=== PATIENT | male | born 1930 | race Caucasian/White ===

== ENCOUNTER 2018-12-19 09:52 | Inpatient (IN) | payer OTHER ==
[~2018-12-19] VITALS: Ht 172.7 cm; Wt 73.0 kg
[~2018-12-19 09:52] MED LIST: AMBEREN; ANUCORT-HC25 MG RECTAL; ASPIRIN EC81 M1 PO; ATENOLOL; ATENOLOL 50MG T50 M1 PO; AUGMENTIN 875875 MG PO; HUMALIN; HUMULINR100 SUBQ; LANTUS; LISINOPRIL; NEURONTIN 300300 M1 PO; NORCO 5-325 TA1 EACH PO; SIMVASTATIN40 MG PO; ZESTRIL20 MG PO
[2018-12-19 10:00] VITALS: BP 144/82
[2018-12-19 10:31] LABS: BASOPHILS 0.5 % (0.0-2.0); EOSINOPHILS 0.3 % (0.0-3.0); HEMATOCRIT 47.1 % (42.0-52.0); HEMOGLOBIN 15.9 gm/dL (14.0-18.0); LYMPHOCYTES 14.1 % (24.0-44.0); MCH 29.2 pg (26.0-34.0); MCHC 33.8 g/dL (28.0-37.0); MCV 86.2 fL (80.0-100.0); MONOCYTES 6.4 % (1.0-8.0); PLATELET COUNT 237 thou/uL (150-400); POLYS 78.7 % (36.0-66.0); RBC 5.46 mil/uL (4.50-6.00); RDW 13.8 % (10.5-14.5); WBC 7.6 thou/uL (4.0-11.0)
[2018-12-19 10:40] LABS: ANION GAP 9 mmol/L (7-16); BUN 18 mg/dL (7-18); CHLORIDE 98 mmol/L (98-107); CO2 30 mmol/L (21-32); CREATININE 1.3 mg/dL (0.7-1.3); GLUCOSE 263 mg/dL (74-106); POTASSIUM 3.8 mmol/L (3.5-5.1); SODIUM 137 mmol/L (136-145)
[2018-12-19 10:50] LABS: ALBUMIN 3.6 g/dL (3.4-5.0); SGOT 17 U/L (15-37); SGPT 17 U/L (30-65); TOTAL BILIRUBIN 0.6 mg/dL (<0.1-1.0); TOTAL PROTEIN 7.2 g/dL (6.4-8.2); TROPONIN-I <0.06 ng/mL (<0.06)
[2018-12-19 12:02] LABS: URINE BILIRUBIN NEGATIVE (Negative); URINE BLOOD 1+ (Negative); URINE CLARITY CLEAR; URINE COLOR YELLOW; URINE GLUCOSE-RANDOM* NEGATIVE (Negative); URINE KETONES 1+ (Negative); URINE PROTEIN (DIPSTICK) 2+ (Negative); URINE SPECIFIC GRAVITY 1.025 (1.005-1.035); URINE UROBILINOGEN 0.2 E.U./dl (0.2-1.0)
[2018-12-19 12:03] LABS: URINE LEUKOCYTES-REFLEX 2+ (Negative); URINE NITRITE-REFLEX POSITIVE (Negative)
[2018-12-19 12:06] LABS: AMP/METHAMP Negative (Negative); BARBITURATES Negative (Negative); BENZODIAZEPINES Negative (Negative); COCAINE Negative (Negative); METHADONE Negative (Negative); OPIATES Negative (Negative); PCP Negative (Negative)
[2018-12-19 12:11] LABS: BACTERIA-REFLEX >30 Many /HPF (None Seen); CASTS None Seen /LPF (None Seen); CRYSTALS None Seen /LPF (None Seen); SQUAMOUS None Seen /LPF (0-3); URINE RBC 0-2 Rare /HPF (0-2)
[2018-12-19 12:53] VITALS: BP 130/82
[2018-12-19 15:20] VITALS: BP 153/87
[2018-12-19] MEDS ORDERED: HUMULIN R100 UNIT/M SUBQ (15:20)
--- NOTE | 2018-12-19 16:26 | EKG ---
[place] [address] [facility] [place] [address] ELECTROCARDIOGRAM REPORT Name: VICENTAGERMAIN LAIRD Room #: 523B-B ADM IN M.R.#: [id number] ������������������ Admission: 12/19/18 ������������������ Attend Phys: Nino Murphy DO Discharge: ������������������ Date of : 32 Report #: [id number] ����������������������������������������������������������������� [id number] THIS REPORT FOR: //name// [facility] ED Test Date: 2018-12-19 Test Time: 10:22:25 Pat Name: GERMAIN YADAV Department: Room: [facility] Gender: M Cutter Operator: CLIFFORD : 1930 Requested By: Rachel Wong Order Number: [id number] MD: Aldo Suarez Measurements Intervals [place] Rate: 86 P: 80 MS: 154 QRS: -63 QRSD: 89 T: 78 QT: 383 QTc: 458 Interpretive Statements Sinus rhythm Multiform ventricular premature complexes Probable left atrial enlargement RSR' in V1 or V2, right VCD or RVH Inferior infarct, old Consider anterior infarct Electronically Signed On 12-19-2018 16:25:53 CDT by Aldo Suarez [email or web address] ��������������������������������������������� <ELECTRONICALLY SIGNED> ���������������������������������������� By: Aldo Suarez MD ��������������������������������������������� 12/19/18 1625 1022 1022 Aldo Suarez MD /EPI
--- NOTE | 2018-12-19 19:08 | NUR ---
PATIENT ARRIVED TO THE SENIOR BEHAVIORAL UNIT FROM ER AT 1336HOURS. ADMITTED TO ROOM 523-B. PATIENT IS ALERT, RESPONDS APPROPRIATELY TO ASSESSMENT QUESTIONS. PATIENT HAS PERIODS OF FORGETFULNESS, CONFUSION AND DISORGANIZED THOUGHTS. ACCORDING TO REPORT, PATIENT HAS DIAGNOSIS OF DEMENTIA. PATIENT IS ADMITTED BECAUSE HE WAS HAVING HALLUCINATION THAT HIS WAS IN DANGER, CALLED 911 MULTIPLE TIMES. HAS BEEN IN A FACILITY FOR SOME TIME PER REPORT. REPORT ALSO STATES THAT PATIENT VERBALLY THREATENED FAMILY MEMBERS. PATIENT HAS UROSTOMY BAG. REPORT STATES PATIENT RECEIVED A DOSE OF CEFTRIAXONE IN THE ER FOR POTENTIAL URINARY TRACT INFECTION. PATIENT IS VOLUNTARY AT THIS TIME. PATIENT DENIES SUCIDAL AND HOMOCIDAL IDEATION. HE DENIES DEPRESSION AND ANXIETY. LCTA, BS+X4, ABD SOFT NON-TENDER TO TOUCH. PATIENT DID EAT SUPPER. THIS NURSE CALLED DR. DIAZ' OFFICE TO SPEAK WITH A NURSE FOR MEDICATION LIST PER DR. AYALA DIRECTION, SPOKE WITH DR. DIAZ WHO STATES HE WILL PERSONALLY PUT IN HIS OWN ORDERS. BLOOD SUGAR BEFORE SUPPER WITH RESULT OF 202, HAS ORDERS FOR INSULIN TO START TOMORROW. PATIENT HAD A SHOWER AFTER SUPPER, DENIES HAVING PHYSICAL PAIN. PATIENT CURRENTLY IN BED RESTING, WILL MONITOR FOR SAFETY.
[2018-12-19 20:34] VITALS: BP 163/83
--- NOTE | 2018-12-19 23:52 | NUR ---
ASSUMED CARE OF THE PT AT 191 PM. ALERT ET CONFUSED AT TIMES, THOUGHT ONE OF THE OTHER PTS WAS HIS . WALKS WITH A STEADY GAIT. THE PT HAS A UROSTOMY BAG IN PLACE WITH URINE DRAINING IN IT WITHOUT ANY DIFFICULTY. DENIES ANXIETY AND DEPRESSION. DENIES SI/HI/A/V HALLUNICATIONS. REMAINS ON 12 MINUTE CHECKS FOR HIS SAFETY.
--- NOTE | 2018-12-20 05:45 | NUR ---
THE PT SLEPT MOST OF THE NIGHT. THIS MAGNETIC OBSERVER EMPTIED HIS UROLOGY BAG, IT HAD 250 CC OF CLEAR RACHAEL URINE. DEMI ET ROXI THIS AM.
[2018-12-20 06:10] LABS: CHOLESTEROL 182 mg/dL (<200); HDL CHOLESTEROL 62 mg/dL (>40); LDL CHOLESTEROL 107 mg/dL (<100); TC:HDL 2.9 Ratio (Not establshd); TRIGLYCERIDE 66 mg/dL (<150); VLDL 13 mg/dL (<40)
[2018-12-20 06:20] LABS: SERUM ASSESSMENT Clear
--- NOTE | 2018-12-20 06:38 | NUR ---
HTE PT SLEPT 6.8 HOURS LAST NIGHT.
[2018-12-20 07:44] VITALS: BP 145/74
[2018-12-20 12:18] VITALS: BP 1599/76
--- NOTE | 2018-12-20 18:57 | NUR ---
ASSUMED CARE AT 0715 TODAY. HE STATES HE IS ONLY WAS HERE BECAUSE HE WENT TO SEE HIS AT THE AL AT 0300. HE SPOKE WITH THE DR. WAS ON THE UNIT FOR MEALS AND ATTENDED GROUPS. HAS NO INSITE INTO WHAT BROUGHT HIM HERE. DENIES SI/HI, AVH. TOOK MEDICATIONS WITHOUT PROBLEMS.
[2018-12-20 19:23] VITALS: BP 136/70
--- NOTE | 2018-12-20 20:06 | NUR ---
ASSUMED CARE @ 19:15. IN ROOM IN BED. A&OX3. UNSURE OF THE DATE, AND HE REPORTS THAT IS HERE BECAUSE HE GOT ARRESTED FOR CALLING THE POLICE DUE TO HIS NOT BEING IN BED WHEN HE WOKE UP. HRRR LUNGS CTA, COLOSTOMY BAG INTACT. PT EMPTIED IT BY HIMSELF. CONVERSATIONAL AND ARTICULATE, HOWEVER HAS POOR INSIGHT INTO REASON FOR INPATIENT IN HOSPITAL. WILL CONTINUE TO MONITOR.
[2018-12-20 21:28] VITALS: BP 136/70
--- NOTE | 2018-12-20 21:42 | H ---
[facility] [place] [address] HISTORY AND PHYSICAL Name: GERMAIN MACK Room #: 523B-B ADM IN M.R.#: [id number] Admission: 12/19/18 ������������������ Attend Phys: Nino Murphy DO Discharge: ������������������ Date of : 32 Report #: [id number] THIS REPORT FOR: //name// CC: Nino Murphy FAM unknown DATE OF SERVICE: 12/19/2018 ADMIT CONSULT NOTE CHIEF COMPLAINT: Altered mental status. HISTORY OF PRESENT ILLNESS: The patient is an 88-year-old male, who is currently living alone. Up until recently, approximately the last 2 or 3 weeks ago, he was living in his home with his of over 60 years, Jazmine Mack. Mrs. Mack was hospitalized at [facility] with problems related to urinary tract infection and showed signs of neglect as evidenced by bed sores in multiple areas. At that time, I had lengthy visits with the patient and I suggested that it was time his move to a senior care and if he wanted he could choose to move in with her so that he could stay with her and that would be fine, but I did not think it was a good idea for her to stay at home anymore and I did not feel that he was capable of managing her care further. Since that time, I have received multiple phone calls from the patient's daughter, Cheyenne and her , Nguyen Dobbins and also phone calls at the office from them and from the patient's grandson, also named Germain or Fadi. They have been concerned at the elder the patient's increasing problems with confusion and poor memory and signs of poor judgment. For example, the patient has woken up and forgot that his no longer lives in the same house that he does and gone looking for her in the middle of the night. He has believed at different times that she had wandered off and other times that she had been kidnapped and has been quite distraught sometimes wondering what happened to her. I have also been informed by family members that and this was confirmed by senior care staff where his currently resides that the patient appeared at the senior care at 02:00 a.m. in the morning to visit his one day. 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 I have spoken with the patient in the past about limiting his driving or stopping completely and he merely states that he knows that that day is coming, but does not believe that it is here yet. I did advise more than one family member that they should call the [facility] to lodge a anonymous complaint if they [facility] [address] [place] [address] HISTORY AND PHYSICAL Name: GERMAIN MACK Room #: 523B-B ADM IN M.R.#: [id number] Admission: 12/19/18 ������������������ Attend Phys: Nino Murphy DO Discharge: ������������������ Date of : 32 Report #: [id number] saw the patient engaged in any such risky behaviors. Approximately 24 hours prior to this admission, I spoke with the elder, the patient by telephone. He again had significant delusions from which he was suffering that were obvious during our conversation. Several times, he referred to the fact that his was sleeping in the bedroom at their home where he was currently speaking to me. Then, he would state that she was not in bed and he could not find her and he was prophylaxed because he had "locked all the doors and windows, so she could not get out." Sometimes, he would then recollect that she was living at the senior care. I specifically asked him about some suicidal thoughts that he had communicated out loud in the presence of family members and he denied ever having made those claims or of having any suicidal intentions. He does possess a handgun, according to his daughter, Cheyenne and her Nguyen. Reportedly, his other daughter has an electronic computer file of a voice mail message that he left in which she was floridly delusional and threatening to multiple family members. In fact, I can confirm to this from personal experience during my phone call with him prior to this hospital stay. He was very angry at family members trying to get him help and referred to both of his daughters as ____ and jeremias. PAST MEDICAL HISTORY: The patient has a history of coronary artery disease and had coronary bypass surgery approximately 25 years ago. He has a history of bladder cancer and actually had cystectomy and prostatectomy 20 years ago and has a urostomy bag. He has also had cataract surgeries and hernia and tonsil surgeries in the past. He has a history of high blood pressure, hyperlipidemia and has had type 2 diabetes mellitus for well over 20 years. He doses himself with insulin despite increasingly bad vision, see above discussion. He has peripheral neuropathy. He has hemorrhoids. ALLERGIES: He has no known drug allergies. MEDICATIONS: Simvastatin 20 mg by mouth daily, gabapentin 600 mg p.o. at bedtime, aspirin 81 mg p.o. daily, lisinopril 20 mg p.o. daily, atenolol 50 mg p.o. daily. He uses Humulin R 15 units before breakfast and 22 units before lunch and dinner. He was recently on hydrocortisone acetate suppositories for inflamed hemorrhoids. FAMILY HISTORY: Not available. 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 He also has a grandson. He quit smoking many years ago about the time of his bypass surgery. No history of alcohol or other drug abuse. [facility] [address] [place] [address] HISTORY AND PHYSICAL Name: GERMAIN MACK Room #: 523B-B ADM IN .R.#: [id number] Admission: 12/19/18 ������������������ Attend Phys: Nino Murphy DO Discharge: ������������������ Date of : 32 Report #: [id number] REVIEW OF SYSTEMS: The patient insists that he is fine. He denies any headaches or problems with sleeping. He states that his vision is stable. He has not been checking his blood sugars recently. His hemorrhoids are better. He denies any recent falls or trauma. He denies any motor vehicle collisions. He denies chest pain or shortness of breath. He denies abdominal pain. He states that his bowel habits are regular. He denies any other significant aches or pains or concerns. He denies any confusion. When I asked him how he would handle his elderly 's lack of urine and stool continence, he replied to me that he had been a tester electronic scale his whole adult life and had been up to his keister in worse situations. PHYSICAL EXAMINATION: VITAL SIGNS: From the Emergency Room today show temperature of 36.2 degrees centigrade, pulse of 86, respirations of 17, blood pressure of 144/82 with a room air pulse oximetry of 99%. His reported weight is 141 pounds. GENERAL: The patient is a very pleasant elderly white male, who is very chatty. HEENT: The extraocular muscles are intact. Gross vision is not reassessed today, but is known to be fairly poor, although he can make out shapes and images and is wearing his glasses. Oropharynx is moist and pink. NECK: Supple. There is no adenopathy or thyromegaly or mass or JVD or bruit. LUNGS: Fairly clear bilaterally. CARDIOVASCULAR: Reveals a regular rhythm. ABDOMEN: Soft. Bowel sounds are present. No visceromegaly or masses. There is an urostomy in the right lower quadrant. EXTREMITIES: Without cyanosis or clubbing or peripheral edema. NEUROLOGIC: The patient has stocking glove distribution of sensory loss bilaterally. He has no other focal deficits except decreased vision. I did not perform an ophthalmoscopic exam or an otoscopic exam today. His hearing is grossly normal though. MENTAL STATUS: The patient is alert. He is oriented to person and place, but not time. No hallucinations at the time of my visit, but he did mention that there were strangers in his house when we spoke by phone recently. No one else has seen them or could confirm any such problem. At the moment of my exam, the patient did not appear delusional and was aware that his was in a senior care and that he was in the hospital. He had a full affect. I did not aggressively test his short and long-term memory. The paranoia which was marked during our telephone conversation today prior to this admission was much less in evidence today. ASSESSMENT AND PLAN: 1. Altered mental status - Etiology is likely to be multifactorial. I do believe the patient has some underlying dementia. However, it is difficult to isolate that from the fact that he is bordering on [facility] caret at the fact that his lifelong partner is not living in the same home that he is. Considerations include depression and adjustment disorder. I am grateful that he can be hospitalized for his safety while his mental and physical status is further [facility] [address] [place] [address] HISTORY AND PHYSICAL Name: GERMAIN MAKC Room #: 523B-B ADM IN José Miguel.#: [id number] Admission: 12/19/18 ������������������ Attend Phys: Nino Murphy, Discharge: ������������������ Date of : 32 Report #: [id number] evaluated. 2. Type 2 diabetes mellitus. The patient has a fairly benign lab workup in the Emergency Room, hyperglycemia was noted. My last lab tests for him were from in 07/2017. At that time, his lipids were good with a total cholesterol of 188. He has dirty urine because of the urostomy. His blood chemistry was remarkably good with glucose of 191 and elevated, but creatinine was 1.07. Electrolytes were essentially normal. Liver functions were normal. CBC showed a white count of 7100 with hemoglobin of 15.7, hematocrit of 225 and a normal differential. His hemoglobin A1c at that time however was 10.4, with a goal of hemoglobin A1c of 7 or slightly less. Given the patient's poor eyesight and the need to treat with insulin and inability to monitor his own blood sugar adequately or accurately, he is a great danger of problems related to its management, such as hypoglycemia and hyperglycemia. It is not clear if he is able to make good dietary choices at the present time because of his limited ability to cook for himself and relying on highly processed food for his meals. 3. Hypertension - We will monitor and treat accordingly. Goal is average systolic blood pressure of less than 140. 4. History of bladder cancer as outlined above - No evidence of recurrence. 5. Hyperlipidemia. We will continue him on medication for that. 6. History of coronary artery disease without evidence of angina. I am grateful for Dr. Murphy's getting involved in this challenging case and hope that we can help the patient with the aforementioned problems and return to a safe and productive lifestyle. ��������������������������������������������� <ELECTRONICALLY SIGNED> ���������������������������������������� By: Kvng Funes MD ��������������������������������������������� 12/20/18 2142 2327 0104 Kvng Funes MD /nt
[2018-12-21 00:06] LABS: GLYCOHEMOGLOBIN (HGB A1C) 9.5 % (4.8-5.6)
--- NOTE | 2018-12-21 05:16 | NUR ---
SLEPT IN BED, FOR A TOTAL OF 8 HOURS.
[2018-12-21 08:30] VITALS: BP 144/81
--- NOTE | 2018-12-21 09:35 | H ---
[facility] [address] [address] HISTORY AND PHYSICAL Name: GERMAIN YADAV Room #: 523B-B ADM IN M.R.#: [id number] Admission: 12/19/18 ������������������ Attend Phys: Nino Murphy DO Discharge: ������������������ Date of : 32 Report #: [id number] THIS REPORT FOR: //name// CC: Nino Murphy [facility] unknown DATE OF SERVICE: 12/19/2018 ATTENDING PHYSICIAN: Nino Murphy DO X RAY CONSULTANT: Kvng Funes MD REASON FOR ADMISSION: The patient brought to the Emergency Room by [place], [place] [employer], CIT officer, Dax, for repeated calls to the police, believes his was in the residence, though she has been placed several weeks back at a long term. I also spoke with the patient's daughter, Erlinda and her . HISTORY OF PRESENT ILLNESS: This is an 88-year-old male seen in the Emergency Room and then on the [facility]. The patient is giving a history that he had seen his at home. She has not been cared for. He minimizes any degree of cognitive impairment that he may have. The patient was not fully oriented to time and place. Interestingly, his residence was not disheveled according to the CIT officer. I spoke with Dr. Funes who states that the patient is unable to manage his diabetes mellitus appropriately. There have been ongoing concerns about his ability to live independently. Dr. Funes has been contacted with reports from his children that the patient is threatening his life. He has not made any kind of suicide attempt yet. The patient's is in the Alzheimer's unit with advanced dementia. He, in addition, according to the ER, called Dr. Funes' office to report that his is missing. Dr. Funes reports his episodes are more progressive. In the ER, the patient denied SI or HI. He reports his last visit with Dr. Funes was a few weeks ago. He denies recent illness. PCP, Dr. Funes. Affidavit done by family members that the patient has been hallucinating, verbally threatening to harm family members. PAST MEDICAL HISTORY: Includes High blood pressure, hypertension, diabetes mellitus, hyperlipidemia, bladder and prostate removed in 2005, has a urostomy bag, unclear if it was for cancer or other purposes. PAST SURGICAL HISTORY: CABG x 3, herniorrhaphy, tonsillectomy. HOME MEDICATIONS: Simvastatin 40 mg p.o. at bedtime, aspirin 81 mg p.o. daily, atenolol 50 mg p.o. at bedtime, insulin regular 15 units subcutaneously for breakfast, insulin regular 22 units subQ b.i.d., lisinopril 20 mg p.o. daily, [address] [address] HISTORY AND PHYSICAL Name: GERMAIN YADAV Room #: 523B-B ADM IN M.R.#: [id number] Admission: 12/19/18 ������������������ Attend Phys: Nino Murphy DO Discharge: ������������������ Date of : 32 Report #: [id number] Neurontin 600 mg at bedtime. I do not think that is an accurate medication regimen for the patient. I put him on 5 units of regular insulin t.i.d. with meals as well as making his Neurontin 200 mg 3 times a day besides the usual PRNs. I will defer other general meds to Dr. Funes' judgment. SOCIAL HISTORY: Denies recreational alcohol use, tobacco use. ALLERGIES: No known drug intolerance. REVIEW OF SYSTEMS: Done in the Emergency Room today: CONSTITUTIONAL: Negative for fever or chills. EYES: Negative for eye pain or visual change. HEENT: Negative for rhinorrhea or sore throat. RESPIRATORY: Negative for cough or shortness of breath. CARDIOVASCULAR: Negative for chest pains or palpitations. GASTROINTESTINAL: Negative for abdominal pain. No nausea, vomiting or diarrhea. GENITOURINARY: Negative for burning and urgency, frequency or hematuria. MUSCULOSKELETAL: Negative for back pain or muscle pain. SKIN: Negative for any rash. NEUROLOGIC: Negative for numbness, tingling or weakness. Otherwise, 10-point review of systems done by the ER staff was negative. PHYSICAL EXAMINATION: VITAL SIGNS: Today, BP 144/82, O2 sats 99%, temperature 36.2, pulse 86, respirations 17, weight 63.96 kilos which is 141 pounds. NEUROLOGIC: Normal gait and station. His physical exam was positive for urostomy bag in right lower quadrant. Otherwise, grossly negative. EKG done showed sinus rhythm, PVCs occasionally rate of 86. No STEMI. No EKG for comparison. LABORATORY DATA: Sodium 137, potassium 3.8, chloride 98, bicarbonate 30, anion gap 9, BUN 18, creatinine 1.3, estimated GFR 263, glucose 263, calcium 10.0, total bilirubin 0.6, AST 17, ALT 17, alkaline phosphatase 118. Troponin less than 0.06, albumin 3.6. CBC: H and H 15.9 and 47.1, white count 7.6, platelet count 237. UDS is negative. Urinalysis showed greater than 30 bacteria, 16-25 wbc's, positive nitrites, negative bilirubin, urine protein 2+, urine ketones 1+, urine blood 1+. The patient was given 1 g of Rocephin IV piggyback in the ER. I will defer to Dr. Funes but would overall recommend him to get a second dose 1 gram of Rocephin on 12/20/2018 and 12/21/2018. CURRENT MEDICATIONS IN THE HOSPITAL: It looks like Dr. Funes has written [facility] [address] [place] [address] HISTORY AND PHYSICAL Name: GERMAIN YADAV Room #: 523B-B ADM IN M.R.#: [id number] Admission: 12/19/18 ������������������ Attend Phys: Nino Murphy, Discharge: ������������������ Date of : 32 Report #: [id number] lisinopril 20 mg p.o. daily, Atorvastatin 40 mg p.o. daily. Aspirin 81 mg p.o. daily, insulin regular 15 units a.c. subq, gabapentin 200 mg t.i.d., ondansetron 4 mg p.o. q. 6 hours p.r.n. IMAGING THIS ADMISSION: None so far. MICROBIOLOGY: Urine cultures have been received. MENTAL STATUS EXAMINATION: This is a well-developed male appearing his stated age. Attention is limited, concentration is limited. Speech, increased rate and volume. Some psychomotor agitation, no psychomotor retardation. Denied auditory, visual or tactile hallucinations. Denied suicidal intent or plan. Denied hopelessness, helplessness. Denies homicidal intent or plan. Memory not formally tested. FORMULATION: An 88-year-old male brought from his residence for dementia evaluation. PLAN: OT, PT consult. Evaluate and stabilize. Patient likely will require Guardian/Conservator for placement in a memory care facility. . MEDICATIONS: I went ahead and made his Neurontin 200 mg 3 times a day, which will act as a mood stabilizer given many medicines he is on. Otherwise, I would like to screen her on second hospital day. time spent on evaluation, reveview of records and coordination of care was greater than 90 minutes. ESTIMATED LENGTH OF STAY: 10-14 days. STRENGTHS: He is not sure. WEAKNESSES: Stuck with family. is already institutionalized. ��������������������������������������������� <ELECTRONICALLY SIGNED> ���������������������������������������� By: Nino Murphy DO ��������������������������������������������� 12/21/18 0935 1802 1939 Nino Murphy DO /nt
--- NOTE | 2018-12-21 10:36 | NUR ---
ASSUMED PATIENT CARE AT 0700. PATIENT UP IN DR AT THAT TIME. CONFUSED MOOD, HAPPY AFFECT, NO BEHAVIOERS. VSS, COMPLIANT WITH MEDICATIONS. CONTINUE TO MONITORL.
[2018-12-21 14:48] VITALS: BP 146/50
[2018-12-21 20:09] VITALS: BP 133/71
--- NOTE | 2018-12-21 20:39 | NUR ---
Pt resting in bed at beginning of shift, requesting fluids for dry mouth. Pt drank water and juice. When pt awakened he rearranged the sheets on his bed 3 times. Pt compliant with medication. Pt ambulating steady and independently. fsbs 195, previously was 78 and didn not receive dinner insulin. Pt remains alert to self and situation, not time. No statements at this time regarding hallucinations or delusions.
--- NOTE | 2018-12-21 21:40 | NUR ---
C/S results reviewed by Dr Murphy and Jona x 1 ordered.
--- NOTE | 2018-12-21 21:53 | NUR ---
Pt compliant with IM antibiotic, he verbalized understanding that he had a urinary infection upon arrival to hospital.
--- NOTE | 2018-12-22 05:52 | NUR ---
Pt had urostomy bag leak, new one provided and pt changed himself.
[2018-12-22 07:30] VITALS: BP 140/75
[2018-12-22 09:00] VITALS: BP 140/75
--- NOTE | 2018-12-22 10:28 | NUR ---
PT HAS BEEN IN HIS ROOM THIS AM. PT REFUSING MEDS AND EATING. PT STATED HE DIDN'T WANT TO IN HERE. PT STATED THAT YESTERDAY HE WAS TOLD HE HAD A LITTLE ALZHEIMERS. HE STATED HE WANTS TO GO BACK TO HIS HOME. PT STATED THAT HE WILL DRINK FLUIDS, BUT NOT EAT. PT ALMOST DIDN'T WANT BLOOD SUGAR TAKEN. THIS NURSE ENCORAGED TO EAT AND TAKE MES. PT DID TAKE PO MEDS FOR NURSE. PT TALKED ABOUT POLICE COMING TO HIS HOUSE AT 0300. HE SAID HE DIDN'T DO ANYTHING WRONG. NOW HE IS HERE.
--- NOTE | 2018-12-22 13:30 | NUR ---
PT UP WALKING IN [place] AND HE IS GOING TO GROUP NOW.
--- NOTE | 2018-12-22 17:20 | NUR ---
PT DID EAT DINNER THIS EVENING. PT ASKED ABOUT CARLO ABOUT IF HE SHOULD EAT DINNER. ENCOURAGED HIM TO EAT.
[2018-12-22 20:37] VITALS: BP 126/72
--- NOTE | 2018-12-23 02:52 | NUR ---
ASSUMED CARE @ 19:15. I ROOM, LYING IN BED. OPENED EYES TO VOICE. REPORTED THAT HE IS HERE DUE TO A MISTAKE BY THE POLICE. THEY CALLED HIM, NOT THE OTHER WAY AROUND. A&OX2. ORIENTED ONLY TO SELF AND DATE. PO MEDS PROVIDED, AND TAKEN WHOLE WITH WATER. IM ROCEPHIN PROVIDED, PT QUESTIONED WHAT IT WAS FOR AND HE VERBALIZED UNDERSTANDING THAT HE HAS A UA WHEN HE CAME INTO THE HOSPITAL. WILL CONTINUE TO MONITOR.
[2018-12-23 04:00] VITALS: BP 126/72
--- NOTE | 2018-12-23 04:25 | NUR ---
SLEEPING THROUGHOUT THE NOC. RESPIRATIONS EVEN AND UNLABORED. WILL CONTINUE TO MONITOR.
[2018-12-23 07:50] VITALS: BP 113/56
[2018-12-23 14:12] VITALS: BP 113/56
--- NOTE | 2018-12-23 14:26 | NUR ---
[facility] AT 0715 TODAY. PT. ON THE UNIT FOR MEALS AND GROUPS. SPENT MOST OF THE REST OF THE TIME IN HIS ROOM LYING ON THE BED. DID TALK TO ANOTHER PEER FOR A PERIOD OF TIME AFTER LUNCH.
[2018-12-23 22:20] VITALS: BP 138/69
--- NOTE | 2018-12-24 02:46 | NUR ---
ASSUMED CARE @ 19:00. IN ROOM LYING IN BED, AND ALSO WALKING FROM BEDROOM TO THE DAY ROOM. DENIES SI, HI, AND HALLUCINATIONS. TELLS AN EXTREMELY DISCONNECTED STORY REGARDING WHY HE IS HERE AN IN PATIENT. HE IS CONFUSED TO WHETHER THIS IS A HOSPITAL OR A MOTEL. HE SAYS THAT HE IS IN THE HOSPITAL BECAUSE HIS IN IN AN [facility]. 2100 MEDS GIVEN WHOLE WITH WATER. WILL CONTINUE TO MONITOR.
--- NOTE | 2018-12-24 02:50 | NUR ---
PATIENT OUT OF BED @ 0130. IS QUITE CONFUSED, LOOKING FOR HIS . SAYS HE THOUGHT SHE WAS IN THE SECOND BED IN HIS HOSPITAL ROOM. CONFUSED TO WHETHER HE IS IN A HOSPITAL OR IN A MOTEL. WORRIED ABOUT HIS WALLET, WORRIED ABOUT THE HOSPITAL BILL, WORRIED ABOUT HIS . ORDER OBTAINED FOR 50MG SEROQUEL @ 00:30. ALSO 50 MG SEROQUEL Q6 HOUR PRN ANXIETY AND AGITATION. WATCHED TV FOR A WHILE, AND THEN LAID DOWN. WILL CONTINUE TO MONITOR.
[2018-12-24 03:43] VITALS: BP 138/69
[2018-12-24 07:30] VITALS: BP 110/59
[2018-12-24 09:48] VITALS: BP 110/59
--- NOTE | 2018-12-24 10:02 | NUR ---
ASSUMED CARE AT 0600 THIS MORNING. PT. ROAMING THE HALLS LOOKING FOR HIS . HE TOLD STAFF HIS WAS IN THE OTHER BED IN HIS ROOM. HE WAS WANDERING IF ANYONE SAW HIS SHE IS NOT IN THE ROOM ANY LONGER. STAFF ATTEMPTED TO TELL THE PT. HIS IS NOT HERE AND HAS NOT BEEN. HE JUST SHOOK HIS HEAD AND SAID: I DON'T KNOW WHAT IS HAPPENING TO ME. HE THEN WENT TO HIS ROOM AND LAYED DOWN. HE THEN REFUSED BREAKFAST IN SPITE OF MANY FAILED ATTEMPTS BY STAFF TO GET PT. TO THE DINNING ROOM FOR BREAKFAST. HE WAS COMPLIANT WITH HIS MEDICATIONS.
[2018-12-24 20:57] VITALS: BP 128/76
--- NOTE | 2018-12-25 00:59 | EKG ---
[place] [address] [facility] [place] [employer] [place] [address] ELECTROCARDIOGRAM REPORT Name: KAROGERMAIN Albarran Room #: 523B-B ADM IN M.R.#: [id number] ������������������ Admission: 12/19/18 ������������������ Attend Phys: Nino Murphy DO Discharge: ������������������ Date of : 34 Report #: [id number] ����������������������������������������������������������������� [id number] THIS REPORT FOR: //name// [facility] Test Date: 2018-12-24 Test Time: 14:32:21 Pat Name: GERMAIN YADAV Department: Room: 523B B Gender: M Machine Cell Tuber: LENKA : 1930 Requested By: Nino Murphy Order Number: [id number] MD: Doron Duran Measurements Intervals [place] Rate: 88 P: 54 MI: 175 QRS: -65 QRSD: 91 T: 92 QT: 377 QTc: 457 Interpretive Statements Sinus rhythm Ventricular premature complex left axis deviation poor R wave progression Compared to ECG 12/19/2018 10:22:25 no significant changes Electronically Signed On 12-25-2018 0:59:28 CDT by Doron Duran [email or web address] ��������������������������������������������� <ELECTRONICALLY SIGNED> ���������������������������������������� By: Doron Duran MD ��������������������������������������������� 12/25/18 0059 [id number] Doron Duran MD /EPI
--- NOTE | 2018-12-25 03:37 | NUR ---
Resident alert and oriented x3. Resident was able to state name, location, date and time. HRR. Lungs CTA to all lobes. Abdomen soft, round and non-tender. Bowel sounds present x4. Resident states that his last BM was 12/22/18. Resident states that he feels constipated which is a chronic concern for him. Medications reviewed. Resident has PRN Milk of Magnesia ordered by MD. Medication offered to resident which he accepted. Resident denies having a bowel movement at this time. Resident has a history of bladder cancer. Resident has a urostomy to the lower abdomen. Urostomy bag is intact. Stoma draining clear, light yellow urine. Resident denies any pain or discomfort at this time. Resident blood sugar was 56 prior to this nurse assuming care of patient. Blood sugar re-checked and was 211 this evening. No s/s of hyper/hypoglycemia observed this shift. Resident has not displayed any exit seeking behaviors this shift. Skin appears warm, dry and intact. Resident does have a bruise to the top of his left forearm. Bruise is dark purple in color. Resident states that it was from having his blood drawn. Resident took medications whole with water with no concern. Resident educated on medications prescribed, usage and side effects. Resident fell asleep approximately 10pm and was up for approximately 30 minutes around 12am. Resident is resting in bed quietly at this time.
[2018-12-25 12:48] LABS: URINE BILIRUBIN NEGATIVE (Negative); URINE BLOOD TRACE (Negative); URINE CLARITY CLEAR; URINE COLOR YELLOW; URINE GLUCOSE-RANDOM* 1+ (Negative); URINE KETONES NEGATIVE (Negative); URINE NITRITE-REFLEX NEGATIVE (Negative); URINE PROTEIN (DIPSTICK) 1+ (Negative); URINE SPECIFIC GRAVITY 1.015 (1.005-1.035); URINE UROBILINOGEN 0.2 E.U./dl (0.2-1.0)
[2018-12-25 12:50] LABS: URINE LEUKOCYTES-REFLEX 2+ (Negative)
[2018-12-25 13:16] LABS: BACTERIA-REFLEX None Seen /HPF (None Seen); CASTS None Seen /LPF (None Seen); CRYSTALS None Seen /LPF (None Seen); SQUAMOUS 0-3 Few /LPF (0-3); URINE WBC-REFLEX 6-15 Few /HPF (0-5)
[2018-12-25 13:17] LABS: URINE RBC 3-10 Few /HPF (0-2)
[2018-12-25 13:33] VITALS: BP 93/47
--- NOTE | 2018-12-25 13:44 | NUR ---
ASSUMED CARE AT 0715 THIS MORNING. PT. IN BED AT THE TIME. BREAKFAST ARRIVED AT 0800. WHENT TO PT. ROOM TO GET HIM FOR BREAKFAST AND GIVE HIS MEDICATIONS. PT. LYING ACROSS THE BED, WRESTLING WITH HIS BLANKETS. WHEN THIS ACCOUNT DEVELOPMENT SPECIALIST ASKED THE PT. WHEN ASKED WHAT HE WAS DOING, HE RETORTED: I CAN'T GET UP. I CAN'T FIND THE WAY OUT OF HERE. THIS RN HELPED THE PT. UP AND WALKED HIM TO THE DINNING ROOM. PT. UP MOST OF THE DAY ON THE UNIT, ATTENDING GROUP. HE CONTINUED TO BE CONFUSED BUT LESS CONFUSED LUNCH TIME THAN HE WAS THIS MORNING. MADE MED CHANGES TO ASSIST WITH PT'S INCREASED CONFUSION. HIS INSULIN ALSO WAS CHANGED. HE DENIES SI/HI, BUT DOES TALK SOME ABOUT AVH IN THE FORM OF PEOPLE TALKING TO HIM. UA COLLECTED AND SENT TO LAB PER ORDER LAB SHOWED ABNORMAL. STARTED PT. ON ABO. PT. INFORMED OF CHANGES.
[2018-12-25 19:42] VITALS: BP 115/63
--- NOTE | 2018-12-25 23:09 | NUR ---
Patient sitting in dining room at time of this nurse assuming care. Patient denies any SI/HI/AH/VH. Patient has had flight of ideas, delusional thoughts on why or how he arrived for admission. Patient would change stories multiple times. Difficulty focusing. Patient received second dose of Amoxicillin for the diagnosis of UTI. No s/s of adverse effects observed at this time. Patient reports feeling constipated at times, then reports that he had a BM yesterday 12/24/18. Abdomen soft, round, nontender. Bowel sounds present x4. Patient became tearful when he talked about his . Reports that he is feeling guilty about having her admitted to a group home. No wandering observed. Patient took medication without difficulty. Education provided on prescribed antibiotic treatment and infectious process. Patient resting quietly in bed at this time.
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
[2018-12-26 07:35] VITALS: BP 119/57
--- NOTE | 2018-12-26 08:50 | NUR ---
0715: Report from noc shift, care assumed. Initial assessment completed, pt concerned about urostomy leaking, exam negative, reassured pt that no leak noted, pt accepted information, dressed self for a.m. meal, ambulatory to DR, feeds self, scheduled Insulin given, a.m. accu-check 184. Confusion noted with instructions, forgets easily about taking pills, attempted to pour pills in coffee, re-direction successful. No agitation noted at this time.
--- NOTE | 2018-12-26 11:27 | NUR ---
Weekly Recreational Therapy Progress Note Date of Admission: 12/19/18 Date of Activity Therapy Assessment: 12/22/18 Activity Goal: Patient will participate in 1 recreational therapy group per day until discharge. Initial Goal: 1 group per day. Weekly progress towards goal: On track Group participation level: Moderate Behaviors observed: Ocassional disorientation, tearful at times when speaking about , perseverates on situation and RFV, less isolation to room. Plan: No change towards goal
[2018-12-26 19:28] VITALS: BP 111/53
--- NOTE | 2018-12-26 20:59 | NUR ---
Pt watchiing tv in day room and had hs snack. Compliant with fsbs and medications. Caring for own urostomy bag. Two more ordered from CS. Pt smiling hugging linnette nurses upon arrival. No verbalizations regarding delusions or hallucinations.
--- NOTE | 2018-12-26 21:12 | NUR ---
Pt focusing on urostomy bag not having enough stick in the tape. He was ruminating on this fact and walking in lanza and room without a bag attached. Pt provided new bag with adherence and redirected to place on.
[2018-12-27 07:00] VITALS: BP 86/60
--- NOTE | 2018-12-27 08:53 | NUR ---
0720: Report from [facility] shift, care assumed. Awake, ambulating in halls, gait steady, speech clear/appropriate for age. Ambulatory to DR, watching TV quietly, accu-check 210, scheduled insulin to be given with a.m. meal. Denies pain or contipation, states last BM on 12/24. Continues on ABT for UTI, no adverse reactions noted. Takes a.m. meds whole w/o difficulty. 0830: Lisinopril po held for b/p of 86/60, will re-check b/p for monitoring.
[2018-12-27 20:28] VITALS: BP 143/75
--- NOTE | 2018-12-27 20:50 | NUR ---
ASSUMED CARE @ 19:15. IN ROOM, A&OX2. AMBULATING AD CARRIE.
--- NOTE | 2018-12-28 01:19 | NUR ---
TOOK 2100 MEDS WHOLE WITH WATER. IN BED AT THIS TIME, EYES CLOSED, RESPIRATIONS EVEN AND UNLABORED. WILL CONTINUE TO MONITOR.
[2018-12-28 01:22] VITALS: BP 143/75
--- NOTE | 2018-12-28 03:08 | NUR ---
CONTINUES TO BE IN BED, RESPIRATIONS EVEN AND UNLABORED. WILL CONTINUE TO MONITOR.
[2018-12-28 07:30] VITALS: BP 123/54
--- NOTE | 2018-12-28 11:55 | NUR ---
RONNIE spoke wiht Jay Avalos [phone] privacy attorney for pt's dghts. they will be seeking guardianship. This information has been supplied to and RONNIE in email. Seafood Manager has requested that a letter of incapacitation be sent to [phone] or email [email or web address]. This is expected to be filed Tuesday, Tue or .
[2018-12-28 12:22] VITALS: BP 123/54
--- NOTE | 2018-12-28 12:29 | NUR ---
ASSUMED CARE AT 0715 TODAY. WAS IN BED AT THE START OF THE SHIFT. B/P, BLOOD SUGAR TAKEN. HE GOT UP FOR BREAKFAST. AFTER BREAKFAST HE ATTENDED GROUP THEN SAT AND TALKED WITH FEMALE PEER. DENIES SI/HI OR AVH. VERBALIZED NOT UNDERSTANDING WHY HE IS STILL HERE. HE BLAMES HIS DAUGHTER FOR HIM NOT BEING ABLE TO GO HOME AT THIS TIME. HE ALSO VERBALIZES BEING WORRIED ABOUT HIS AND WANTING T0 SEE HER. PLEASANT AND COOPERATIVE WITH STAFF OR PEERS. COMPLIANT WITH TAKING HIS MEDICATIONS AND BLOOD SUGARS.
--- NOTE | 2018-12-28 14:53 | NUR ---
RONNIE spoke with Dght Cheyenne regarding placement and guardianship. Both dghts are going to be guardians over both of thier parents. She stated that they will likely be moving their mom to another half-way , maybe [facility], and will have this pt placed there too. SW reinforced that they needed to start looking into placement right away. Sw will assist as needed, and send referrals when requested. This information was relayed to Director of CM.
--- NOTE | 2018-12-28 16:33 | NUR ---
RONNIE sent a signed letter of incapacitation to Lianet Avalos. Fax completed.
[2018-12-28 20:52] VITALS: BP 124/63
--- NOTE | 2018-12-28 23:51 | NUR ---
Patient alert and oriented to person and place. Disoriented on current time and situation. Patient re-orientated with success. Patient denies any SI/HI/AH/VH at this time. Patient took medications whole without difficulty. Patient continues on abx tx for dx of UTI. No s/s of adverse effects noted at this time. Patient interacting well with staff and peers. Patient states that he is concerned about his and he is ready to go home. Patient calm and cooperative. Went to sleep with no difficulties this shift.
--- NOTE | 2018-12-29 04:53 | NUR ---
Patient has been up to the bathroom a couple times throughout the night. Patient has stayed in his room throughout the night. Appears to have slept well through the night.
--- NOTE | 2018-12-29 08:44 | NUR ---
Assess due to length of stay on senior behavioral health unit. Pt eating 100% all meals, wt hx unknown, current BMI is 22. BG showing improvement. Low nutrition risk
[2018-12-29 11:22] VITALS: BP 120/63
--- NOTE | 2018-12-29 15:11 | NUR ---
UP WITH SLOW STEADY GAIT. EATS MEALS IN DINING ROOM GOOD APPETITE. SPOKE WITH DAUGHTER ON PHONE. ATTENDS GROUP THERAPY. DENIES PAIN.
[2018-12-29 19:33] VITALS: BP 150/72
--- NOTE | 2018-12-29 22:06 | NUR ---
Pt interacting with peers in day room. Pts urostomy intact. No verbalization regarding hallucinations or delusions. Continues on amoxicillin for uti. Compliant wiht meds and fsbs. Had hs snack.
--- NOTE | 2018-12-30 01:06 | NUR ---
Pt awakened stated his urostomy leaked, he was provided new bag for changing.
[2018-12-30 07:40] VITALS: BP 135/67
[2018-12-30 08:00] VITALS: BP 135/67
--- NOTE | 2018-12-30 09:45 | NUR ---
PT EATING BREAKFAST. PT IN FAIR MOOD. PT STATED HE TALKED TO DAUGHTER YESTERDAY AND SHE SAID HIS IS DYING AND NOT OPENING HER EYES. PT STATED HE IS GETTING EVALUATED TUESDAY FOR SOME TESTING. PT COOROPERATIVE.
--- NOTE | 2018-12-30 17:37 | NUR ---
GOT TO TALK TO DAUGHTER KEISHA ON PHONE. EATING DINNER. PATIENT HAS MOSTLY STAYED IN ROOM OTHER THAN MEALS.
[2018-12-30 19:38] VITALS: BP 156/72
--- NOTE | 2018-12-30 21:54 | NUR ---
Pt interacting with peers in dining room, smiling half huggs towards staff. No discussions related to delusions or hallucinations. Pt no longer taking amoxicillin. Urostomy intact, compliant with meds, snack and fsbs. Gait steady.
--- NOTE | 2018-12-31 06:34 | NUR ---
Pt changed urostomy bag this am it leaked throughout the night, pts urostomy bag had to be changed yesterday morning as well.
[2018-12-31 07:40] VITALS: BP 122/62
[2018-12-31 09:12] VITALS: BP 122/62
--- NOTE | 2018-12-31 09:29 | NUR ---
PT. ON THE UNIT FOR BREAKFAST. HE IS ORIENTED X 2. HE IS PLEASANT AND COOPERATIVE WITH STAFF. HE TOOK HIS MEDICATIONS WITHOUT PROBLEMS NOTED. HE ATTENDED MORNING GROUP. DENIES SI/HI.
[2018-12-31 19:45] VITALS: BP 123/58
--- NOTE | 2019-01-01 03:25 | NUR ---
Patient alert and oriented x3. Patient disoriented on situation. Patient still believes that he has been hospitalized due to the police being mad at him because he called them 3 different times in one night. Patient denies any SI/HI/AH/VH. Patient worried about his because he states that she is dying and will not open her eyes. Patient ate PM snack. Took medications whole without difficulty. Urostomy bag is intact. Patient interacting well with staff and peers this shift. Patient has been sleeping and resting well most of the night.
[2019-01-01 07:35] VITALS: BP 101/58
--- NOTE | 2019-01-01 09:30 | NUR ---
PT UP IN GOOD SPIRITS THIS AM. PT STATED HE IS HAVING A DR. VISIT TODAY. PT COOROPATIVE WITH STAFF AND TAKES MEDS WITHOUT ANY ISSUES.
--- NOTE | 2019-01-01 17:09 | NUR ---
TODAY PT HAS HAD EVAL FROM DR. HERNANDEZ. PT STATED THAT IT DIDN'T EYE CARE PROFESSIONAL VERY GOOD. PT VISITNG WITH ANOTHER PT DURING DINNER. NO AGGRESSIVE BEHAVIOR SEEN. PT HAS BEEN COMPLIENT.
[2019-01-01 19:48] VITALS: BP 120/61
--- NOTE | 2019-01-01 21:45 | NUR ---
ASSUMED CARE OF THE PT AT 1914 PM. ALERT ET ORIENTED X 2. MAKES NEEDS KNOWN. THE PT WAS UP WALKING IN THE HALLWAY WHEN THIS HORSE FARM MANAGER CAME ON DUTY. DENIES ANXIETY, DEPRESSION, SI/HI/A/V HALLUNICATIONS. WALKS WITH A STEADY GAIT. REMAINS ON 12 MINUTE CHECKS FOR HIS SAFETY.
--- NOTE | 2019-01-02 02:59 | NUR ---
THE PT APPEARS TO HAVE BEEN SLEEPING PART OF THE NOC SHIFT, DOES GET UP TO GO TO THE BATHROOM AND THEN BACK TO BED. REMAINS ON 12 MINUTE CHECKS FOR HIS SAFETY.
--- NOTE | 2019-01-02 06:25 | NUR ---
THE PT SLEPT 9.8 HOURS LAST NIGHT.
[2019-01-02 07:40] VITALS: BP 128/64
[2019-01-02 11:18] VITALS: BP 126/60
--- NOTE | 2019-01-02 11:30 | NUR ---
ASSUMED CARE AT 0715 TODAY. PT. UP AND ON THE UNIT FOR MEALS AND GROUPS. PLEASANT AND COOPERATIVE WITH STAFF. VERBALIZING HE DOES NOT LIKE THAT HE WILL HAVE TO GO TO PLACEMENT AND NOT TO HIS HOME. HE IS RUMINATING ON THIS FACT. STAFF ARE UNABLE TO GET HIM TO CHANGE THE DIALOGUE. COOPERATIVE WITH TAKING MEDICATIONS. DENIES HI/SI WELL AVH AT THIS TIME.
--- NOTE | 2019-01-02 13:20 | NUR ---
Date of Admission: 12/19/18 Recreational Therapy Weekly Progress Note Date of Activity Therapy Assessment: 12/22/18 Activity Goal: 1 group per day. Initial Goal: Patient will participate in 1 recreational therapy group per day until discharge. Weekly progress towards goal: Achieving current goals Group participation level: Full Behaviors observed: Patient has shown increase in participation to date. Pt shows appropriate social skills upon interaction with milieu. Pt also shows increase in motivation to participate in afternoon groups. Plan: Increase group participation - Patient will participate in 2 recreational therapy groups per day until discharge.
[2019-01-02 20:47] VITALS: BP 131/71
--- NOTE | 2019-01-02 22:00 | NUR ---
ASSUMED CARE OF THE PT AT 191 PM. THE PT WAS LYING IN BED WHEN THIS EMERGENCY DEPARTMENT MANAGER CAME ON DUTY. DENIES PAIN, SI/HI/A/V HALLUNICATIONS. DENIES ANXIETY AND DEPRESSION. REMAINS ON 12 MINUTE CHECKS FOR HIS SAFETY.
--- NOTE | 2019-01-03 06:41 | NUR ---
THE PT SLEPT 9 HOURS LAST NIGHT.
[2019-01-03 07:53] VITALS: BP 136/54
--- NOTE | 2019-01-03 08:30 | NUR ---
PT OUT EATING BREAKFAST COMMUNICATING WITH OTHER PATIENTS, PT COORAPATIVE WITH STAFF. PT WANTING TO GET OUT OF HERE, THIS NURSE STATED WAITING ON PLACEMENT. PT DENIES ANY PAIN. PT STATED HIS UROSTOMY BAG WAS LEAKING THIS AM, HE HAD SOME LIQUID IN HIS BELLY BUTTON, BAG APPEARS INTACT. PT THOUGHT HE WAS AT [facility]. PT KNOWS ITS MAY AND SELF. PT STATED HE DIDN'T SLEEP WELL LAST NIGHT.
[2019-01-03 10:00] VITALS: BP 140/87
--- NOTE | 2019-01-03 12:08 | NUR ---
PT STATED THAT HE HAD SOME DIZZINESS WALKING IN [place]. WILL ASSESS.
--- NOTE | 2019-01-03 12:54 | NUR ---
OBTAINED ORTHOSTATIC BP FOR PT COMPLAINED OF DIZZINESS. SITTING 90/58, 73. AND STANDING 103/50, 77.
--- NOTE | 2019-01-03 14:37 | NUR ---
PT GOING TO GROUP AND FELT WEAK. TOOK BLOOD SUGAR 157.
--- NOTE | 2019-01-03 15:04 | NUR ---
SW attempt tpo speak with last turner that was appointed by py daughter Cheyenne. SW left a message with the last turner trade union secretary requesting a call back. SW have not heard fro the last turner concerning if he has being assigned, and will file for guardianship. SW will follow-up with the treatment team.
[2019-01-03 19:14] VITALS: BP 143/63
--- NOTE | 2019-01-03 19:47 | NUR ---
ASSUMED CARE OF THE PATIENT AT 1915PM. SITTING IN THE DAYROOM WHEN THIS ENGRAVER TENDER CAME ON DUTY, STATED THAT HE FELT BETTER TODAY. DENIES ANXIETY AND DEPRESSION, SI, HI, A/V HALLUNICATIONS. REMAINS ON 12 MINUTE CHECKS. FOR THE PT'S SAFETY.
[2019-01-04 07:42] VITALS: BP 102/70
--- NOTE | 2019-01-04 09:39 | NUR ---
ASSUMED PATIENT CARE AT 0715. PATIENT UP IN D.R. AT THAT TIME. ATE 100% OF BREAKFAST, ATTENDING A.M. R.T. GROUP AT THIS TIME. PATIENT GIVEN A NEW UROSTOMY BAG TO REPLACE THE ONE THAT HE HAD ON, WHICH WAS LEAKING PER PATIENT. CONTINUE TO MONITOR.
[2019-01-04 11:01] VITALS: BP 130/67
--- NOTE | 2019-01-04 18:22 | NUR ---
PATIENT DISPLAYED NO BEHAVIORAL ISSUES, RELAXED AFFECT, MOOD CALM. PATIENT UP FOR ALL MEALS, PARTICIPATED IN ALL GROUP SESSIONS. COMPLIANT WITH MEDICATIONS, INCLUDING INSULIN ADMINISTRATION.
[2019-01-04 19:51] VITALS: BP 135/58
--- NOTE | 2019-01-04 20:47 | NUR ---
ASSUMED CARE @ 19:15. IN DAY ROOM WATCHING TV AND TALKING ON THE HOUSE PHONE. HRRR, LUNGS CTA, REPORTS BM LAST NOC, ABD SOUNDS NORMOACTIVE. TOOK 2100 MEDS WHOLE WITHOUT DIFFICULTY. NO DELUSIONS NOTED, CONTINUES TO HAVE CONFUSION. RETIRED @ 2100. WILL CONTINUE TO MONITOR.
[2019-01-04 21:10] VITALS: BP 135/58
--- NOTE | 2019-01-05 02:04 | NUR ---
Continues to be in bed, eyes closed, respirations even and unlabored.
--- NOTE | 2019-01-05 06:02 | NUR ---
Woke up and emptied bladder bag. Did not close it properly and soaked bed. Bedding and clothing changed. Slept 6.8 hours.
[2019-01-05 07:40] VITALS: BP 141/70
--- NOTE | 2019-01-05 09:35 | NUR ---
[id number]: Report from noc shift, care assumed. Awakens readily to verbal stimuli, oriented x3, forgetful, unable to recall events of the noc or prior day. Ambulatory in lanza and to DR, appetite good, consumed 100% of meal. Pt became tearful when speaking about new dx and being apart from . Cooperative with staff.
--- NOTE | 2019-01-05 10:32 | NUR ---
Nutrition: pt admitted with AMS, increased confusion, visual hallucinations. Seen due to followup on [facility] unit. Stable weights per pt. BG 101-297. Carb controlled diet. Has mealtime insulin orders only. Follow BG trends as they are trending higher than initial assessment. May require insulin adjustment. Eating well, 100% of meals and likes the food, no complaints. Low nutrition risk.
--- NOTE | 2019-01-05 16:13 | NUR ---
RONNIE left a message on [email or web address] to verify if the pt daughter laisha came to sign the documentation to proceed in guardianship. RONNIE provided contact information asking if he return the call.
[2019-01-05 19:54] VITALS: BP 147/67
--- NOTE | 2019-01-05 23:51 | NUR ---
Patient has been up and restless. Patient reports that he has things crawling under his skin. Patient also reports feeling jumpy. Patient provided 1:1 education and relaxation techniques. Patient offered snack/fluids around 11:30pm. Patient is in room now. Patient has been confused and delusional this shift. Patient believes that he is at work, in a bank, in a school. Answer has fluctuated. Patient re-orientated multiple times this shift, not effective. Patient disoriented on time and situation. Patient spoke with his daughter Cheyenne via phone earlier this evening.
[2019-01-06 01:13] VITALS: BP 147/67
--- NOTE | 2019-01-06 04:22 | NUR ---
Patient denies HI/AH/VH this shift. When patient stated that he was having tremors, he stated that he may as well . Patient denies SI. Upon further questioning, patient stated that he was just kidding. Patient has been able to rest in bed since approximately midnight. Patient in denial regarding his forgetfulness and confusion. When patient is re-orientated, he will state, oh that is what I meant. Patient asked more questions about dementia and Alzheimer's disease. Patient was tearful at times and appreciative of the 1:1 education.
--- NOTE | 2019-01-06 05:35 | NUR ---
Patient slept a total of 7.2 hours this shift. After having 1:1 conversation and relaxation technique review, patient has been able to rest quietly throughout the night.
[2019-01-06 07:36] VITALS: BP 127/63
--- NOTE | 2019-01-06 09:41 | NUR ---
ASSUMED PATIENT CARE AT 0700. PATIENT UP IN HIS ROOM AT THAT TIME. UP FOR BREAKFAST, COMPLIANT WITH MEDICATIONS, C/O OF BEING "WEAK AND TIRED." PATIENT OBSERVED WITH TREMORS ON THE ROBOTICS TECHNOLOGIST, PER REPORT. NEW MEDICATION, ARICEPT STARTED RECENTLY. FLAT AFFECT, CONTUSED MOOD, NO BEHAVIORS TO DATE THIS SHIFT. VSS, BLOOD GLUCOSE LEVEL 200. INSULIN ADMINISTERED PER ORDER. CONTINUE TO MONITOR.
--- NOTE | 2019-01-06 12:27 | NUR ---
Date of Admission: 12/19/18 Date of Activity Therapy Assessment:12/22/18 Activity Goal:1 group per day Initial Goal:Identify at least two positive coping skills in managing hallucination and delusion symptoms. Weekly progress towards goal: On track Behaviors observed: Group participation has increased. Appropriate social skills are increasing. Plan: Increase to 2 groups a day.
[2019-01-06 19:44] VITALS: BP 131/53
--- NOTE | 2019-01-06 22:01 | NUR ---
Pt watching TV in day room upon arrival to shift, no peers in day room. Pt compliant with meds, fsbs and hs snack. Urostomy intact. Smiling eye contact with staff, steady gait.
--- NOTE | 2019-01-07 02:59 | NUR ---
Pt awakened by staff, noted during rounds pt's urostomy leaked. Pt awakened assisted with replacement of urostomy and linens changed. Temp remains 99.9 offered water and pt compllied.
[2019-01-07 07:30] VITALS: BP 111/41
--- NOTE | 2019-01-07 09:45 | NUR ---
ASSUMED CARE AT 0700. PT. UP FOR BREAKFAST. CAME ON TO UNIT WITHOUT A SHIRT AND HAD ON BROWN JEANS THAT WERE TOO TIGHT TO BUTTON. TAXICAB COORDINATOR TOOK PT. TO GET ON CLOTHING. PT. ATTENDED 0900 GROUP. AFTER GROUP PT. WAS CONFUSED AND COULD NOT FIGURE OUT WHAT HE WAS SUPPOSED TO BE DOING OR WHERE HIS ROOM WAS. PT. GUIDED TO HIS ROOM. HE WAS ASKED TO EMPTY HIS UROLOGY BAG AND CLOSE THE VALVE AT THE BASE OF THE BAG. SECLUSIVE HIS ROOM OTHER THAN MEALS AND GROUPS. WAS COMPLIANT WITH MEDICATIONS.
[2019-01-07 10:00] VITALS: BP 111/41
[2019-01-07 20:03] VITALS: BP 133/62
[2019-01-07 20:52] LABS: URINE BILIRUBIN NEGATIVE (Negative); URINE BLOOD 1+ (Negative); URINE CLARITY CLEAR; URINE COLOR YELLOW; URINE GLUCOSE-RANDOM* NEGATIVE (Negative); URINE KETONES NEGATIVE (Negative); URINE LEUKOCYTES-REFLEX 3+ (Negative); URINE NITRITE-REFLEX NEGATIVE (Negative); URINE PROTEIN (DIPSTICK) 1+ (Negative); URINE SPECIFIC GRAVITY 1.015 (1.005-1.035); URINE UROBILINOGEN 0.2 E.U./dl (0.2-1.0)
[2019-01-07 21:02] LABS: BACTERIA-REFLEX >30 Many /HPF (None Seen); CASTS None Seen /LPF (None Seen); CRYSTALS None Seen /LPF (None Seen); SQUAMOUS None Seen /LPF (0-3); URINE RBC 0-2 Rare /HPF (0-2); URINE WBC-REFLEX >25 Many /HPF (0-5)
[2019-01-07 22:35] VITALS: BP 133/62
--- NOTE | 2019-01-08 00:47 | NUR ---
Patient alert and oriented to person only. Patient was on the phone with his daughter Nadir, upon this nurse arrival. Phone number that patient had written on his paper was incorrect. Correct number received from Nadir while she was on the phone. This nurse wrote the correct number on patient's paper. However, patient has been asking to call his daughter Cheyenne to get the correct number for Nadir. This occurred approximately 10 times this evening. Patient was educated and re-orientated several times that he has already received the correct number for Nadir. Tremors noted to bilateral upper extremities. Patient tearful this evening. 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 Delusional behaviors observed. Patient has also had a low grade fever over the last couple days. iron carrier Dr. Mckee notified. Order obtained for UA C&S if indicated now, CBC without diff in AM. Orders noted. Lab notified. Results called to Dr. Mckee, requested to wait for C&S. Patient has been resting quietly in bed this shift. Took medications whole without difficulty.
[2019-01-08 06:00] LABS: HEMATOCRIT 38.9 % (42.0-52.0); MCH 28.8 pg (26.0-34.0); MCHC 33.5 g/dL (28.0-37.0); MCV 85.9 fL (80.0-100.0); RBC 4.53 mil/uL (4.50-6.00); RDW 14.4 % (10.5-14.5); WBC 9.8 thou/uL (4.0-11.0)
[2019-01-08 07:10] VITALS: BP 111/59
[2019-01-08 13:40] VITALS: BP 124/56
--- NOTE | 2019-01-08 13:48 | NUR ---
ASSUMED CARE AT 0700 THIS MORNING. PT. ON UNIT FOR MEALS AND GROUPS. HE IS COMPLIANT WITH TAKING HIS MEDICATIONS. HE DENIES SI/HI/AVH. HE IS REMINDED BY STAFF TO EMPTY HIS UROSTOMY BAG EVERY TWO HOURS. CONTINUES TO BE CONFUSED EVIDENCED BY HIS INABILITY TO DIAL THE TELEPHONE HIMSEF EVEN AFTER GIVEN INSTRUCTION. HE ASKS WHERE HIS ROOM IS AND NEEDS HELP GETTING THERE.
[2019-01-08 20:11] VITALS: BP 157/77
--- NOTE | 2019-01-08 20:47 | NUR ---
Pt had visit with hospitalist regarding swollen r testicle. Antibiotics ordered and initial dose given. Pt cheerful smiling talkative with peers and had hs snack in day room. Pt called his daughter. Pt discussed his dc plan to go and live with his , but that he wants to hire 2 female attendants for home health and would like assistance to arrange this.
--- NOTE | 2019-01-09 03:06 | NUR ---
Staff emptying pts urostomy to assist with it remaining intact.
--- NOTE | 2019-01-09 06:14 | NUR ---
Pt observed attempting to wash his face with a cloth that he had put toothpaste on. Pt was easiliy redirected.
[2019-01-09 07:50] VITALS: BP 113/57
--- NOTE | 2019-01-09 08:56 | NUR ---
[id number]: Report from [facility] shift, care assumed. Ambulatory in halls and to DR independently, gait steady. Appetite good, consumed 100% of meal, feeds self, cont. on ABT for testicular infection, no adverse reactions noted, temp 99.0, color pink, skin w/d. Initial assessment completed, last BM 01/07, prune juice given after educating pt on possible tx options. Cooperative with staff, no anxiety noted.
[2019-01-09 20:12] VITALS: BP 138/67
--- NOTE | 2019-01-10 03:59 | NUR ---
Withdrawn to room at start of shift-refused to come out for hs snack or social activity-when approached for pm assessment was in restroom emptying ostomoy mto-yscvaeenr-ooxahvaws mood/affect. Multiple negative comments re ostomy supplies,length of stay in hospital,daughters etc. "I gave them everything they could ever want (daughters) and they won't let me come stay with them they won't go see their mother unless i tell them too-they say it makes them uncomfortable" I'm done with them-now i don't know where i will go if i ever get to leave here" Conversation mostly focused on current situation and hospital stay-and was relevent,goal directed-at one point did respond to hearing a peer whistling loudly stating to this nurse "You can take that parrot downstairs-i can't take care of it anymore" Denies SI/SH/HI-but does report feeling hopeless re future. Denies complaints of pain/discomfort-complient with assessment/hs cares and expresses appreciation/gratitude for "listening" and care/support provided.
[2019-01-10 08:18] VITALS: BP 103/61
--- NOTE | 2019-01-10 08:41 | NUR ---
0730: Report from [facility] shift, care assumed. Sitting at edge of bed, oriented to name, place and date. Urostomy patent to drain bag, stoma intact and WNL, pt denies pain, cheerful mood, revisits memories of parents and with . Ambulatory to DR independently, gait steady, neatly dressed in clothes. Feeds self, takes meds whole w/o difficulty.
--- NOTE | 2019-01-10 18:45 | NUR ---
RONNIE reached out Jay the estate attorney of the family see if the guardianship has been filed. RONNIE was unsuccessful in reaching the estate attorney. RONNIE left contact information to return phone call.
[2019-01-10 19:30] VITALS: BP 122/76
--- NOTE | 2019-01-11 02:49 | NUR ---
VISIBLE IN DAYROOM WATCHING TV WITH MALE PEER UPON INITIAL OBSERVATION AT 1900-CONVERSES PLEASANTLY WITH PEERS AND STAFF AND NOTED TO HAVE SPONTANEOUS EXPRESSION/SMILING. CONTINUES TO EXPRESS FRUSTRATION OVER LENGTH OF STAY "I DON'T KNOW WHY THE DR AND MY DAUGHTERS WON'T LET ME GO HOME-I CAN TAKE CARE OF MYSELF-I ALWAYS HAVE" DID BECOME TEARFUL WHEN SPEAKING ABOUT NOT BEING ABLE TO SEE -IS ABLE TO CONVERSE ON OTHER TOPICS AND APPEARS LESS ANGRY THEN LAST PM AND DOES ACCEPT FEEDBACK PROVIDED THAT HE HAS BEEN TAKING CARE OF EVERYONE SO LONG IT WOULD BE OK TO FOCUS ON SELF AND SELF CARE. DENIES SI/HI-DENIES PAIN/DISCOMFORT-GAIT STEADY WITHOUT ASSISTIVE DEVICES
[2019-01-11 07:26] VITALS: BP 125/62
[2019-01-11 07:30] VITALS: BP 125/62
--- NOTE | 2019-01-11 08:26 | NUR ---
PT UP THIS AM. PT STATED HE HAS SOME PAIN TO RT LOWER LEG. PT STATED HE WANTED SOMETHING FOR A BM. PT STATED LAST BM WAS HARD AND SMALL. PT ALSO STATED THAT THE UROSTOMY BAG HER ARE CHEAP AND DON'T STICK VERY GOOD. PT STATED HE WOULD LIKE TO SEE HIS .
--- NOTE | 2019-01-11 10:36 | NUR ---
ADM MILK OF MAG 10ML PO FOR COMPLAINTS OF CONSTIPATION.
--- NOTE | 2019-01-11 11:25 | NUR ---
NOTIFIED DR. DIAZ ABOUT BLOOD SUGAR 304. ORDER OBTAINED FOR LUNCH INSULIN DOSE.
--- NOTE | 2019-01-11 19:07 | NUR ---
PT HAS BEEN ATTENDING GROUPS TODAY AND IN A CHEERFUL MOOD. NO ISSUES SEEN.
[2019-01-11 20:21] VITALS: BP 128/44
[2019-01-11 22:09] VITALS: BP 128/44
--- NOTE | 2019-01-12 03:38 | NUR ---
PT OUT FOR A SHORT PERIOD THIS PM. WENT TO ROOM EARLY. TOOK HS MEDS PRESCRIBED. SLEPT WELL THROUGH THE NIGHT TO THIS POINT.
[2019-01-12 07:45] VITALS: BP 113/60
--- NOTE | 2019-01-12 09:06 | NUR ---
ASSUMED PATIENT CARE AT 0700. PATIENT UP IN HIS ROOM, IN BATHROOM; BRUSHING TEETH. DENIES PAIN. ATE 100% OF BREAKFAST.
--- NOTE | 2019-01-12 11:31 | NUR ---
Nutrition followup: pt continues to eat 100% of meals. No new weight to evaluate since 12/25. Request new weight. BG 119-304. Suggested insulin adjustment in care team meeting. Noted pt is now on Insulin glargine in addition to lispro. Follow for improved BG trends. Low risk.
[2019-01-12 19:56] VITALS: BP 127/58
--- NOTE | 2019-01-13 03:42 | NUR ---
ASSUMED CARE @ 19:15. FSBS 235. 15 UNITS OF INSULIN LANTAS GIVEN @ HS. REPORTS THAT HE FEELS LIKE HIMSELF AND FEELS READY TO LEAVE. REPORTS THAT MISSES AND TELLS ME THEIR HISTORY TOGETHER. CARE HOME MEMORY CLEAR. WILL CONTINUE OT MONITOR.
[2019-01-13 07:00] VITALS: BP 114/53
--- NOTE | 2019-01-13 12:38 | NUR ---
ASSUMED PATIENT CARE AT 0700. PATIENT UP IN D.R., FRIENDLY MOOD, SMILING, NO BEHAVIORS. ATE 100% OF BREAKFAST AND LUNCH, COMPLIANT WITH MEDICATIONS. ADMINISTERED INSULIN BREAKFAST AND LUNCH ORDERED. CONTINUE TO MONITOR.
[2019-01-13 20:48] VITALS: BP 125/60
--- NOTE | 2019-01-14 03:59 | NUR ---
INITALLY THIS SHIFT IS OBSERVED TO BE WITHDRAWN TO ROOM- STATES IS FEELING TIRED AND REFUSES TO COME OUT FOR HS SNACK WITH PEERS- LATER DID COME OUT OF ROOM AND TOOK HS MEDICATIONS-VISITED BRIEFLY WITH FEMALE PEER BEFORE GOING TO BED FOR PM. PLEASANT AND TALKATIVE DURING PM ASSESSMENT AND 1;1 WITH THIS NURSE-STATES "THAT TOLD ME TODAY I COULD GO HOME ON TUESDAY-BUT I DON'T THINK HE MEANT HOME REALLY-MAYBE JUST LEAVE HERE TUESDAY THAT WOULD BE GOOD FOR ME. OFFERED MOM PT REPORTING TO DAY SHIFT RN CONSTIPATION -STATING HE WANTS TO WAIT "I WANT THE BIG GUNS-AND NOT AT NIGHT-I THINK ITS CALLED SOMETHING CITRATE"
[2019-01-14 07:25] VITALS: BP 114/66
--- NOTE | 2019-01-14 10:53 | NUR ---
ASSUMED PATIENT CARE AT 0700. PATIENT UP IN HIS ROOM, ATE 75% OF BREAKFAST, COMPLIANT WITH MEDICATIONS. FLAT AFFECT, RELAXED MOOD, NO HALLUCINATIONS PRESENTED TO DATE THIS SHIFT. CORDIAL WITH ONE OF THE NEW FEMALE PATINTS. NO SEXUAL REMARKS TO HER OR OTHER FEMALE PATIENTS TO THIS NURSE'S KNOWLEDGE.
[2019-01-14 20:36] VITALS: BP 117/77
[2019-01-15 02:10] VITALS: BP 117/77
--- NOTE | 2019-01-15 02:42 | NUR ---
PT OUT IN DAY AREA EARLY IN EVENING. DISCOVERED IN FEMALE PTS ROOM, AND ADVISED THAT PTS ARE NOT ALLOWED IN OTHER PTS ROOMS. RESPONDED WELL TO REDIRECTION. TOOK HS MEDS AFTER EVENING SNACKS. SLEPT WELL THROUGH THE NIGHT TO THIS POINT.
--- NOTE | 2019-01-15 09:18 | NUR ---
0715: Report from [facility] shift, care assumed. Ambulatory in [place] to DR, gait steady. Mood calm, cooperative with staff, oriented to name, place and day, forgetful of previous days. Feeds self, takes meds whole w/o difficulty. Attended 0900 recreational group 100%.
[2019-01-15 19:45] VITALS: BP 108/49
--- NOTE | 2019-01-16 05:58 | NUR ---
WITHDRAWN TO ROOM AT START OF SHIFT-WHEN APPROACHED FOR HS MEDICATIONS WAS NOTED TO BE IRRITABLE,MILDLY AGITATED RE LENGTH OF [id number] NEGATIVE COMMENTS ABOUT DAUGHTERS-"THEY ARE FIGHTING LIKE CATS AND DOGS OVER MY HOUSE AND I AM NOT EVEN OUT OF IT YET" "THE CALLED AND HAD MY LISCENCE TAKEN AWAY" PREOCCUPIED WITH THIS AND UNABLE TO SLEEP UNTIL APPROX 2230-AT ONE POINT STATES TO THIS RN "JUST BETWEEN YOU AND ME I AM GOING TO GET OUT OF HERE TOMORROW NO MATTER WHAT"
--- NOTE | 2019-01-16 08:30 | NUR ---
PT UP WALKING AROUND IN THE UNIT. PT STATED HE WOULD LIKE TO HAVE A PLAN AND SEE WHEN HE IS GOING TO GET OUT OF HERE. COORAPERATIVE WITH MEDS AND EATING WELL. LUNGS CLEAR AND ON ROOM AIR.
[2019-01-16 09:00] VITALS: BP 124/77
[2019-01-16 09:18] VITALS: BP 124/77
--- NOTE | 2019-01-16 14:19 | NUR ---
Weekly Recreational Therapy Progress Note Date of Admission: 12/19/18 Date of Activity Therapy Assessment: 12/22/18 Activity Goal: Increase socialization Initial Goal: 2 Group activities/day Weekly progress towards goal: Achieving current goals Group participation level: Full Behaviors observed: Continued baseline. Attending groups. Maintaining appropriate realtionships in milieu. Plan: Patient while continue to participate in 2 recreational therapy groups per day while continuing to maintain and create positive relationships within the milieu.
--- NOTE | 2019-01-16 17:40 | NUR ---
PT HAS HAD GOOD DAY TODAY. PT STATED HE WILL BE LIVING WITH KEISHA IN BASEMENT, HE IS EXCITED ABOUT LIVING WITH HER. PT ATTENDED GROUPS TODAY, NO OTHER CONCERNS.
[2019-01-16 19:51] VITALS: BP 137/66
--- NOTE | 2019-01-17 00:16 | NUR ---
FULL RANGE AFFECT AND SOCIAL/INTERACTIVE IN DAYROOM WITH PEERS AT START OF SHIFT-DURING 1;1 IDENTIFIES BEING IN "GOOD MOOD" D/T DAUGHTER ALLOWING HIM TO COME LIVE WITH HER AFTER DC-DENIES C/O PAIN/DISCOMFORT-MILDLY FLIRTATIOUS WITH STAFF AND FEMALE PEERS BUT REDIRECTS WITH VERBAL QUEING. BLOOD SUGAR 82 AT 2100-GIVEN HS SNACK AND LANTUS INSULIN SCHEDULED-GAIT STEADY WITHOUT ASSISTIVE DEVICES
[2019-01-17 07:40] VITALS: BP 109/57
[2019-01-17 09:00] VITALS: BP 109/57
--- NOTE | 2019-01-17 09:00 | NUR ---
PT IN GOOD SPIRITS TODAY. SLIGHT REDDNESS AROUND UROSTOMY BAG. LAST BAG CHANGE 4 DAYS AGO PER PATIENT. LUNGS CLEAR AND ON ROOM AIR.
--- NOTE | 2019-01-17 15:19 | NUR ---
PT HAS PARTICIPATING WITH GROUPS. STILL PATIENT ABOUT STAYING HERE.
[2019-01-17 19:49] VITALS: BP 141/51
--- NOTE | 2019-01-18 00:58 | NUR ---
PT NOTED TO BE MILDLY FLIRTATIOUS DURING PM INTERACTION/ASSESSMENT/WRAP UP GROUP-EUTHYMIC AFFECT-NO NOTED OR REPORTED AGITATION/PSYCHOSIS/SI/SH-APPROACHED NURSES STATION AT APPROX 2200 REPORTING SOME DIFFICULTY FALLING ASLEEP-BUT STATES DOES NOT WANT TO TAKE ANYTHING FOR IT-WATCHED TV BRIEFLY THEN RETURNED TO ROOM
[2019-01-18 07:27] VITALS: BP 119/61
[2019-01-18 09:25] VITALS: BP 119/61
--- NOTE | 2019-01-18 10:15 | NUR ---
SW checked case net and at this time pt has not been signed an court date for guardianship. RONNIE will look-up case net on next week to see if he has been scheduled.
--- NOTE | 2019-01-18 12:31 | NUR ---
PATIENT HAS BEEN CALM AND AGREEABLE. HAS BEEN OUT ON UNIT FOR MEALS, APPETITE GOOD. CAN BE FLIRTATIOUS AT TIMES BUT EASILY REDIRECTED. NO AGITATION - AGGRESSION OR AUDITYORY OR VISUAL HALLUCINATIONS REPORTED OR OBSERVED. COMPLIANT WITH MEDICATIONS - FELL ASLEEP IN DINING AREA JUST BEFORE GROUP. DID NOT ATTEND - WAS TIRED AND WENT AND LAID DOWN. TOOK 2 HOUR NAP. AWOKEN FOR LUNCH. BLOOD SUGAR 152 BEFORE BREAKFAST AND 160 PRIOR TO LUNCH. SCHEDULED INSULIN GIVEN 12 UNITS EACH TIME. AMBULATORY - MAKES NEEDS KNOWN. DENIED ANY S/I - QUIET TODAY. READ PAPER EARLIER - SMILES SHEEPISHLY AT YOU WHEN QUESTIONED HOW DAY HAS GONE. RESPONSIVE TO QUESTIONS ADDRESSED TO HIM.
[2019-01-18 20:06] VITALS: BP 119/57
--- NOTE | 2019-01-19 00:25 | NUR ---
NURSES NOTE - GERMAIN IS ALERT AND ORIENTED X4, HE HAS SPENT MOST OF THE EVENING ISOLATING IN HIS ROOM WITH LITTLE TO NO CONTACT WITH OTHER PATIENTS ON THE UNIT. HE APPEARS WITH AN APPROPRIATE AFFECT, AND DURING ONE TO ONE HE WOULD SMILE WITH A BRIGHT AFFECT WITH THIS NURSE.
--- NOTE | 2019-01-19 06:18 | NUR ---
LAST NIGHT PATIENT GOT 5 HOURS OF SLEEP.
[2019-01-19 07:00] VITALS: BP 1069/57
--- NOTE | 2019-01-19 11:47 | NUR ---
Nutrition: pt continues on [facility] unit, eats 100% of meals. BG levels showing significant improvement with insulin regimen. Pt without compliants. Low risk.
--- NOTE | 2019-01-19 12:23 | NUR ---
[id number]: Report rec from [facility] shift, care assumed. Ambulatory in [place] to DR, feeds self, consumed 100% of meal. Cooperative with staff and others. Denies pain or discomfort at this time. Discussion with Dr. Murphy regarding dismissal, phone communication completed by Jose Manuel Lipscomb with both dtrs Cheyenne and Roseline, both dtrs agree to accept care in [facility] home. Pt to be dc'd home approx. 1400 today.
[2019-01-19] MEDS ORDERED: ARICEPT 5 MG TAB5 MG PO (13:28)
[2019-01-19] MEDS ORDERED: ATORVASTATIN CA40 MG PO (13:30)
[2019-01-19] MEDS ORDERED: ASPIR 8181 MG PO (13:31)
[2019-01-19] MEDS ORDERED: PRINIVIL5 MG PO (13:31)
[2019-01-19] MEDS ORDERED: NEURONTIN 400400 M1 PO (13:32)
[2019-01-19] MEDS ORDERED: MIRALAX17 GM PO (13:33)
[2019-01-19] MEDS ORDERED: RISPERDAL 1 MG T1 MG PO (13:33)
[2019-01-19] MEDS ORDERED: NOVOLOG100 UNIT/1 SUBQ (13:34)
[2019-01-19] MEDS ORDERED: LANTUS100 UNIT/M SUBQ (13:34)
[2019-01-19 13:52] VITALS: BP 109/57
--- NOTE | 2019-01-19 13:58 | NUR ---
Patient Name: BALTA YADAV Admission Date: 12/19/18 DISCHARGE PLAN: Pt will be discharging home with his daughter Roseline. Care Assessment: Pt was assessed by dr. Murphy, and diagnosed with major, Severe Neurocognitive Disorder. Level II Assessment: Level I Screening was completed. Transportation: Pt will be transported by his grandosn balta Shearer Special Instructions/Notes: Pt will be under the care of his daughter roseline. Pt will have continuance care through [facility] on February 23, 2019. SW spoke with Roseline on the importance of the pt not driving or being left alone. SW mention that the pt would have continue on his medication. SW mention that pt would not be allowed to cook on his own without supervision. Roseline mention that she aware of his health needs, and her father would be in safe place. DISCHARGE TO PLACEMENT: Home Facility: Fax: Address: [address] [place] [id number] Contact Name: Roseline PCP: ROCÍO Psychiatrist: [facility] [place] [address].
--- NOTE | 2019-01-19 15:13 | NUR ---
PT LEFT W/DIGITAL SOLUTION ARCHITECT AND RELATIVE FOR DISCHARGE WITH ALL OF HIS BELONGINGS
--- NOTE | 2019-01-20 07:25 | D ---
[facility] [place] [address] DISCHARGE SUMMARY Name: GERMAIN YADAV Room #: 523B-B [facility] [place] M.R.#: [id number] Admission: 12/19/18 ������������������ Attend Phys: Nino Murphy DO Discharge: 01/19/19 ������������������ Date of : 34 Report #: [id number] THIS REPORT FOR: //name// CC: Nino GLASS unknown DATE OF SERVICE: 01/19/2019 Attending Psychiatrist: Nino Murphy D.O. SYNTHETIC CLOTH BINDING CUTTER AT TIME OF DISCHARGE: Nathaniel Funes M.D. DISCHARGE DIAGNOSES: Major neurocognitive disorder, likely due to Alzheimer's disease, moderate degree. Medical comorbidities on the day of discharge are as follows: Type 2 diabetes mellitus, epididymitis successfully treated with antibiotics, status post an E. coli UTI, hypertension, chronic past issues, including a history of bladder cancer, hyperlipidemia, and a history of coronary artery disease. DISCHARGE MEDICATIONS: Include, donepezil 5 mg p.o. at bedtime, atorvastatin 40 mg p.o. daily, lisinopril 5 mg p.o. daily, aspirin 81 mg p.o. daily, gabapentin 400 mg twice per day for mood stabilization, lisinopril for hypertension, aspirin for cardioprotection, pravastatin for hyperlipidemia, and donepezil as kind of an enhancer, risperidone 1 mg p.o. b.i.d. for psychosis, MiraLax 17 grams p.o. daily dissolved in water, insulin glargine 15 units subQ at bedtime, insulin aspart 12 units subcutaneous a.c. at 30 minutes. REASON FOR ADMISSION: Referred by primary care physician for self-care failure, psychosis, disruptive behavior and mood in the nursing facility. HOSPITAL COURSE: The patient was admitted to the Geriatric Psychiatry Unit. The patient received neuropsych testing. Major neurocognitive disorder was confirmed, this was by Dr. Nielson. Gabapentin was started as a mood stabilizer. This was increased to 400 mg p.o. b.i.d. Also due to some delusional behavior, risperidone was started, titrated to 1 mg p.o. b.i.d. The patient improved quite a bit initially. He was focused on getting out of the hospital with his . Unfortunately, his has dementia and I believe was placed on hospice status during this admission. His daughter, Viry, is pursuing guardianship with the power of patent prosecution attorney Mr. Keith. I was expecting actually for the patient stay longer until the guardianship hearing, however, the daughter Viry and daughter Corey decided to have the patient stay with them. I believe he will be staying with Corey now and then Cheyenne is doing renovations in her home. They are aware that the patient requires 24/ care supervision. PHYSICAL EXAMINATION: VITAL SIGNS: On the day of discharge are as follows: Temperature 36.8, pulse 74, respirations 18, BP 109/57. [address] [address] DISCHARGE SUMMARY Name: GERMAIN YADAV Room #: 523B-B [facility] [place] M.R.#: [id number] Admission: 12/19/18 ������������������ Attend Phys: Nino Murphy, DO Discharge: 01/19/19 ������������������ Date of : 34 Report #: [id number] MUSCULOSKELETAL: Normal gait and station. MENTAL STATUS: A well-developed, well-nourished male appearing stated age, wearing glasses, dressed fairly. Attention is limited. Concentration is limited. Speech is normal in rate. Thought process is linear and goal directed. Thought content is focused on two of his daughters. No psychomotor agitation. Denied SI, HI. Denied homicidal intent or plan. Memory noted to be impaired. Insight limited. Judgment limited. Fund of knowledge is below average. Prognosis for this patient is guarded given that he has dementia and some although limited family support. ��������������������������������������������� <ELECTRONICALLY SIGNED> ���������������������������������������� By: Nino Murphy DO ��������������������������������������������� 01/20/19 0725 [id number] Nino Murphy DO /nt
== END 2019-01-19 14:20 | disposition home or self-care (01) | DRG 57 ==
LOC: ER 09:52 → EROBS 11:51 → SBH 12:19
PROVIDERS: Internal Medicine; Nurse Practitioner Family; ADMIT Psychiatry & Neurology Psychiatry
DX: G30.9 Alzheimer's disease, unspecified (principal); N39.0 Urinary tract infection, site not specified; F02.81 Dementia in other diseases classified elsewhere, unspecified severity, with behavioral disturbance; F01.51 Vascular dementia, unspecified severity, with behavioral disturbance; I10 Essential (primary) hypertension; E78.00 Pure hypercholesterolemia, unspecified; E11.65 Type 2 diabetes mellitus with hyperglycemia; I25.10 Atherosclerotic heart disease of native coronary artery without angina pectoris; E78.5 Hyperlipidemia, unspecified; F29 Unspecified psychosis not due to a substance or known physiological condition; N45.1 Epididymitis; Z95.1 Presence of aortocoronary bypass graft; Z79.4 Long term (current) use of insulin; Z85.51 Personal history of malignant neoplasm of bladder; Z79.82 Long term (current) use of aspirin; Z79.899 Other long term (current) drug therapy
CPT/HCPCS: 10880

== ENCOUNTER 2019-02-03 17:01 | Inpatient (IN) | payer OTHER ==
[~2019-02-03] VITALS: Ht 180.3 cm; Wt 74.3 kg
--- NOTE | ~2019-02-03 | H ---
[facility] [place] [address] HISTORY AND PHYSICAL Name: GERMAIN YADAV Room #: 419-P ADM IN M.R.#: [id number] Admission: 02/03/19 ������������������ Attend Phys: Kvng Funes MD Discharge: ������������������ Date of : 32 Report #: [id number] THIS REPORT FOR: //name// CC: QUAN physician/PCP Kvng Funes DATE OF SERVICE: 02/04/2019 CHIEF COMPLAINT: Behavior change with confusion. HISTORY OF PRESENT ILLNESS: The patient has a known history of dementia and was admitted on 12/19/2018 to the geriatric psychiatric unit and discharged a month later. He was admitted for his hallucinations and confusion. He was given the diagnosis of Alzheimer's disease with behavior problems, medication was adjusted and he was discharged back to family home. At home, he has been able to walk independently around the house and do his activities of daily living; however, last week, he has become increasingly confused and unable to perform these activities of daily living. For this reason, he was brought to the Emergency Room. In the Emergency Room, he was felt to have an acute urinary tract infection at the root of his mental status changes. He was also felt to have toxic encephalopathy. Initially, he was readily ambulatory, but then not so much so. He was also volume depleted and dehydrated. Admission for intravenous antibiotics and intravenous IV fluids was indicated. PAST MEDICAL HISTORY: Pertinent to his urinary tract infection is that he had a cystectomy for bladder cancer and has a functioning urostomy, increasing the risk for urinary tract infections. While in the hospital last month, he also had epididymitis that was successfully treated. He has hypertension, diabetes, treated with insulin and coronary artery bypass surgery as well as elevated lipids. HOME MEDICATION LIST: Aspirin 81 mg daily, atorvastatin 40 mg daily, donepezil 5 mg daily, gabapentin 400 mg twice daily, NovoLog 12 units before meals, Lantus 15 units at bedtime, lisinopril 5 mg daily for blood pressure, propylene glycol 17 g daily and risperidone 1 mg twice daily. ALLERGIES: None known. SOCIAL HISTORY: He is currently living in his daughter's home. He does not drink nor smoke. His has progressive Alzheimer's disease and is currently living in a facility on hospice. REVIEW OF SYSTEMS: Other than the HPI, the patient does say that he is a little [address] [address] HISTORY AND PHYSICAL Name: GERMAIN YADAV EITAN Room #: 419-P [facility] IN ..#: [id number] Admission: 02/03/19 ������������������ Attend Phys: Kvng Funes MD Discharge: ������������������ Date of : 32 Report #: [id number] bit tender in his scrotum. The nursing staff report that he slept most of the time since admitted last night, and didn't eat much this morning. PHYSICAL EXAMINATION: GENERAL: The patient is sitting in his chair in his hospital room. "How do I make sure my knows I am here." HEENT: Unremarkable except that his oropharynx is dry. NECK: Negative. LUNGS: Clear. CARDIOVASCULAR: Heart tones are normal and the rhythm is regular. There is no CVA tenderness. ABDOMEN: Soft, nontender, without gross hepatosplenomegaly. A healthy appearing urostomy stoma is covered by a clear urostomy bag with relatively clear-looking urine in the bag. There is no abdominal tenderness. GENITOURINARY: Exam of the scrotum and penis showed minimal amount of irritation of the scrotal sac. He does report some generalized tenderness in the scrotum, but there are no specific areas of localized tenderness. EXTREMITIES: There is no clubbing, cyanosis or edema. NEUROLOGIC: Screening neurological examination shows no focal neurological deficits. He was able to ambulate briefly in the Emergency Room last night and then, was not able to ambulate. I did not attempt to ambulate him on my exam. LABORATORY DATA: His urinalysis is grossly abnormal, as would be expected for urostomy, with nitrites, leukocytes and wbc's. His BUN is slightly elevated at 22 compared with the baseline of 18. His fingerstick blood sugars varied between 105 and 175. His alkaline phosphatase has jumped from 118 to 208. His albumin was 3.1 on admission and dropped overnight to 2.8 with rehydration. His absolute lymphocyte count is 1449. Additional note, he has been sleeping most of the day here in his hospital room. He has not been agitated today. His family visited and noted that he was more sleepy and less active than he usually is at home. ASSESSMENT: 1. Possible rinary tract infection. Urostomy bag urine is always abnormal. 2. Toxic encephalopathy from the urinary tract infection or other process. 3. Dehydrated on exam and lab. 4. Alzheimer disease with behavior disturbances -- the disturbance seems to still be in control on his medication. 5. Type 2 diabetes, on insulin. 6. Stable coronary artery disease. 7. Generalized weakness. 8. Other medical problems as in the history and physical. PLAN: It is important to continue intravenous fluids to keep the urine flow generous to allow the infection to clear. Intravenous antibiotics. [facility] [address] [place] [address] HISTORY AND PHYSICAL Name: GERMAIN YADAV Room #: 419-P ADM IN José Miguel.#: [id number] Admission: 02/03/19 ������������������ Attend Phys: Kvng Funes MD Discharge: ������������������ Date of : 32 Report #: [id number] clinical monitoring to besure another cause of the confusion and dehayration appear. SSI insulin until he re-establishes his ususal food intake. Physical therapy and occupational therapy. His personal physician, Dr. Kvng Funes to address further his nonspecific minimal scrotal tenderness and compare to his episode of epididymitis several weeks ago. ��������������������������������������������� ���������������������������������������� By: ��������������������������������������������� 1814 1849 Piter Tai MD /nt
[~2019-02-03 17:01] MED LIST changes: +ARICEPT 5 MG TAB5 MG PO; +ASPIR 8181 MG PO; +ATORVASTATIN CA40 MG PO; +HUMULIN R100 UNIT/M SUBQ; +LANTUS100 UNIT/M SUBQ; +MIRALAX17 GM PO; +NEURONTIN 400400 M1 PO; +NOVOLOG100 UNIT/1 SUBQ; +PRINIVIL5 MG PO; +RISPERDAL 1 MG T1 MG PO
[2019-02-03 17:02] VITALS: BP 110/54
[2019-02-03 17:22] LABS: URINE BILIRUBIN NEGATIVE (Negative); URINE BLOOD NEGATIVE (Negative); URINE CLARITY SL CLOUDY; URINE COLOR YELLOW; URINE GLUCOSE-RANDOM* NEGATIVE (Negative); URINE KETONES NEGATIVE (Negative); URINE LEUKOCYTES 2+ (Negative); URINE NITRITE POSITIVE (Negative); URINE PROTEIN (DIPSTICK) TRACE (Negative); URINE UROBILINOGEN 0.2 E.U./dl (0.2-1.0)
[2019-02-03 17:22] LABS: ABSOLUTE NEUTROPHILS 4.7 thou/uL (1.4-8.2); BASOPHILS 0.9 % (0.0-2.0); EOSINOPHILS 1.8 % (0.0-3.0); HEMATOCRIT 39.5 % (42.0-52.0); HEMOGLOBIN 13.2 gm/dL (14.0-18.0); LYMPHOCYTES 20.3 % (24.0-44.0); MCH 28.7 pg (26.0-34.0); MCHC 33.5 g/dL (28.0-37.0); MCV 85.7 fL (80.0-100.0); MONOCYTES 9.5 % (1.0-8.0); PLATELET COUNT 285 thou/uL (150-400); POLYS 67.5 % (36.0-66.0); RBC 4.61 mil/uL (4.50-6.00); RDW 14.6 % (10.5-14.5); WBC 6.9 thou/uL (4.0-11.0)
[2019-02-03 17:27] LABS: CALCIUM 9.2 mg/dL (8.5-10.1); CREATININE 1.2 mg/dL (0.7-1.3); POTASSIUM 4.3 mmol/L (3.5-5.1)
[2019-02-03 17:30] LABS: AMORPHOUS URATES Moderate /LPF (None Seen); BACTERIA >30 Many /HPF (None Seen); CASTS None Seen /LPF (None Seen); SQUAMOUS 4-10 Moderate /LPF (0-3); TRANSITIONAL EPITHEL CELL 4-10 Moderate /LPF (None Seen)
[2019-02-03 17:33] LABS: ALBUMIN 3.1 g/dL (3.4-5.0); TOTAL BILIRUBIN 0.5 mg/dL (<0.1-1.0); TOTAL PROTEIN 6.7 g/dL (6.4-8.2)
--- NOTE | 2019-02-03 18:22 | NUR ---
PT POSITIVE FOR UTI, IV ABT ORDERED
[2019-02-03 19:42] VITALS: BP 118/49
--- NOTE | 2019-02-03 19:42 | NUR ---
ED HAND OFF TOOL PRINTED TO 4E
[2019-02-03] MEDS ORDERED: KEFLEX500 M1 PO (20:47)
[2019-02-03 22:38] VITALS: BP 111/69
--- NOTE | 2019-02-03 22:38 | NUR ---
HAND OFF TOOL SENT TO [facility]
[2019-02-03 23:34] VITALS: BP 159/45
--- NOTE | 2019-02-04 04:09 | NUR ---
PATIENT ARRIVED VIA WHEELCHAIR WITH ONE ED PERSONNEL AT 2334. ALERT TO NAME AND COOPERATIVE WITH DIRECTIONS FROM CHAIR TO BED. UNABLE TO ANSWER ADMISSION QUESTIONS AND FAMILY NOT PRESENT. IVF INFUSING, HOWEVER, PATIENT HAS TAKEN OUT HIS IV X2. RESTLESS AND ATTEMPTED TO GET OOB X3 AT TIME OF NOTE. BED ALARM IS ON. THIS NURSE SPOKE WITH DR. PFEIFFER AND MEDICATION ORDERS WERE RESUMED. WILL MONITOR.
[2019-02-04 06:00] VITALS: BP 151/72
[2019-02-04 06:21] LABS: ABSOLUTE NEUTROPHILS 4.6 thou/uL (1.4-8.2); BASOPHILS 0.6 % (0.0-2.0); EOSINOPHILS 2.6 % (0.0-3.0); HEMOGLOBIN 13.4 gm/dL (14.0-18.0); LYMPHOCYTES 21.2 % (24.0-44.0); MCH 28.7 pg (26.0-34.0); MCHC 33.6 g/dL (28.0-37.0); MCV 85.6 fL (80.0-100.0); MONOCYTES 9.7 % (1.0-8.0); PLATELET COUNT 264 thou/uL (150-400); POLYS 65.9 % (36.0-66.0); RBC 4.67 mil/uL (4.50-6.00); RDW 14.3 % (10.5-14.5); WBC 6.9 thou/uL (4.0-11.0)
[2019-02-04 06:35] LABS: ALBUMIN 2.8 g/dL (3.4-5.0); CALCIUM 8.9 mg/dL (8.5-10.1); POTASSIUM 3.8 mmol/L (3.5-5.1); TOTAL BILIRUBIN 0.5 mg/dL (<0.1-1.0); TOTAL PROTEIN 6.2 g/dL (6.4-8.2)
[2019-02-04 07:41] VITALS: BP 135/52
[2019-02-04 19:06] VITALS: BP 120/50
--- NOTE | 2019-02-04 19:43 | NUR ---
ASSUMED CARE OF PT AT 0700. ASSESSMENT CHARTED. ALERT TO SELF ONLY, PT CONFUSED AND STATES HE IS IN HIS BEDROOM AT HOME. REORIENTED NEEDED. PT IMPULSIVE, HIGH FALL RISK PRECAUTIONS IN PLACE. DAUGHTER VISITED AT BEDSIDE THIS AFTERNOON. CONCERNED ABOUT PT NOT HAVING A CT SCAN, DR. PFEIFFER NOTIFIED. NO CT NECESSARY AT THIS TIME. ACHS, AM INSULIN DOSE NOT INDICATED PRIOR TO BREAKFAST. DR. PFEIFFER CHANGED TO SLIDING SCALE INSULIN. UROSTOMY IN PLACE, LEAKING NOTED. NEW BAG APPLIED AND CARE GIVEN. PT IN STABLE CONDITION AT END OF SHIFT.
--- NOTE | 2019-02-05 03:09 | NUR ---
PT IMPULSIVE,NEEDS CONSTANT REMINDER TO CALL FOR ASSISTANCE BEFORE GETTING OOB.UROSTOMY IN PLACE WITH ADEQUATE OUTPUT,EMPTIED NEEDED.ASSESSMENT COMPLETED.PT DENIED PAIN,N/V.PT RESTING ON HIS BED AT THIS TIME.FALL PRECAUTIONS IN PLACE,CALL LIGHT WITHIN REACH.
[2019-02-05 03:44] VITALS: BP 117/60
[2019-02-05 06:04] LABS: ABSOLUTE NEUTROPHILS 3.6 thou/uL (1.4-8.2); BASOPHILS 0.6 % (0.0-2.0); EOSINOPHILS 2.7 % (0.0-3.0); HEMATOCRIT 38.6 % (42.0-52.0); HEMOGLOBIN 12.8 gm/dL (14.0-18.0); LYMPHOCYTES 20.5 % (24.0-44.0); MCH 28.7 pg (26.0-34.0); MCHC 33.2 g/dL (28.0-37.0); MCV 86.5 fL (80.0-100.0); PLATELET COUNT 251 thou/uL (150-400); POLYS 66.2 % (36.0-66.0); RBC 4.46 mil/uL (4.50-6.00); RDW 14.4 % (10.5-14.5); WBC 5.5 thou/uL (4.0-11.0)
[2019-02-05 06:36] LABS: ALBUMIN 2.8 g/dL (3.4-5.0); CALCIUM 8.9 mg/dL (8.5-10.1); CREATININE 1.1 mg/dL (0.7-1.3); POTASSIUM 4.2 mmol/L (3.5-5.1); TOTAL BILIRUBIN 0.4 mg/dL (<0.1-1.0); TOTAL PROTEIN 6.1 g/dL (6.4-8.2)
[2019-02-05 07:11] VITALS: BP 116/55
--- NOTE | 2019-02-05 08:40 | EKG ---
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: MARK : 1930 Requested By: Rajni Gee Order Number: [id number] MD: Aldo Suarez Measurements Intervals [place] Rate: 71 P: 54 SD: 168 QRS: -64 QRSD: 105 T: 68 QT: 414 QTc: 450 Interpretive Statements Sinus rhythm Left anterior fascicular block Abnormal R-wave progression, late transition Compared to ECG 12/24/2018 14:32:21 Left anterior fascicular block now present Ventricular premature complex(es) no longer present Left-axis deviation no longer present Poor R-wave progression no longer present Electronically Signed On 02-05-2019 8:40:18 CDT by Aldo Suarez [email or web address] ��������������������������������������������� <ELECTRONICALLY SIGNED> ���������������������������������������� By: Aldo Suarez MD ��������������������������������������������� 02/05/19 0840 1733 1733 Aldo Suarez MD /EPI
--- NOTE | 2019-02-05 12:49 | NUR ---
INITIAL ASSESSMENT: Pt evaluated for d/c planning needs. Reviewed chart and spoke with pt, daughter Cheyenne and Della. Pt was hospitalized at [facility] in January and returned home with daughter Roseline. Cheyenne said that they have petitioned the court for guardianship, but do not have a court date yet. Cheyenne and her said they are having renovations made at their home to accommodate pt moving in with them. Dtr said that pt is weak and she wants him to go to SNF prior to returning home. Dtr and pt were given choices, and want pt to go to [facility] on d/c from hospital. Asked case planner to fax referral to [place]. Spouse is currently living [facility]ator termite care at [facility] and family does not want pt to be placed there. Will remain available to assist as needed.
[2019-02-05 14:17] VITALS: BP 100/44
--- NOTE | 2019-02-05 15:15 | NUR ---
FAXED CLINICAL UPDATE TO [facility] SPOKE WITH MARGARET AND SHE RECEIVED UPDATE INFORMED HER THAT PT DISCHARGING AFTER DIALYSIS TODAY.
--- NOTE | 2019-02-05 16:01 | NUR ---
Assessment completed.vss.Pt in bed alert and oriented x2.Assisted with tray setup at all meals.Good appetite noted.Family here to visit,updates given. Bed alarm in use at all times.No agitation or restlessness noted.Will continue to monitor.
--- NOTE | 2019-02-05 16:33 | NUR ---
FAXED REFERRAL TO [facility] SPOKE WITH ZAHRA IN ADM SHE RECEIVED REFERRAL AND WILL NEED PT/OT NOTES SOON THEY ARE AVAILABLE. DCP TO FOLLOW.
[2019-02-05 19:52] VITALS: BP 110/54
--- NOTE | 2019-02-06 00:30 | NUR ---
ASSUMED PT CARE 1899. PT ALERT AND ORIENTED X3, CONFUSED. REASSESSMENT COMPLETE. VSS. PT DENIES PAIN, DENIES N/V. UROSTOMY BAG CHNAGED. PT CALL LIGHT WITHIN REACH. WILL CONTINUE POC UNTIL EOS.
[2019-02-06 04:08] VITALS: BP 153/63
[2019-02-06 07:30] VITALS: BP 153/66
[2019-02-06 10:46] LABS: HEMATOCRIT 41.1 % (42.0-52.0); HEMOGLOBIN 13.7 gm/dL (14.0-18.0); MCH 28.9 pg (26.0-34.0); MCHC 33.3 g/dL (28.0-37.0); MCV 86.8 fL (80.0-100.0); RBC 4.74 mil/uL (4.50-6.00); RDW 14.6 % (10.5-14.5); WBC 4.6 thou/uL (4.0-11.0)
[2019-02-06 11:14] LABS: CREATININE 1.1 mg/dL (0.7-1.3); POTASSIUM 4.3 mmol/L (3.5-5.1); TOTAL BILIRUBIN 0.4 mg/dL (<0.1-1.0); TOTAL PROTEIN 6.6 g/dL (6.4-8.2)
--- NOTE | 2019-02-06 13:46 | NUR ---
ASSUMED CARE AT 0700, SHIFT ASSESSMENT DONE, MEDS GIVEN, VSS. DENIES PAIN, NAUSEA, VOMITING. RECEIVING IV FLUIDS. UROSTOMY BAG LEAKING, FAMILY BROUGHT SUPPLY FOR HOME. BAG CHANGED, WORKING BETTER NOW. IMPULSIVE AT TIMES, WILL CONTINUE TO ASSESS AND ASSIST WITH ADLs NEEDED.
[2019-02-06 16:00] VITALS: BP 126/55
[2019-02-06 20:41] VITALS: BP 144/76
--- NOTE | 2019-02-07 02:13 | NUR ---
PT WAS ALITTLE CONFUSED AT THE START OF THE SHIFT-IMPULSIVE AND TRYING TO MESS WITH IV.PT WAS PLEASANT WITH REDIRECTION AND HAS BEEN QUIETLY RESTING REST OF THE NIGHT. UROSTOMY WITH LIGHT YELLOW URINE.PT DENIES PAIN.WILL CONTINUE WITH POC TILL EOS.
[2019-02-07 03:20] VITALS: BP 105/63
[2019-02-07 07:17] VITALS: BP 144/54
--- NOTE | 2019-02-07 13:24 | NUR ---
Following for d/c planning needs. Called [facility]. Their regional sales coordinator is not at work today. Asked to have DON call back re: admission status.
[2019-02-07 17:33] VITALS: BP 145/57
[2019-02-07 20:23] VITALS: BP 123/57
[2019-02-07 22:35] VITALS: BP 111/50
[2019-02-08 05:40] VITALS: BP 119/60
--- NOTE | 2019-02-08 06:33 | NUR ---
ASSUMED CARE AT 1900. PT SLEEPING. DIFFICULT TO WAKE UP. VSS AND BREATHING NORMAL. REFUSED TO TAKE EVENING MEDS DOCUMENTED NOT GIVEN. UROSTOMY BAG EMPTIED AND CHANGED. REPOSITIONED PT IN BED AND PT SLEPT ALL THROUGH THE NIGHT. WOKE UP THIS MORNING @0500 awake and confused. fluids infusing and beds in lower position, fall prec in place. will continue to monitor
[2019-02-08 09:12] VITALS: BP 129/66
[2019-02-08] MEDS ORDERED: ARICEPT10 M1 PO (14:55)
[2019-02-08] MEDS ORDERED: ENOXAPARIN30 MG/0.1 SUBQ (14:56)
[2019-02-08] MEDS ORDERED: NAMENDA 5 MG TAB5 M1 PO (14:58)
--- NOTE | 2019-02-08 16:25 | NUR ---
PT ASSESSED AT START OF SHIFT. REMAINS CONFUSED BUT COOPERATIVE W/ CARE. SLEPT SEVERAL HOURS IN CHAIR AFTER AM RESPERIDAL. FEEDING SELF AND EATING AND DRINKING FAIRLY WELL. PT WILL DC TO [facility] WHEN ABLE.
--- NOTE | 2019-02-08 16:36 | NUR ---
Following for d/c planning needs. Received order from physician for d/c. Spoke with fitness coordinator at [facility] and faxed orders. She called back about 1600 and said it was too late in the day, and they are not able to accept today. They will accept on Tuesday.
[2019-02-08 18:07] VITALS: BP 144/71
[2019-02-08 22:30] VITALS: BP 131/72
[2019-02-08 23:45] LABS: ABSOLUTE NEUTROPHILS 15.2 thou/uL (1.4-8.2); BASOPHILS 0.3 % (0.0-2.0); HEMATOCRIT 34.9 % (42.0-52.0); LYMPHOCYTES 3.1 % (24.0-44.0); MCH 28.8 pg (26.0-34.0); MCHC 33.7 g/dL (28.0-37.0); MCV 85.5 fL (80.0-100.0); MONOCYTES 5.1 % (1.0-8.0); PLATELET COUNT 172 thou/uL (150-400); POLYS 91.5 % (36.0-66.0); RBC 4.08 mil/uL (4.50-6.00); RDW 14.4 % (10.5-14.5); WBC 16.6 thou/uL (4.0-11.0)
[2019-02-08 23:46] LABS: HEMOGLOBIN 11.7 gm/dL (14.0-18.0)
[2019-02-08 23:52] LABS: CALCIUM 8.3 mg/dL (8.5-10.1); CREATININE 1.2 mg/dL (0.7-1.3); POTASSIUM 3.9 mmol/L (3.5-5.1)
[2019-02-08 23:58] LABS: ALBUMIN 2.5 g/dL (3.4-5.0); DIRECT BILIRUBIN 0.2 mg/dL (<0.1-0.3); TOTAL BILIRUBIN 0.6 mg/dL (<0.1-1.0); TOTAL PROTEIN 5.4 g/dL (6.4-8.2)
[2019-02-09 00:29] LABS: BE(vivo) -0.5 mmol/L (-2 to +3); HCO3 23.7 mmol/L (22.0-26.0); PCO2 37.3 mmHg (35.0-45.0); PO2 80.1 mmHg (80.0-100.0); pH 7.421 (7.360-7.450); sO2 96.1 % (92.0-98.0)
--- NOTE | 2019-02-09 02:44 | NUR ---
ASSUMED PT CARE 1899. PT ALERT AND ORIENTED TO SELF. REASSESSMENT COMPLETE. ELEVATED TEMPERATURE, PHYSICIAN CONTACTED. ALL OTHER VSS. IV DRESSING C/D/I, NO SIGNS OF INFILTRATION. PT WEAK AND X2 ASSIST TO BED FROM CHAIR. UROSTOMY IN PLACE. CALL LIGHT WITHIN REACH. WILL OCNTINUE POC UNTIL EOS.
[2019-02-09 03:20] VITALS: BP 131/81
[2019-02-09 07:10] VITALS: BP 140/56
--- NOTE | 2019-02-09 09:11 | NUR ---
ASSESMENT COMPLETED. VSS. PT ANGRY/IMPULSIVE/CONFUSED THIS AM. REFUSES TO EAT BREAKFAST. STATED HE WANTS TO "GET OUT OF HERE AND GO TO THE HOSPITAL". REDIRECTED/REORIENTED PATIENT BUT PT INSISTS THAT THIS IS NOT THE HOSPITAL. PT ABLE TO TAKE MEDS WITH [facility] AP[facility] SAUCE. UROSTOMY LEAKING- ORDERED OSTOMY CART SO APPLIANCE CAN BE CHANGED- WAITING FOR SUPPLY. NOTED RED SPOT ON LEFT BUTTOCK. REPOSITIONED PATIENT- WILL PHOTOGRAPH ONCE PATIENT AGREEABLE WITH CARES. BED ALARM ON. WILL CONT. TO MONITOR.
--- NOTE | 2019-02-09 12:30 | NUR ---
Following for d/c planning needs. Pt to be d/c to [facility] on Tuesday. Spoke with admissions liaison Alana and she said she will be at the facility on Tuesday and will be able to make transportation arrangements for pt. RN will need to call Ana and speak with Alana to arrange transport and fax orders to facility. [facility] [phone]; fax [phone]
--- NOTE | 2019-02-09 14:45 | NUR ---
UROSTOMY CAHNGED TWICE THIS SHIFT.
[2019-02-09 16:00] VITALS: BP 113/56
[2019-02-09 16:15] VITALS: BP 100/70
--- NOTE | 2019-02-09 17:07 | NUR ---
FAXED CLINICAL UPDATE TO [facility] SPOKE WITH ZAHRA IN ADM SHE RECEIVED UPDCATE. DCP TO FOLLOW.
[2019-02-09 20:11] VITALS: BP 137/73
--- NOTE | 2019-02-10 01:42 | NUR ---
ASSUMED PT CARE 1899. PT ALERT TO SELF. REASSESSMENT COMPLETE. VSS. IV DRESSING C/D/I, NO SIGNS OF INFILTRATION. PT DENIES PAIN, DENIES N/V. CALL LIGHT AND PERSONAL BELONINGS WITHIN REACH. WILL CONTINUE POC UNTIL EOS.
[2019-02-10 04:39] LABS: HEMATOCRIT 37.3 % (42.0-52.0); HEMOGLOBIN 12.6 gm/dL (14.0-18.0); MCH 28.8 pg (26.0-34.0); MCHC 33.7 g/dL (28.0-37.0); MCV 85.6 fL (80.0-100.0); RBC 4.35 mil/uL (4.50-6.00); RDW 13.8 % (10.5-14.5)
[2019-02-10 05:02] LABS: CALCIUM 8.3 mg/dL (8.5-10.1); CREATININE 1.2 mg/dL (0.7-1.3); POTASSIUM 4.1 mmol/L (3.5-5.1)
[2019-02-10 06:03] VITALS: BP 128/50
--- NOTE | 2019-02-10 08:12 | HC ---
[facility] [place] [address] CONSULTATION Name: GERMAIN YADAV Room #: 419-P ADM IN M.R.#: [id number] Admission: 02/03/19 ������������������ Attend Phys: Knvg Funes MD Discharge: ������������������ Date of : 32 Report #: [id number] THIS REPORT FOR: //name// CC: FAM physician/PCP Kvng Funes DATE OF SERVICE: 02/09/2019 ATTENDING PHYSICIAN: Dr. Kvng Funes. REASON FOR CONSULTATION: Fever. HISTORY OF PRESENT ILLNESS: An 88-year-old white man admitted with altered mental status and diagnosed to have E. coli UTI, treated with Zosyn and on the date of discharge, the patient developed temperature 102. Also, he managed to put some batteries in his mouth. KUB and chest x-ray failed to reveal foreign body. On account of fever, vancomycin added to his regimen. This morning, the patient is alert, comfortable, voices no complaint. The patient's nurse report, the patient was a little angry earlier today and confused and requested to be transferred to [facility]. The patient now complaining of some pain in the testicles which by the way I examined and I detect no significant abnormalities. PAST MEDICAL HISTORY: Diabetes mellitus, hypertension, status post coronary artery bypass grafting, dementia, possible Alzheimer's disease, dehydration, recent epididymitis, history of bladder cancer, and previous cystostomy. DRUG ALLERGIES: None listed. MEDICATIONS: The patient is on treatment with vancomycin 1000 mg IV every 12 hours, Zosyn 3.37 grams IV every 8 hours, D5 half normal saline at 1000 mL every 8 hours since yesterday, memantine 5 mg p.o. daily, donepezil 10 mg at bedtime, insulin lispro per sliding scale, p.r.n. glucose and glucagon, polyethylene glycol 17 grams p.o. daily, risperidone 1 mg p.o. b.i.d., gabapentin 400 mg p.o. b.i.d., aspirin 81 mg p.o. daily, lisinopril 5 mg p.o. daily, atorvastatin 400 mg daily. SOCIAL HISTORY: See H and P, old records. FAMILY HISTORY: See H and P, old records. REVIEW OF SYSTEMS: Besides the testicular pain, he voices no complaints. At present rather pleasant and reminiscent about his medical care by Dr. Aldo Funes and currently Dr. Kvng Funes. PHYSICAL EXAMINATION: [address] [address] CONSULTATION Name: GERMAIN YADAV Room #: 419-P [facility] IN ..#: [id number] Admission: 02/03/19 ������������������ Attend Phys: Kvng Funes MD Discharge: ������������������ Date of : 32 Report #: [id number] GENERAL: A well-developed, debilitated, elderly white man. VITAL SIGNS: Temperature maximum 102.3 at 1807 p.m. yesterday, currently afebrile, pulse 87, respirations 20, BP 131/81. O2 saturation 94% on room air. HEENMT: Head normocephalic, atraumatic. Pupils reactive. Mouth revealed upper and lower plates. NECK: Supple, no thyromegaly. LUNGS: Few rhonchi here and there. HEART: S1, S2. No gallop or murmur. ABDOMEN: Soft, no masses or megaly. GENITALIA: Revealed no masses and no obvious epididymitis. EXTREMITIES: No clubbing, cyanosis. NEUROLOGIC: Grossly within normal limits. LABORATORY DATA: Sodium 137, potassium 3.9, BUN 27, creatinine 1.2, glucose 130, alkaline phosphatase 152, was elevated to 208 on admission, albumin 2.5 g/dL. White blood cell count 16,600, hemoglobin 11.7 g/dL and platelets 172,000. The white blood cell count differential revealed 91% segmented neutrophils. MRSA screen by PCR is pending. ABGs revealed pH 7.42, pCO2 of 37, pO2 of 80, bicarbonate 23.7, lactate normal. These set of gases is on room air. Repeat blood cultures were obtained at 1:45 and 1:50 a.m. today and obviously they remain negative. MICROBIOLOGY DATA: A culture done on admission reveal an E. coli resistant to multiple antibiotics, sensitive to tetracycline, nitrofurantoin and obviously to Zosyn. The only available oral antibiotic I suspect will be possibly minocycline or nitrofurantoin. I preferred minocycline. RADIOLOGY EVALUATION: A chest x-ray reveals status post CABG, chronic interstitial changes. Atelectasis stasis. No foreign body. KUB 2 views revealed no foreign body as well. ASSESSMENT: 1. Fever and leukocytosis of undetermined source, improved. 2. Escherichia coli urinary tract infection, epididymitis, improved. 3. 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 4. Diabetes mellitus. 5. Hypoalbuminemia. 6. History of coronary artery bypass grafting. SUGGESTIONS: Recommend continue treatment with Zosyn and vancomycin. If cultures remain negative, may proceed to discontinue dose and possibly continuation of treatment of UTI with Minocin orally may be in order. We will obtain ESR and CRP and procalcitonin to assess whether we are dealing with viral or bacterial type infection. [address] [address] CONSULTATION Name: GERMAIN YADAV Room #: 419-P ADM IN M.R.#: [id number] Admission: 02/03/19 ������������������ Attend Phys: Kvng Funes MD Discharge: ������������������ Date of : 32 Report #: [id number] Funes, thank you for requesting my suggestions. ��������������������������������������������� <ELECTRONICALLY SIGNED> ���������������������������������������� By: James Suarez MD ��������������������������������������������� 02/10/1910 1001 001 James Suarez MD /nt
--- NOTE | 2019-02-10 12:39 | NUR ---
ASSESMENT COMPLETED. VSS. OX1-2. DENIES PAIN. NO NOTED SOA. NO NV. PT RESTING IN CHAIR AT THIS TIME. UROSTOMY INTACT. WILL CONT. TO MONITOR.
[2019-02-10 15:34] VITALS: BP 125/47
--- NOTE | 2019-02-10 16:08 | NUR ---
PT TRANSFERRED TO RM 452. PT STABLE. NOTIFIED DR. DIAZ AND DTLianet VALDES OF PT'S NEW ROOM NUMBER. BED ALARM ON. WILL CONT. TO MONITOR.
--- NOTE | 2019-02-10 17:49 | NUR ---
NOTED PT LAQUITA: WATCHES/BILLFOLD/KEYS. STORED IN SECURITY FOR SAFETY. SIGNED/WITNESS BY ROBIN MUIR.
[2019-02-10 20:05] VITALS: BP 136/53
[2019-02-10 20:10] VITALS: BP 136/53
--- NOTE | 2019-02-10 20:55 | NUR ---
PT IS ALERT TO SELF, KNOWS HE IS IN THE HOSPITAL. CONVERSATIONAL. C/O COUGH WITH POST NASAL DRAINAGE THAT CAUSED HIM TO VOMIT SOME OF HIS DINNER. HOB ELEVATED. SWALLOWED HS MEDS OK. RED SPOT ON BACK WITH OPTIFORM DRSG ON. UROSTOMY WITH GOOD U/O, LIGHT YELLOW.PT DENIES PAIN.AFEBRILE. 97% ON ROOM AIR AND LUNGS ARE CTA.NO CONCERNS AT THIS TIME. CONTINUING ON IV ABTS. FALL PREC IN PLACE. WILL CONTINUE WITH POC TILL EOS.
[2019-02-11 04:25] VITALS: BP 136/67
--- NOTE | 2019-02-11 09:13 | NUR ---
PATIENT CARE WAS ASSUMED AT 0715.PATIENT IS ALERT AND ORIENTED TO SELF.PATIENT IS SITTING I NBED WATCHING TV.PT HAS NO OF COMPLAINS OF PAIN.PATIENT IS ON FALL PRECAUTIONS, WHICH ARE IN PLACE.PT HAS IV INTACT AND INFUSING FLUIDS.PT HAS CALL LIGHT,PHONE , AND PERSONAL BELONGINGS WITHIN PLACE.
[2019-02-11 16:02] VITALS: BP 119/47
[2019-02-11 20:49] VITALS: BP 126/58
--- NOTE | 2019-02-11 23:15 | NUR ---
RECEIVED REPORT FROM OFFGOING DAY NURSE, ASSUMED CARE @ 19:15. IN BED AA&O X2 CONVERSATIONSL, KNOWS WHY HE IS IN THE HOSPITAL. DENIES PAIN, PEREPHERAL IV NO R/H/I. ON FALL PRECAUTIONS, BED ALARM ON. FSBS 179, 3U S/S GIVEN. UROSTOMY BAG EMPTIED, 350CC OUTPUT NOTED. BAG ATTACHED AND DRAINING CLEAR YELLOW URINE. VSS. CALL LIGHT WITHIN REACH. HOB @ 30 DEGREE ANGLE. WILL CONTINUE TO MONITOR.
[2019-02-12 03:30] VITALS: BP 101/48
[2019-02-12 04:36] VITALS: BP 101/48
[2019-02-12 07:40] VITALS: BP 137/65
--- NOTE | 2019-02-12 09:22 | NUR ---
Assess for length of stay. Admit with UTI, hx alzheimers dementia. Visit during breakfast today, ate 100% of meal and stated appetite as good. Did report hx wt loss about 2 years ago from 220 lb, but mostly stable now. Current wt 164 lb bedscale. Has red spot to coccyx and wound care pending to see. BG 179-226. Low nutrition risk
--- NOTE | 2019-02-12 09:42 | NUR ---
WOUND CONSULT; RIGHT BUTTOCK NEAR MIDLINE AREA DISCOLORATION VS BRUISE (DEBBIE NAZARIO) PATIENT IS ALERT AND ORIENTED. ALBUMIN AT ADMISSION 3.0 TODAY 2.5 RECOMMENDATION; 1- ADD A LOW AIRLOSS PUMP 2- BARRIER CREAM 3-OFFLOAD WITH PILLOW OR WEDGE DISCUSSED WITH STAFF
[2019-02-12] MEDS ORDERED: MINOCYCLINE 5050 M1 PO (10:59)
--- NOTE | 2019-02-12 13:23 | NUR ---
dp sent updates to [facility], also dc paperwork, patient to in today. DP sent dc papers to [facility] and awaiting transportation time.
[2019-02-12 14:40] VITALS: BP 107/54
--- NOTE | 2019-02-12 17:28 | NUR ---
Received awake on bed. Due medications given as prescribed, able to swallow tablets without difficulty. A+O to self, place and time, re-oriented from time to time. Assisted in ADLs. With Urostomy- draining well; output measured and recorded. Able to sit out on chair with minimum assist and gait belt. Had PT session today, able to walk around the singleton with PT. On room air. On blood sugar monitoring, with insulin sliding scale- given as prescribed. With SL at FA. Patient on isolation due to VRE. Falls risk, falls bundle in place. Pt seen by wound nurse today, With DTI at [facility] for rehab medicine, photo taken, barrier cream applied, patient turned every 2 hours, low air flow mattress applied. Pt seen by Dr. Funes, pt for discharge. Confirmed with CM, pt will be discharged to [facility] between [id number]. Informed patient, and he called his daughters as well re: discharge. IV discontinued. Prepared his personal belongings. Discharge instructions, follow up schedule given to patient's transport staff. Called [facility], spoken to Zahra for report, medications, that patient has Urostomy bag which is measured and emptied. Checked patient's notes, pt's personal belongings claimed by his daughter on 02/10/19- form attached on her chart. Fetched by transport service at 1630 via wheelchair.
== END 2019-02-12 17:00 | DRG 689 ==
LOC: ER 17:01 → 4E 19:15 → EROBS 19:15 → 4E 23:54 → 4W 02-10 15:51
PROVIDERS: Internal Medicine; Physician Assistant; ADMIT Internal Medicine
DX: N39.0 Urinary tract infection, site not specified (principal); G92 Toxic encephalopathy; F02.81 Dementia in other diseases classified elsewhere, unspecified severity, with behavioral disturbance; E44.0 Moderate protein-calorie malnutrition; I10 Essential (primary) hypertension; H54.62 Unqualified visual loss, left eye, normal vision right eye; E86.0 Dehydration; B96.20 Unspecified Escherichia coli [E. coli] as the cause of diseases classified elsewhere; F09 Unspecified mental disorder due to known physiological condition; E88.09 Other disorders of plasma-protein metabolism, not elsewhere classified; N45.1 Epididymitis; I25.10 Atherosclerotic heart disease of native coronary artery without angina pectoris; G30.9 Alzheimer's disease, unspecified; E78.5 Hyperlipidemia, unspecified; Z16.12 Extended spectrum beta lactamase (ESBL) resistance; K82.8 Other specified diseases of gallbladder; E11.40 Type 2 diabetes mellitus with diabetic neuropathy, unspecified; F32.9 Major depressive disorder, single episode, unspecified; Z95.1 Presence of aortocoronary bypass graft; Z79.899 Other long term (current) drug therapy; Z79.82 Long term (current) use of aspirin; Z79.4 Long term (current) use of insulin; Z85.51 Personal history of malignant neoplasm of bladder; Z87.440 Personal history of urinary (tract) infections; Z68.22 Body mass index [BMI] 22.0-22.9, adult; Z93.2 Ileostomy status; Z90.6 Acquired absence of other parts of urinary tract; Z90.79 Acquired absence of other genital organ(s)
CPT/HCPCS: 10047; 10783

== ENCOUNTER 2019-02-25 10:39 | Inpatient (IN) | payer OTHER ==
[~2019-02-25] VITALS: Ht 172.7 cm; Wt 74.2 kg
[2019-02-25 10:39] VITALS: BP 105/47
[~2019-02-25 10:39] MED LIST changes: +ARICEPT10 M1 PO; +ENOXAPARIN30 MG/0.1 SUBQ; +KEFLEX500 M1 PO; +MINOCYCLINE 5050 M1 PO; +NAMENDA 5 MG TAB5 M1 PO
[2019-02-25 11:38] LABS: HEMATOCRIT 37.5 % (42.0-52.0); HEMOGLOBIN 12.4 gm/dL (14.0-18.0); MCH 28.5 pg (26.0-34.0); MCHC 33.2 g/dL (28.0-37.0); MCV 85.7 fL (80.0-100.0); PLATELET COUNT 246 thou/uL (150-400); RBC 4.37 mil/uL (4.50-6.00); WBC 31.2 thou/uL (4.0-11.0)
[2019-02-25 11:43] LABS: URINE BILIRUBIN NEGATIVE (Negative); URINE BLOOD 1+ (Negative); URINE CLARITY SL CLOUDY; URINE COLOR YELLOW; URINE GLUCOSE-RANDOM* NEGATIVE (Negative); URINE KETONES NEGATIVE (Negative); URINE LEUKOCYTES 3+ (Negative); URINE NITRITE NEGATIVE (Negative); URINE PROTEIN (DIPSTICK) 1+ (Negative); URINE SPECIFIC GRAVITY 1.015 (1.005-1.035)
[2019-02-25 11:45] LABS: ANION GAP 7 mmol/L (7-16); BUN 33 mg/dL (7-18); CALCIUM 9.4 mg/dL (8.5-10.1); CHLORIDE 99 mmol/L (98-107); CO2 28 mmol/L (21-32); CREATININE 1.8 mg/dL (0.7-1.3); GLUCOSE 157 mg/dL (74-106); POTASSIUM 4.4 mmol/L (3.5-5.1); SODIUM 134 mmol/L (136-145)
[2019-02-25 11:54] LABS: TROPONIN-I <0.06 ng/mL (<0.06)
[2019-02-25 11:56] LABS: BACTERIA >30 Many /HPF (None Seen); CASTS None Seen /LPF (None Seen); CRYSTALS None Seen /LPF (None Seen); SQUAMOUS 4-10 Moderate /LPF (0-3); URINE RBC None Seen /HPF (0-2)
[2019-02-25 11:58] LABS: PLATELET ESTIMATE NORMAL
[2019-02-25 13:45] VITALS: BP 100/42
[2019-02-25 14:42] VITALS: BP 110/41
[2019-02-25 15:00] VITALS: BP 100/44
[2019-02-25] MEDS ORDERED: COLACE100 MG PO (16:05)
[2019-02-25] MEDS ORDERED: LOPERAMIDE 2 MG2 M1 PO (16:06)
[2019-02-25] MEDS ORDERED: MIRALAX17 GM PO (16:08)
[2019-02-25 19:08] VITALS: BP 125/55
[2019-02-26 04:25] VITALS: BP 109/55
[2019-02-26 06:16] LABS: HEMATOCRIT 33.6 % (42.0-52.0); HEMOGLOBIN 11.1 gm/dL (14.0-18.0); MCH 28.3 pg (26.0-34.0); MCV 85.6 fL (80.0-100.0); RBC 3.92 mil/uL (4.50-6.00); RDW 14.6 % (10.5-14.5); WBC 19.1 thou/uL (4.0-11.0)
[2019-02-26 06:28] LABS: CALCIUM 8.5 mg/dL (8.5-10.1); CREATININE 1.2 mg/dL (0.7-1.3); POTASSIUM 3.7 mmol/L (3.5-5.1)
[2019-02-26 08:07] VITALS: BP 131/68
--- NOTE | 2019-02-26 09:16 | EKG ---
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 Eagle : 1930 Requested By: John Briseno Order Number: [id number] MD: Misael Ye Measurements Intervals [place] Rate: 78 P: 28 KS: 165 QRS: -55 QRSD: 100 T: 80 QT: 411 QTc: 469 Interpretive Statements Sinus rhythm Left anterior fascicular block RSR' in V1 or V2, right VCD Compared to ECG 02/03/2019 17:33:06 No significant change Electronically Signed On 02-26-2019 9:16:50 CDT by Misael Ye [email or web address] ��������������������������������������������� <ELECTRONICALLY SIGNED> ���������������������������������������� By: Misael Ye MD, [facility] ��������������������������������������������� 02/26/19 0916 1132 1132 Misael Ye MD, [facility] /EPI
[2019-02-26 17:50] VITALS: BP 118/60
[2019-02-26 20:45] VITALS: BP 146/53
[2019-02-27 03:21] VITALS: BP 137/62
[2019-02-27 03:32] LABS: HEMATOCRIT 33.8 % (42.0-52.0); HEMOGLOBIN 11.2 gm/dL (14.0-18.0); MCH 28.4 pg (26.0-34.0); MCHC 33.2 g/dL (28.0-37.0); MCV 85.7 fL (80.0-100.0); RBC 3.94 mil/uL (4.50-6.00); RDW 14.5 % (10.5-14.5); WBC 11.5 thou/uL (4.0-11.0)
[2019-02-27 07:40] VITALS: BP 96/50
[2019-02-27] MEDS ORDERED: AUGMENTIN 875-1 EACH PO (09:35)
== END 2019-02-27 16:35 | DRG 177 ==
LOC: ER 10:39 → EROBS 12:45 → 4E 12:45
PROVIDERS: Emergency Medicine; ADMIT Hospitalist
DX: J69.0 Pneumonitis due to inhalation of food and vomit (principal); N17.0 Acute kidney failure with tubular necrosis; R65.10 Systemic inflammatory response syndrome (SIRS) of non-infectious origin without acute organ dysfunction; E11.22 Type 2 diabetes mellitus with diabetic chronic kidney disease; I12.9 Hypertensive chronic kidney disease with stage 1 through stage 4 chronic kidney disease, or unspecified chronic kidney disease; F03.90 Unspecified dementia, unspecified severity, without behavioral disturbance, psychotic disturbance, mood disturbance, and anxiety; D72.829 Elevated white blood cell count, unspecified; E78.5 Hyperlipidemia, unspecified; N18.9 Chronic kidney disease, unspecified; Z79.82 Long term (current) use of aspirin; Z79.899 Other long term (current) drug therapy; Z95.1 Presence of aortocoronary bypass graft; Z87.891 Personal history of nicotine dependence; Z93.2 Ileostomy status; Z90.6 Acquired absence of other parts of urinary tract
CPT/HCPCS: 10084

== ENCOUNTER 2019-03-23 14:17 | Inpatient (IN) | payer OTHER ==
[~2019-03-23] VITALS: Ht 152.4 cm; Wt 74.4 kg
[~2019-03-23 14:17] MED LIST changes: +AUGMENTIN 875-1 EACH PO; +COLACE100 MG PO; +LOPERAMIDE 2 MG2 M1 PO
[2019-03-23 14:18] VITALS: BP 121/57
[2019-03-23 14:47] LABS: URINE BILIRUBIN NEGATIVE (Negative); URINE BLOOD TRACE (Negative); URINE CLARITY CLEAR; URINE COLOR YELLOW; URINE GLUCOSE-RANDOM* NEGATIVE (Negative); URINE KETONES NEGATIVE (Negative); URINE LEUKOCYTES-REFLEX 3+ (Negative); URINE NITRITE-REFLEX POSITIVE (Negative); URINE PROTEIN (DIPSTICK) 2+ (Negative); URINE SPECIFIC GRAVITY <= 1.005 (1.005-1.035)
[2019-03-23 14:49] LABS: ABSOLUTE NEUTROPHILS 8.8 thou/uL (1.4-8.2); BASOPHILS 0.3 % (0.0-2.0); HEMOGLOBIN 11.6 gm/dL (14.0-18.0); LYMPHOCYTES 3.1 % (24.0-44.0); MCH 28.3 pg (26.0-34.0); MCHC 33.2 g/dL (28.0-37.0); MCV 85.4 fL (80.0-100.0); MONOCYTES 11.3 % (1.0-8.0); PLATELET COUNT 220 thou/uL (150-400); POLYS 85.3 % (36.0-66.0); RDW 15.5 % (10.5-14.5); WBC 10.3 thou/uL (4.0-11.0)
[2019-03-23 14:56] LABS: ANION GAP 8 mmol/L (7-16); BUN 27 mg/dL (7-18); CALCIUM 8.5 mg/dL (8.5-10.1); CHLORIDE 103 mmol/L (98-107); CO2 28 mmol/L (21-32); CREATININE 1.6 mg/dL (0.7-1.3); GLUCOSE 152 mg/dL (74-106); POTASSIUM 4.2 mmol/L (3.5-5.1); SODIUM 139 mmol/L (136-145)
[2019-03-23 14:57] LABS: CASTS None Seen /LPF (None Seen); SQUAMOUS None Seen /LPF (0-3); URINE WBC-REFLEX >25 Many /HPF (0-5)
[2019-03-23 14:58] LABS: BACTERIA-REFLEX >30 Many /HPF (None Seen); TRIPLE PHOSPHATE CRYSTALS >10 Many /LPF (None Seen); URINE RBC None Seen /HPF (0-2); WBC CLUMPS Few (None Seen)
[2019-03-23 15:00] LABS: PROTIME 10.6 Seconds (9.3-11.4)
[2019-03-23 15:06] LABS: ALBUMIN 2.5 g/dL (3.4-5.0); MAGNESIUM 1.8 mg/dL (1.8-2.4); SGOT 39 U/L (15-37); SGPT 34 U/L (30-65); TOTAL BILIRUBIN 0.8 mg/dL (<0.1-1.0); TOTAL PROTEIN 6.1 g/dL (6.4-8.2); TROPONIN-I <0.06 ng/mL (<0.06)
--- NOTE | 2019-03-23 15:06 | NUR ---
CHELLY [phone]
[2019-03-23 15:14] VITALS: BP 126/54
[2019-03-23 19:05] VITALS: BP 142/58
--- NOTE | 2019-03-23 19:26 | NUR ---
pt admitted from ER about 1730pm, pt knows his name and he can follow some commands, but pt is very weak and pt refuses to eat dinner, pt is continuing IV abt and iv fluid , pt's R side urostomy is working well, pt is o2 2L/MIN/NC, pt's vs and o2sat are stable at this time. pt denies pain at this time.
--- NOTE | 2019-03-23 21:42 | NUR ---
Patient awke, alert to person and place, has history of dementia, angry stating he does not understand why he is in the hospital as he is feeling fine. Repeated explanation to patient why he has been admitted to hospital. Patients wants to go home. Reoriented frequently. Fall precautions in place.
[2019-03-23 23:59] VITALS: BP 146/56
--- NOTE | 2019-03-24 03:32 | NUR ---
Patient making progress towards outcome goals. Very alert but confused and forgetful. Angry at being in the hospital, uses very fowl language towards staff, states nothing has changed around here and that everyone is lying to him. Incontinent of stools. Urostomy intact draining cloudy yellow urine. Vital signs stable. IVfluids infusing. High fall risks, fall precautions in place.
--- NOTE | 2019-03-24 03:52 | NUR ---
Vital signs have been stable. Patient angry and uncooperative refuses morning vitals.
[2019-03-24 05:45] LABS: HEMATOCRIT 35.7 % (42.0-52.0); HEMOGLOBIN 11.9 gm/dL (14.0-18.0); MCH 28.8 pg (26.0-34.0); MCHC 33.4 g/dL (28.0-37.0); MCV 86.2 fL (80.0-100.0); RBC 4.14 mil/uL (4.50-6.00); RDW 15.3 % (10.5-14.5); WBC 9.9 thou/uL (4.0-11.0)
[2019-03-24 05:50] LABS: CALCIUM 8.7 mg/dL (8.5-10.1); CREATININE 1.2 mg/dL (0.7-1.3); POTASSIUM 3.8 mmol/L (3.5-5.1)
[2019-03-24 07:48] VITALS: BP 143/60
[2019-03-24 15:57] VITALS: BP 141/51
--- NOTE | 2019-03-24 18:08 | NUR ---
pt is A&OX 2 ( person and place), but pt is confused at time, pt's vs are stable , pt is continuing IV fluid and iv ABT, PT gets up to chair with assist, and pt stays chair about 2hr, pt denies pain at this time.
[2019-03-24 19:38] VITALS: BP 143/56
[2019-03-25 03:06] VITALS: BP 147/52
--- NOTE | 2019-03-25 05:07 | NUR ---
PT MAKING SLOW PROGRESS TOWARDS GOALS. NOTED TEMP OF 100.8 LAST NIGHT AT 100.5 THIS AM. PT DENIES COMPLAINTS OVERNIGHT. PT HAS BEEN CALM AND COOPERATIVE THROUGHOUT THE NIGHT. ONLY ORIENTED TO HIS NAME.
[2019-03-25 07:57] VITALS: BP 132/93
--- NOTE | 2019-03-25 15:57 | NUR ---
REMAINS CONFUSED, ONLY ORIENTED TO FIRST NAME. MAKING NO ATTEMPTS TO GET OUT OF BED. CHAIR ALARM/BED ALARM ENABLED. POOR APPETITE, ASSISTING PT WITH MEALS, ONLY CONSUMING A FEW BITES. BREATHS SHALLOWLY WHEN ASKED TO TAKE DEEP BREATHS WITH LUNGS REMAINING DIMINISHED, NO COUGH. ADEQUATE URINE OUTPUT PER UROSTOMY. REPORT TO BRUCE RN. PT TRANSFERING TO RM #[id number] PER WHEELCHAIR.
[2019-03-25 17:04] VITALS: BP 141/53
--- NOTE | 2019-03-25 17:09 | NUR ---
XFER PT A/O X3, FORGETFULL, FORGOTS LIMITATION. REASSESSMENT MACKENZIE. ISO MAINTAIN. FAUSTINA CONTINUE TO MONITOR.
--- NOTE | 2019-03-25 19:47 | EKG ---
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1930 Requested By: Brian Martinez Order Number: [id number] MD: Aldo Suarez Measurements Intervals [place] Rate: 89 P: 51 UT: 179 QRS: -68 QRSD: 106 T: 74 QT: 382 QTc: 465 Interpretive Statements Sinus rhythm Atrial premature complex Left anterior fascicular block Borderline low voltage, extremity leads RSR' in V1 or V2, right VCD or RVH Compared to ECG 02/25/2019 11:32:13 Atrial premature complex(es) now present Right ventricular hypertrophy now present Electronically Signed On 03-25-2019 19:47:22 CDT by Aldo Suarez [email or web address] ��������������������������������������������� <ELECTRONICALLY SIGNED> ���������������������������������������� By: Aldo Suarez MD ��������������������������������������������� 03/25/19 1947 18 18 Aldo Suarez MD /EPI
[2019-03-25 21:05] VITALS: BP 135/53
--- NOTE | 2019-03-26 04:21 | NUR ---
ASSUMED CARE AROUND 1900. AXOX2. IMPULSIVE AT TIMES. CLOSE TO NURSING STATION. FREQUENT REORIENTATION AND VISUAL CHECKS RENDERED. IV REPLACED TO RW 20G TOLERATED WELL. DENIES ANY PAIN AT THIS TIME. RESTING COMFORTABLY IN BED. NO S/S ACUTE DISTRESS NOTED OR REPORTED AT THIS TIME. WILL CONT TO MONITOR FOR ANY CHANGES IN CONDITION.
[2019-03-26 06:00] LABS: HEMATOCRIT 33.4 % (42.0-52.0); HEMOGLOBIN 11.4 gm/dL (14.0-18.0); MCH 28.7 pg (26.0-34.0); MCHC 34.1 g/dL (28.0-37.0); RBC 3.98 mil/uL (4.50-6.00); WBC 10.1 thou/uL (4.0-11.0)
[2019-03-26 06:12] LABS: CALCIUM 8.5 mg/dL (8.5-10.1); CREATININE 1.2 mg/dL (0.7-1.3); POTASSIUM 3.4 mmol/L (3.5-5.1)
[2019-03-26 08:00] VITALS: BP 134/56
[2019-03-26 15:00] VITALS: BP 146/58
--- NOTE | 2019-03-26 15:32 | NUR ---
PT RESIDES AT [facility] FAXED CLINICAL UPDATE TO FACILITY SPOKE WITH NIGEL IN ADM THAT PT POSS. DC TOMORROW. DCP TO FOLLOW.
--- NOTE | 2019-03-26 16:03 | NUR ---
PT ADMITTED RELATED TO AMS; WEAKNESS. CM REVIEWED CHART AND SPOKE WITH CARE TEAM. CM ATTEMPTED TO MEET WITH PT AT BEDSIDE THIS DAY BUT PT WAS SLEEPING AND DIDN'T AROUSE. CM CALLED AND SPOKE WITH PT'S DTR KEISHA. SHE INDICTATED THAT PT HAD BEEN LIVING AT [facility] SEPARATING MACHINE OPERATOR. SHE INIDCATED THAT PT HAD BEEN MOSTLY INDEPENDENT WITH GAIT BUT THAT THE MAY HAVE BEEN USING A FWW. DTR INDICATED THAT PLAN IS FOR PT TO DISCHARGE BACK TO [facility] ONCE MEDICALLY STABLE. CM TO FOLLOW INDICATED WITH DC PLANNING.
--- NOTE | 2019-03-26 18:47 | NUR ---
ASSUMED CARE 0700. ALERT X2 WITH CONFUSION, DENIES PAIN, BM TODAY, UP WITH MIN ASSIST. INDEPENDENT WITH MEALS. DECLINED DINNER TODAY. BS WNL. FALL PRECAUTIONS IN PLACE. DOES NOT USE CALL LIGHT. STAFF TO ANTICIPATE NEEDS. LIKELY TO DC TOMORROW TO FACILITY.
[2019-03-26 20:50] VITALS: BP 171/62
[2019-03-27 05:47] LABS: HEMATOCRIT 36.1 % (42.0-52.0); HEMOGLOBIN 12.1 gm/dL (14.0-18.0); MCH 28.4 pg (26.0-34.0); MCHC 33.4 g/dL (28.0-37.0); RBC 4.25 mil/uL (4.50-6.00); RDW 14.9 % (10.5-14.5); WBC 9.8 thou/uL (4.0-11.0)
--- NOTE | 2019-03-27 07:47 | NUR ---
ASSUMED CARE AROUND 1900. AXOX2. IMPULSIVE TO GET UP FROM THE CHIAR BUT EASILY REORIENTABLE. HTN NOTED. REPORTED TO DENIAL MANAGEMENT REPRESENTATIVE SWITCHBOARD OPERATOR ASSISTANT AND LISINOPRIL, HOME MEDS RESUMED. L EYE REDNESS NOTED IN EARLY AM. CALLED DENIAL MANAGEMENT REPRESENTATIVE SWITCHBOARD OPERATOR ASSISTANT AND REPORTED. NEW ORDERS IN CHART. NO S/S ACUTE DISTRESS NOTED OR REPORTED AT THIS TIME. CARE TRANSFEERED TO DAY RN AT THIS TIME.
[2019-03-27 07:48] VITALS: BP 147/58
--- NOTE | 2019-03-27 12:28 | NUR ---
Received awake on bed. Due medications given as prescribed- able to swallow tablets w/o difficulty. A+Ox2, re-oriented frequently. On blood sugar monitoring- measured and recorded; sliding scale insulin given as prescribed. With urostomy to mcpherson bag- draining well, output measured and recorded accordingly; Urostomy stoma- pink, bag intact, no signs of infection noted. With L FA- intact, flushing well. On isolation due to VRI from urine- isolation maintained. Falls risk- falls bundle in place. Pt assisted in ADLs. Pt seen by EFRAÍN Torrez today. With Bilateral upper extermity edema- kept elevated. On room air.
[2019-03-27 13:00] VITALS: BP 136/58
--- NOTE | 2019-03-27 15:56 | NUR ---
CARE TEAM INDICATED THAT PT IS PROGRESSING TOWARD GOAL OF DC THIS DAY. CARE TEAM INDICATED THAT THEY ANTICPATE DC BACK TO [facility] TOMORROW. CM NOTIFIED PT'S DTR. CM TO FOLLOW INDICATED WITH DC PLANNING.
[2019-03-27 19:21] VITALS: BP 139/52
[2019-03-28 04:20] VITALS: BP 133/44
--- NOTE | 2019-03-28 07:11 | NUR ---
Assumed pt care at 1900. Pt alert to self,place and time able to make needs known. Denies pain on assessment,VSS. Up with assist of 1 GB/RW without difficulties. Has a urostomy draining yellow urine,IVF infusing via LFA w/o problems. Isolation maintained for VRE.
[2019-03-28 07:34] VITALS: BP 119/55
[2019-03-28 14:07] VITALS: BP 148/63
--- NOTE | 2019-03-28 15:58 | NUR ---
CARE TEAM HAD ORDERED REPEAT CHEST X-RAY. THEY INDICATED THAT PT COULD BE READY FOR DISCHARGE BACK TO [facility] LATER TODAY OR TOMORROW. SHOULD PT BE READY TO DISCHARGE THIS AFTERNOON CONTACT DUSTIN AT AND SHE WILL ARRANGED TRANSPORT. FAX ORDERS TO . CALL REPORT TO . PLEASE NOTIFY PT'S DTRS OF TIME OF TRANSPORT. CM TO FOLLOW INDICATED WITH DC PLANNING.
[2019-03-28 19:40] VITALS: BP 159/68
--- NOTE | 2019-03-28 20:18 | NUR ---
Assumed pt care this am, pt was able to use the walker and was able to ambulate from bed to the recliner and the bedside commode. he is alert and oriented x 2. CT of the chest with contrast was done today. Urostomy bag inplace and free from infection. Blood sugar checks and appropriate medication given. POC followed, diet and medication are well tolerated. Left eye is still red and swollen, cold compress donce through out the shift. Isolation maintained for VRE. VS have been stable. Instruction from CM for DC are in the notes if to DC tonight. POC followed, no signs or verbalizations of distress have been noted.
--- NOTE | 2019-03-29 04:27 | NUR ---
PATIENT ASSESSED AND IS ALERT X 3. SKIN WARM AND DRY. RESP EVEN AND UNLABORED. LUNGS CTA-DISM. HAS DEMENTIA AT TIMES. BEHAVIOR GOOD THIS SHIFT. LEFT FA IV INFUSING WELL. UP WITH WALKER AND GAIT BELT X 1 PERSON ASSIST. ILEOCONDUIT CONNECTED TO BLOOM BAG. URINE YELLOW IN COLOR. EDEMA NOTED TO BILATERAL HANDS. NO WOUND NOTED. ON ROOM AIR. CONT WITH ANTIBIOTICS. LEFT EYE RED IN COLOR. CONT PLAN OF CARE.TAKING DIET WELL.
[2019-03-29 04:39] VITALS: BP 137/59
[2019-03-29 07:57] VITALS: BP 147/66
[2019-03-29] MEDS ORDERED: AUGMENTIN 875-1 EACH PO (16:30)
[2019-03-29] MEDS ORDERED: ENOXAPARIN30 MG/0.1 SUBQ (16:30)
--- NOTE | 2019-03-29 16:40 | NUR ---
Assumed pt care this am, pt a bit more confused and forgetful compared to yesterday he is alert and oriented x 3. Pt is pleasant but would be implusive and would forget to call when he needs to get up. Frequent rounding has been done, hydration and food intake has been encouraged. VS have been stable, all medications given, POC followed. DC orders given to be transfered to [facility]
[2019-03-29 16:43] VITALS: BP 146/54
--- NOTE | 2019-03-29 17:16 | NUR ---
CARE TEAM INDICATED THAT PT IS MEDICALLY STABLE TO DC BACK TO [facility] THIS DAY. CM NOTIFIED LIAISON DUSTIN SHE IS ARRANGING TRANSPORT. CHART COPY ORDERED. ORDERS FAXED. CM NOTIFIED PT'S DTR KEISHA. CM TRIED TO NOTIFY PT'S OTHER DTR BUT HER PHONE NUMBER WASN'T WORKING. REPORT TO BE CALLED TO . PT IS TO BE TRANSPORTED VIA WHEELCHAIR VAN NURSE TO DOCUMENT TIME OF DEPARTURE. NO OTHER CM INTERVETNION INDICATED. CASE CLOSED.
== END 2019-03-29 19:02 | DRG 871 ==
LOC: ER 14:17 → EROBS 16:00 → 4W 16:00 → 3W 17:29 → 4W 03-25 16:16
PROVIDERS: Emergency Medicine; ADMIT Hospitalist
DX: A41.9 Sepsis, unspecified organism (principal); J18.9 Pneumonia, unspecified organism; G92 Toxic encephalopathy; N39.0 Urinary tract infection, site not specified; E46 Unspecified protein-calorie malnutrition; E11.9 Type 2 diabetes mellitus without complications; I10 Essential (primary) hypertension; F03.90 Unspecified dementia, unspecified severity, without behavioral disturbance, psychotic disturbance, mood disturbance, and anxiety; I25.10 Atherosclerotic heart disease of native coronary artery without angina pectoris; Z66 Do not resuscitate; R41.0 Disorientation, unspecified; E87.6 Hypokalemia; E78.5 Hyperlipidemia, unspecified; Z68.32 Body mass index [BMI] 32.0-32.9, adult; Z95.1 Presence of aortocoronary bypass graft; Z87.891 Personal history of nicotine dependence; Z93.2 Ileostomy status
CPT/HCPCS: 10040; 10045; 10879

== ENCOUNTER 2019-05-19 13:38 | Emergency (ER) | payer OTHER ==
[~2019-05-19] VITALS: Ht 182.9 cm; Wt 72.6 kg
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
[2019-05-19 14:08] LABS: HEMATOCRIT 38.8 % (42.0-52.0); HEMOGLOBIN 12.5 gm/dL (14.0-18.0); MCH 26.8 pg (26.0-34.0); MCHC 32.2 g/dL (28.0-37.0); MCV 83.4 fL (80.0-100.0); PLATELET COUNT 231 thou/uL (150-400); RBC 4.66 mil/uL (4.50-6.00); RDW 16.3 % (10.5-14.5); WBC 23.3 thou/uL (4.0-11.0)
[2019-05-19 14:17] LABS: ANION GAP 11 mmol/L (7-16); BUN 41 mg/dL (7-18); CALCIUM 9.5 mg/dL (8.5-10.1); CHLORIDE 98 mmol/L (98-107); CO2 25 mmol/L (21-32); CREATININE 1.7 mg/dL (0.7-1.3); GLUCOSE 197 mg/dL (74-106); POTASSIUM 4.4 mmol/L (3.5-5.1); SODIUM 134 mmol/L (136-145)
[2019-05-19 14:27] LABS: ALBUMIN 2.6 g/dL (3.4-5.0); MAGNESIUM 1.6 mg/dL (1.8-2.4); SGOT 26 U/L (15-37); SGPT 17 U/L (30-65); TOTAL BILIRUBIN 0.8 mg/dL (<0.1-1.0); TROPONIN-I <0.06 ng/mL (<0.06)
[2019-05-19 14:28] LABS: ANISOCYTOSIS 1+; PLATELET ESTIMATE NORMAL
[2019-05-19 14:40] LABS: BE(vivo) -1.9 mmol/L (-2 to +3); HCO3 22.9 mmol/L (22.0-26.0); PCO2 39.4 mmHg (35.0-45.0); PO2 72.7 mmHg (80.0-100.0); pH 7.383 (7.360-7.450); sO2 94.5 % (92.0-98.0)
[2019-05-19 14:53] LABS: URINE BILIRUBIN NEGATIVE (Negative); URINE BLOOD TRACE (Negative); URINE CLARITY SL CLOUDY; URINE COLOR YELLOW; URINE GLUCOSE-RANDOM* NEGATIVE (Negative); URINE KETONES TRACE (Negative); URINE PROTEIN (DIPSTICK) 2+ (Negative); URINE SPECIFIC GRAVITY <= 1.005 (1.005-1.035)
[2019-05-19 15:01] LABS: URINE LEUKOCYTES-REFLEX 2+ (Negative); URINE NITRITE-REFLEX POSITIVE (Negative)
[2019-05-19 15:06] LABS: AMORPHOUS PHOSPHATES Moderate /LPF (None Seen); CASTS None Seen /LPF (None Seen); SQUAMOUS 0-3 Few /LPF (0-3); URINE RBC 0-2 Rare /HPF (0-2); URINE WBC-REFLEX 6-15 Few /HPF (0-5)
[2019-05-19 15:14] LABS: AMP/METHAMP Negative (Negative); BARBITURATES Negative (Negative); BENZODIAZEPINES Negative (Negative); COCAINE Negative (Negative); METHADONE Negative (Negative); OPIATES Negative (Negative); PCP Negative (Negative)
[2019-05-19] MEDS ORDERED: AUGMENTIN 875-1 EACH PO (15:33)
[2019-05-19 15:36] VITALS: BP 140/53
--- NOTE | 2019-05-20 14:21 | EKG ---
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1930 Requested By: Hilario Pearce Order Number: [id number] MD: Msiael Ye Measurements Intervals [place] Rate: 86 P: 52 [place]: 163 QRS: -36 QRSD: 103 T: 67 QT: 369 QTc: 442 Interpretive Statements Sinus rhythm RSR' in V1 or V2, right VCD Leftward axis Compared to ECG 03/23/2019 14:19:24 Atrial premature complex(es) no longer present Electronically Signed On 05-20-2019 14:21:28 CDT by Misael Ye [email or web address] ��������������������������������������������� <ELECTRONICALLY SIGNED> ���������������������������������������� By: Misael Ye MD, [facility] ��������������������������������������������� 05/20/19 1421 1349 1349 Misael Ye MD, [facility] /EPI
[2019-05-20] MEDS ORDERED: LIPITOR40 MG PO (15:21)
[2019-05-20] MEDS ORDERED: NEURONTIN 400400 M1 PO (15:22)
[2019-05-20] MEDS ORDERED: TYLENOL325 MG PO (15:22)
[2019-05-20] MEDS ORDERED: NYAMYC15 GM TOP (15:23)
[2019-05-20] MEDS ORDERED: IPRAT-ALBUT 0.5-3 ML INH (15:24)
[2019-05-20] MEDS ORDERED: [UNRECOGNIZED DRUG - OTHER] OPHTHALMIC (15:27)
== END 2019-05-19 15:36 ==
LOC: ER 13:38
PROVIDERS: Emergency Medicine
DX: E86.0 Dehydration (principal); N39.0 Urinary tract infection, site not specified; E11.65 Type 2 diabetes mellitus with hyperglycemia; D72.829 Elevated white blood cell count, unspecified; E88.09 Other disorders of plasma-protein metabolism, not elsewhere classified; I10 Essential (primary) hypertension; G30.9 Alzheimer's disease, unspecified; F02.80 Dementia in other diseases classified elsewhere, unspecified severity, without behavioral disturbance, psychotic disturbance, mood disturbance, and anxiety; Z85.51 Personal history of malignant neoplasm of bladder; Z95.1 Presence of aortocoronary bypass graft; Z79.4 Long term (current) use of insulin

== ENCOUNTER 2019-05-20 09:47 | Inpatient (IN) | payer OTHER ==
[~2019-05-20] VITALS: Ht 182.9 cm; Wt 68.0 kg
--- NOTE | ~2019-05-20 | HC ---
[facility] [place] [address] CONSULTATION Name: GERMAIN YADAV Room #: 202-P ADM IN M.R.#: [id number] Admission: 05/20/19 ������������������ Attend Phys: Gaurav Mckee MD Discharge: ������������������ Date of : 32 Report #: [id number] THIS REPORT FOR: //name// CC: [facility] DATE OF SERVICE: 05/20/2019 CONSULTATION: Infectious diseases. HISTORY OF PRESENT ILLNESS: The patient is an 88-year-old gentleman who presents to the hospital 05/2014 with complaint of depressed mental status. The patient was worked up in the ER and found to have pyuria. He was at her [facility] on hospice because of advanced bladder cancer. He was returned to his facility on oral Augmentin. In the morning of admission, the laboratory report positive growth in 2/2 blood cultures. The family was apprised of the situation and revoked hospice and requested transfer to acute care for IV antibiotics. Infectious Disease consultation with Dr. Suarez was requested. PAST MEDICAL HISTORY: Significant for diabetes, hypertension and hyperlipidemia. The patient has significant dementia and is in a fpc. He has cachexia. He has bladder cancer. Other diagnoses include coronary artery disease, treated with coronary artery bypass grafting. SOCIAL HISTORY: The chart lists the patient is , but he lives in a facility. His daughter apparently has been the decision maker. He has a past history of tobacco use in the past, but nothing current. No history of alcohol or drugs. REVIEW OF SYSTEMS: Unavailable because of depressed mental status. PHYSICAL EXAMINATION: GENERAL: The patient appears comfortable, asleep, but not in any distress. He appears somewhat cachectic. VITAL SIGNS: Show temperature 99.2, blood pressure 140/74, pulse 86. SKIN: Shows no rash or lesions. ENT: Grossly normal. HEART: Sounds normal. LUNGS: Clear. ABDOMEN: Belly thin, soft, not tender. EXTREMITIES: Unremarkable. LABORATORY DATA: The white count in the ER was 23,000, after being on Augmentin it is down to 18.4 with a shift to the left. Hemoglobin 13.1, hematocrit 40%, platelet 220,000. Electrolytes showed sodium 137, potassium 5.2, chloride 102, bicarbonate 26, BUN 35, creatinine 1.4, glucose 189. Lactate was normal. Liver [address] [address] CONSULTATION Name: GERMAIN YADAV Room #: 202-P ADM IN M.R.#: [id number] Admission: 05/20/19 ������������������ Attend Phys: Gaurav Mckee MD Discharge: ������������������ Date of : 32 Report #: [id number] function tests showed elevated alkaline phosphatase of 161. B-type natriuretic peptide was elevated at 2317. Chest x-ray was clear. Urinalysis in the ER showed 6-15 white cells and 10-30 bacteria. The urine on the following day when he was admitted showed 0-5 white cells, but still had positive nitrite and bacteria. Urine culture is pending. Repeat blood cultures are pending. A workup on the initial blood cultures from the ER 05/19 showed one of the bottles has Gram-positive cocci and gram-negative rods. A second bottle has Gram-positive cocci. Review of the previous microbiology shows that on 02/03/2019, the patient was admitted with urinary tract infection due to extended spectrum beta lactamase producing E. coli. The organism was susceptible to thienamycin and Zosyn. In December, the patient was admitted with E. coli that was sensitive to all antibiotics. ASSESSMENT AND PLAN: In summary, the patient with end-stage bladder cancer and dementia, but it has positive blood cultures in the setting of urinary tract infection. We will await the results of the urine cultures. For now, I would like to change the Zosyn to meropenem based on the previous culture in February. We want to continue supportive therapy. The patient will benefit from increased nutrition and possible control of heart failure. Hopefully, will respond quickly to antibiotics and will return to his baseline level. I appreciate the opportunity of input in the care of the patient. Dr. Suarez returns on Tuesday for additional followup. ��������������������������������������������� ���������������������������������������� By: ��������������������������������������������� 0820 9 Jae Bradshaw MD /nt
--- NOTE | ~2019-05-20 | D ---
[facility] [address] [place] [address] DISCHARGE SUMMARY Name: GERMAIN YADAV Room #: 430-P ADM IN M.R.#: [id number] Admission: 05/20/19 ������������������ Attend Phys: Gaurav Mckee MD Discharge: ������������������ Date of : 32 Report #: [id number] THIS REPORT FOR: //name// CC: Hilario Bradshaw MD [facility] DATE OF SERVICE: 05/25/2019 HOSPITAL COURSE: The patient is an 88-year-old male who resides at the [facility] for rehabilitation. He became acutely ill there, while on hospice and the patient's family opted to revoke hospice and send him to the hospital. 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 He tolerated this well and his leukocytosis and altered mental status and acute illness resolved. Given the severity of the infection and the resistance of the involved bacterium, the Infectious Diseases nurse consultant Dr. Hilario Carrillo recommended he continue with intravenous Merrem for an additional 5 days after discharge. No oral alternatives are effective in this case. The patient had significant altered mental status issues during this hospital stay and was taken off of Risperdal, originally 1 mg by mouth twice a day and his dose of gabapentin was greatly reduced from 400 twice daily to 100 twice a day. His mental status gradually improved as the infection cleared and the drugs wore off. However, the night prior to discharge he did begin having behaviors again and required additional medication to help him relax and get some sleep that night. I spoke with the patient's daughter on the date of discharge, Cheyenne Olmstead, and she revealed that he had been having problems with the Risperdal and diminished mental capacity at the residential. I suggested to her that we discontinue it in favor of starting divalproex. At the time of discharge, I have ordered divalproex to begin 05/31/2019 since there is a significant potential drug interaction with the antibiotic, Merrem. I did discuss hospice again with the patient's daughter. She expressed an interest in going back on hospice eventually but would like for her father to finish his antibiotics regimen prior to making that consideration. [facility] [address] [place] [address] DISCHARGE SUMMARY Name: VICENTAGERMAIN LAIRD Room #: 430-P [facility] IN M.R.#: [id number] Admission: 05/20/19 ������������������ Attend Phys: Gaurav Mckee MD Discharge: ������������������ Date of : 32 Report #: [id number] Finally, during the patient's hospital stay, he had a speech therapy evaluation in which dysphagia was found and a swallowing study was performed. During his final note on the , he was noted to continue having evidence of overt signs and symptoms of aspiration with thin liquids, but no overt symptoms or signs with mechanical soft chopped meat diet with nectar thickened liquids. Given the patient's baseline level of confusion with dementia, this would appear to be the most appropriate diet for him to continue on after discharge. It would be reasonable in the next couple of weeks to have speech therapy see him again and perform another swallowing study to see if he can tolerate thin liquids again. DISCHARGE DIET: Mechanical soft/chopped meat with nectar thickened liquids. DISCHARGE MEDICATIONS: As follows, Merrem 500 mg IV q. 8 hours x 5 days, donepezil 10 mg p.o. at bedtime, gabapentin 100 mg p.o. b.i.d. Resume Lantus and lispro insulin as per his regimen prior to this hospitalization at the same residential. Divalproex 250 mg p.o. b.i.d. to begin after Merrem regimen is completed. He will need routine lab tests for followup on the divalproex as well. DISCHARGE DIAGNOSES: 1. Sepsis due to extended spectrum beta lactamase Escherichia coli. 2. Urinary tract infection due to Extended-spectrum beta-lactamase Escherichia coli. 3. Toxic metabolic encephalopathy. 4. Severe malnutrition. 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 6. Hypertension. 7. Grief reaction. 8. Dementia with behaviors. 9. History of coronary artery disease. 10. History of bladder cancer. 11. Hyperlipidemia. 12. Abdominal aortic aneurysm. 13. 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 14. Previously on hospice. ��������������������������������������������� ���������������������������������������� By: ��������������������������������������������� [id number] Kvng Funes MD /nt
[2019-05-20 09:50] VITALS: BP 127/67
--- NOTE | 2019-05-20 10:22 | NUR ---
PT. DAUGHTER KEISHA GARCIAL: [phone]
[2019-05-20 10:49] LABS: ABSOLUTE NEUTROPHILS 16.5 thou/uL (1.4-8.2); BASOPHILS 0.1 % (0.0-2.0); EOSINOPHILS 0.1 % (0.0-3.0); HEMATOCRIT 40.5 % (42.0-52.0); HEMOGLOBIN 13.1 gm/dL (14.0-18.0); LYMPHOCYTES 3.2 % (24.0-44.0); MCH 27.3 pg (26.0-34.0); MCHC 32.3 g/dL (28.0-37.0); MCV 84.5 fL (80.0-100.0); PLATELET COUNT 220 thou/uL (150-400); POLYS 89.6 % (36.0-66.0); RBC 4.79 mil/uL (4.50-6.00); RDW 16.6 % (10.5-14.5); WBC 18.4 thou/uL (4.0-11.0)
[2019-05-20 11:12] LABS: URINE BILIRUBIN NEGATIVE (Negative); URINE BLOOD 1+ (Negative); URINE CLARITY CLOUDY; URINE COLOR YELLOW; URINE GLUCOSE-RANDOM* NEGATIVE (Negative); URINE KETONES NEGATIVE (Negative); URINE LEUKOCYTES-REFLEX 2+ (Negative); URINE NITRITE-REFLEX POSITIVE (Negative); URINE PROTEIN (DIPSTICK) 2+ (Negative); URINE SPECIFIC GRAVITY <= 1.005 (1.005-1.035); URINE UROBILINOGEN 0.2 E.U./dl (0.2-1.0)
[2019-05-20 11:14] LABS: ALBUMIN 2.4 g/dL (3.4-5.0); CALCIUM 9.5 mg/dL (8.5-10.1); CREATININE 1.4 mg/dL (0.7-1.3); DIRECT BILIRUBIN 0.1 mg/dL (<0.1-0.3); POTASSIUM 5.2 mmol/L (3.5-5.1); TOTAL BILIRUBIN 0.6 mg/dL (<0.1-1.0); TOTAL PROTEIN 7.2 g/dL (6.4-8.2)
[2019-05-20 11:20] LABS: AMORPHOUS PHOSPHATES Few /LPF (None Seen); BACTERIA-REFLEX 1-9 Few /HPF (None Seen); CASTS None Seen /LPF (None Seen); SQUAMOUS None Seen /LPF (0-3); TRIPLE PHOSPHATE CRYSTALS >10 Many /LPF (None Seen); URINE RBC 0-2 Rare /HPF (0-2); URINE WBC-REFLEX 0-5 Rare /HPF (0-5)
[2019-05-20 11:49] VITALS: BP 133/61
[2019-05-20 12:10] VITALS: BP 128/78
[2019-05-20 12:35] VITALS: BP 134/68
[2019-05-20 15:20] VITALS: BP 139/67
[2019-05-20] MEDS ORDERED: LIPITOR40 MG PO (15:21)
[2019-05-20] MEDS ORDERED: NEURONTIN 400400 M1 PO (15:22)
[2019-05-20] MEDS ORDERED: TYLENOL325 MG PO (15:22)
[2019-05-20] MEDS ORDERED: NYAMYC15 GM TOP (15:23)
[2019-05-20] MEDS ORDERED: IPRAT-ALBUT 0.5-3 ML INH (15:24)
[2019-05-20] MEDS ORDERED: [UNRECOGNIZED DRUG - OTHER] OPHTHALMIC (15:27)
--- NOTE | 2019-05-20 18:21 | NUR ---
SPOKE WITH PT DAUGHTER, SHE WAS CONFUSED ON DIFFERENCE BETWEEN HOSPICE AND DNR STATUS.EXPLAINED TO HER AND REVIEWED PT OUT OF HOSPITAL DNR FROM FEBRUARY, SHE TALKED TO HER AND THEY DECIDED TO MAKE THE PT A DNR. PAGED DR CAREY, HE IS GOING TO PUT IN THE ORDER.
[2019-05-20 19:39] VITALS: BP 140/74
[2019-05-21 00:15] VITALS: BP 143/65
[2019-05-21 04:46] VITALS: BP 130/73
[2019-05-21 04:57] LABS: HEMATOCRIT 37.7 % (42.0-52.0); MCH 26.8 pg (26.0-34.0); MCHC 31.8 g/dL (28.0-37.0); RBC 4.49 mil/uL (4.50-6.00); RDW 17.2 % (10.5-14.5); WBC 12.4 thou/uL (4.0-11.0)
--- NOTE | 2019-05-21 05:01 | NUR ---
ASSUMED PT CARE AT 1900 WITH NO SIGN OF DISTRESS NOTED. PT IS ALERT BUT DISORIENTED. NO FAMILY AT BEDSIDE. PT HAS BEEN SEEN BY PHYSICIAN. PT IS LAYING IN BED COMFORTABLY. PT IS NPO. SCHEDULED MEDS ADMINISTERED. ASSESSMENT COMPLETED AND DOCUMENTED. FALL PRECAUTION IN PLACE. DENIES ANY FURTHER NEEDS AT THIS TIME.
[2019-05-21 05:11] LABS: CALCIUM 9.6 mg/dL (8.5-10.1); CREATININE 1.4 mg/dL (0.7-1.3)
[2019-05-21 05:12] LABS: POTASSIUM 4.1 mmol/L (3.5-5.1)
[2019-05-21 07:30] VITALS: BP 133/67
--- NOTE | 2019-05-21 10:57 | NUR ---
patient admits from [facility] with Bacteremia. Patient ltc resident of [facility]. Sp with dtr who reports she recently fell and broke her foot so unable to be at hospital. Patient to return to facility. CM to update facility.
[2019-05-21 11:30] VITALS: BP 132/61
[2019-05-21 15:50] VITALS: BP 128/64
--- NOTE | 2019-05-21 16:24 | NUR ---
FAXED CLINICAL UPDATE TO [facility] SPOKE WITH DUSTIN IN ADM SHE RECEIVED UPDATE. DCP TO FOLLOW.
--- NOTE | 2019-05-21 17:22 | NUR ---
ASSESSMENT CHARTED - MEDS PER MAR - NO CO'S OF PAIN OR NAUSEA. PT SEEN BY SPEECH THERAPY THIS AM - STARTED ON PURREED DIET WITH HONEY THICK LIQUIDS - PT NEEDING TO BE FEED. JACLYN DIET AND FLIUDS. PT HAS BEEN ERSTING IN BED THIS SHIFT - PT CONFUSED - LAYING STARING INTO SPAC AT TIME - ANSWERS QUESTIONS ONLY WHEN HE WISHES TOO. ACUCHECKS CHARTED - COVERED PER SSI -PRN. NEW IV STARTED IN RFA LAC WOULD CONTINUALLY BEEP WITH PATIENT BENDING ARM. NO CO'S AT THE PRESENT TIME. APPEARS TO BE RESTING COMFORTABLY.
[2019-05-21 20:00] VITALS: BP 145/68; BP 148/68
[2019-05-22] VITALS (7 sets, daily range): BP systolic 116–153; BP diastolic 44–78
[2019-05-22 05:09] LABS: ABSOLUTE NEUTROPHILS 6.5 thou/uL (1.4-8.2); BASOPHILS 0.4 % (0.0-2.0); EOSINOPHILS 5.1 % (0.0-3.0); HEMATOCRIT 37.5 % (42.0-52.0); HEMOGLOBIN 12.1 gm/dL (14.0-18.0); LYMPHOCYTES 14.5 % (24.0-44.0); MCH 27.2 pg (26.0-34.0); MCHC 32.4 g/dL (28.0-37.0); MCV 83.9 fL (80.0-100.0); PLATELET COUNT 237 thou/uL (150-400); RBC 4.47 mil/uL (4.50-6.00); RDW 16.4 % (10.5-14.5); WBC 9.3 thou/uL (4.0-11.0)
[2019-05-22 05:26] LABS: ALBUMIN 2.2 g/dL (3.4-5.0); CALCIUM 9.8 mg/dL (8.5-10.1); CREATININE 1.2 mg/dL (0.7-1.3); POTASSIUM 3.9 mmol/L (3.5-5.1); TOTAL BILIRUBIN 0.4 mg/dL (<0.1-1.0); TOTAL PROTEIN 6.5 g/dL (6.4-8.2)
--- NOTE | 2019-05-22 06:45 | NUR ---
PATIENTS CARES WERE ASSUMED AT SHIFT CHANGE. PATIENT WAS ASSESSED AND MEDS WERE PASSED. THE PATIENTS UROSTOMY BAG WAS CHANGED AND A FOLY WAS PLACED TO CATCH NIGHT URINE. PATIENT NEEDS HIS IV REPLACED BECAUSE HE PULLED IT OUT, WILL PASS THIS TASK TO THE DAY SHIFT.HOURLY ROUNDING WAS DONE. THE BED IS IN A LOW AND LOCKED POSITION.
--- NOTE | 2019-05-22 18:27 | NUR ---
ASSUMMED PT CARE AT [facility] 0700. PT A&O TO HIMSELF. PT C HX OF DEMENTIA. ASSESSMENT CHARTED. FALL PRECAUTIONS IN PLACE. VITAL SIGNS STABLE. PT STATED HE WAS NOT IN PAIN. PT DENIED HAVING SOB. PT DENIED HAVING CHEST PAIN. PT UP TO CHAIR THROUGHOUT SHIFT. ENCOURAGED PT TO EAT AND DRINK FLUIDS. PT'S TELE DC SINCE MED-SURG STATUS. PT REMOVED HIS IV ACCESS. CONTINUING TO RE-ORIENT PT AND GIVE PT ACTIVITIES FOR DISTRACTION. PT COMFORTABLE IN CHAIR.
--- NOTE | 2019-05-22 22:55 | NUR ---
PATIENTS CARES WERE ASSUMED AT SHIFT CHANGE. PATIENT WAS ASSESSED AND MEDS WERE PASSED.PATIENT DOES GET MORE CONFUSED THE NIGHT PROGRESSES. NO OFFICAL DX OF SUNDOWNERS, HOWEVER IT DOES APPER THAT WAY. THE BED ALARM WAS SET TIGHT DUE TO HIS QUICK URGES TO GET UP. PATIENT IS CLOSE TO THE NURSES STATION. HOURLY ROUNDING WAS DONE. THE BED IS IN A LOW AND LOCKED POSITION, ORDERS TO DOWN GRADE AND RANSFER THIS PATIENT O MED/SURG AREA. PATIENT WAS TRANSFERED TO [facility]. THE DOCTOR WAS CALLED AND NOIFIED.
[2019-05-23 04:10] VITALS: BP 140/80
--- NOTE | 2019-05-23 06:09 | NUR ---
PT TRANSFERED TO UNIT APPROX. 2245. PT ALERT TO SELF. CALM AND COOPERATIVE. REASSESSMENT COMPLETE, VSS. NEW IV INSERTED. PT CLOSE TO NURSES STATION. DENIES PAIN, DENIES N/V. CALL LIGHT AND PERSONAL BNELONINGS WITHIN REACH, WILL CONTINUE POC UNTIL EOS.
[2019-05-23 08:10] VITALS: BP 145/72
[2019-05-23 18:16] VITALS: BP 136/79
--- NOTE | 2019-05-23 19:39 | NUR ---
Assumed patient care at 0715. Patient has been very confused, requires much re-direction. Patient has removed his Urostomy bag several x's today, getting urine on the floor of his room. He continues on Contact Precautions for VRE in blood et urine. He requires assistance during meals. Patient was not given his siding scale Insulin after Dinner, as he refused the entire meal. Vital signs have been stable. Continues to climb out of bed despite re-direction. Reported to [facility].
[2019-05-23 20:04] VITALS: BP 146/71
--- NOTE | 2019-05-24 00:32 | NUR ---
ASSESSMENT COMPLETED. PT IS STILL CONFUSED AND FORGETFUL. FALL PREC IN PLACE.DENIES PAIN. SWALLOWED HS MEDS WELL IN PUDDING. HE KEEPS MESSING WITH HIS UROSTOMY BAG BUT ADEQUATE LIGHT YELLOW OUTPUT NOTED. PT IS ON ISOLAION FOR VRE IN THE URINE.FALL PREC IN PLACE. NO FURTHER CONCERNS.
[2019-05-24 05:11] VITALS: BP 119/52
[2019-05-24 05:42] LABS: HEMATOCRIT 38.2 % (42.0-52.0); HEMOGLOBIN 12.7 gm/dL (14.0-18.0); MCH 27.6 pg (26.0-34.0); MCHC 33.2 g/dL (28.0-37.0); MCV 82.9 fL (80.0-100.0); RBC 4.61 mil/uL (4.50-6.00); RDW 16.3 % (10.5-14.5); WBC 8.7 thou/uL (4.0-11.0)
[2019-05-24 06:11] LABS: ALBUMIN 2.1 g/dL (3.4-5.0); POTASSIUM 3.9 mmol/L (3.5-5.1); TOTAL BILIRUBIN 0.3 mg/dL (<0.1-1.0); TOTAL PROTEIN 6.1 g/dL (6.4-8.2)
[2019-05-24 07:48] VITALS: BP 140/66
--- NOTE | 2019-05-24 12:16 | NUR ---
PT A&O TO SELF. AMBULATES WITH ASSIST X1. IV INTACT IN L FA INFUSING FLUIDS W/O COMPS. UROSTOMY INTACT. PT IS NOT IMPULSIVE AT THIS TIME, BED/HAIR ALARM ON AT ALL TIMES. WILL CONT POC.
--- NOTE | 2019-05-24 16:13 | NUR ---
CM CALLED AND SPOKE WITH PT'S DTR KEISHA CM INDICATED THAT PT IS PROGRESSING TOWARD GOAL OF RETURNING TO [facility]. CM ASKED IF SHE KNEW WHAT HOSPICE PROVIDER PT HAD BEEN ON [employer] AND SHE INDICATED [facility]. CM ASKED IF THEY ANTICPATED PT RESUMING SERVICES WITH THEM UPON DC AND SHE INDICATED THAT WOULD BE FINE. CM TO FOLLOW INDICATED WITH DC PLANNING. DC PROCUREMENT CLERK FAXED CLINICAL UPDATE TO [facility].
[2019-05-24 16:28] VITALS: BP 134/60
[2019-05-24 19:45] VITALS: BP 147/70
--- NOTE | 2019-05-25 03:13 | NUR ---
ASSESSMENT COMPLETED.PT ALERT,CONFUSED,FORGETFUL AND IMPULSIVE AT START OF SHIFT.DR DIAZ HERE TO SEE PT,ORDER NOTED OFR ANXIETY AND PAIN MED ONETIME.ORDER CARRIED OUT.PT SLEEPING COMFORTABLY ON HIS BED AT THIS TIME.FALL PRECAUTIONS IN PLACE,CALL LIGHT WITHIN REACH.
[2019-05-25 05:27] VITALS: BP 137/85
[2019-05-25 08:08] VITALS: BP 138/76
[2019-05-25 09:30] VITALS: BP 138/76
[2019-05-25] MEDS ORDERED: GABAPENTIN 100100 MG PO (11:35)
[2019-05-25] MEDS ORDERED: DEPAKOTE 250MG250 M1 PO (11:35)
[2019-05-25] MEDS ORDERED: GLUCAGEN1 MG/1 ML IM (11:36)
[2019-05-25] MEDS ORDERED: GLUTOSE GEL 1515 G1 PO (11:36)
--- NOTE | 2019-05-25 15:36 | NUR ---
PT DISCHARGING BACK TO [facility] FAXED DC ORDERS/SUMMARY TO FACILITY SPOKE WITH DUSTIN IN ADM SHE RECEIVED DC ORDERS AND ARRANGED TRANSPORT BY [facility] FOR 1800 TODAY. NOTIFIED PT'S DTR KEISHA OF DISCHARGE AND TIME OF TRANSPORT. NOTIFIED UNIT AND CHART COPY PER US. RN TO CALL REPORT TO [phone].
--- NOTE | 2019-05-25 15:40 | NUR ---
FAXED REFERRAL TO [facility] SPOKE WITH MELANIE IN ADM SHE RECEIVED REFERRAL AND CAN ACCEPT AT DISCHARGE.
--- NOTE | 2019-05-25 18:28 | NUR ---
Assumed patient care at 0715. Patient has been confused, re-directed from removing his clothing et climbing out of bed several times. He became agitated as the day went on. His vital signs have been stable, ABD is soft et non-tender, BSx's 4, skin is clean, warm dry et intact; he denies pain. No side effects from IV antibiotics. Patient was Discharged to another facility via EMS transport at 1825. Discharge paperwork was sent with transporters.
== END 2019-05-25 18:27 | DRG 871 ==
LOC: ER 09:47 → 4E 11:32 → EROBS 11:32 → 2N 11:32 → 4E 05-22 23:47
PROVIDERS: Emergency Medicine; Internal Medicine; Specialist; ADMIT Internal Medicine
DX: A41.51 Sepsis due to Escherichia coli [E. coli] (principal); G92 Toxic encephalopathy; E43 Unspecified severe protein-calorie malnutrition; F03.91 Unspecified dementia, unspecified severity, with behavioral disturbance; N17.9 Acute kidney failure, unspecified; N12 Tubulo-interstitial nephritis, not specified as acute or chronic; E11.9 Type 2 diabetes mellitus without complications; I10 Essential (primary) hypertension; E78.5 Hyperlipidemia, unspecified; I25.10 Atherosclerotic heart disease of native coronary artery without angina pectoris; F43.20 Adjustment disorder, unspecified; I71.4 Abdominal aortic aneurysm, without rupture; B96.20 Unspecified Escherichia coli [E. coli] as the cause of diseases classified elsewhere; Z95.1 Presence of aortocoronary bypass graft; Z85.51 Personal history of malignant neoplasm of bladder; Z68.20 Body mass index [BMI] 20.0-20.9, adult; Z90.49 Acquired absence of other specified parts of digestive tract; Z87.891 Personal history of nicotine dependence; Z93.2 Ileostomy status; Z90.6 Acquired absence of other parts of urinary tract
CPT/HCPCS: 10081; 10084

== ENCOUNTER 2019-07-02 16:57 | Inpatient (IN) | payer OTHER ==
[~2019-07-02] VITALS: Ht 170.2 cm; Wt 72.7 kg
[~2019-07-02 16:57] MED LIST changes: +DEPAKOTE 250MG250 M1 PO; +GABAPENTIN 100100 MG PO; +GLUCAGEN1 MG/1 ML IM; +GLUTOSE GEL 1515 G1 PO; +IPRAT-ALBUT 0.5-3 ML INH; +LIPITOR40 MG PO; +MACROBID 100 M100 MG PO; +NYAMYC15 GM TOP; +TYLENOL325 MG PO; +[UNRECOGNIZED DRUG - OTHER] OPHTHALMIC
[2019-07-02 16:58] VITALS: BP 131/53
[2019-07-02 17:40] LABS: HEMATOCRIT 39.9 % (42.0-52.0); MCH 26.8 pg (26.0-34.0); MCHC 32.6 g/dL (28.0-37.0); MCV 82.1 fL (80.0-100.0); PLATELET COUNT 208 thou/uL (150-400); RBC 4.86 mil/uL (4.50-6.00); RDW 16.8 % (10.5-14.5)
[2019-07-02 17:46] LABS: ANION GAP 8 mmol/L (7-16); BUN 30 mg/dL (7-18); CALCIUM 9.3 mg/dL (8.5-10.1); CHLORIDE 96 mmol/L (98-107); CO2 28 mmol/L (21-32); CREATININE 1.4 mg/dL (0.7-1.3); GLUCOSE 92 mg/dL (74-106); POTASSIUM 4.4 mmol/L (3.5-5.1); SODIUM 132 mmol/L (136-145)
[2019-07-02 17:58] LABS: ALBUMIN 2.9 g/dL (3.4-5.0); MAGNESIUM 1.8 mg/dL (1.8-2.4); SGOT 27 U/L (15-37); SGPT 16 U/L (30-65); TOTAL BILIRUBIN 0.6 mg/dL (<0.1-1.0); TOTAL PROTEIN 7.2 g/dL (6.4-8.2); TROPONIN-I <0.06 ng/mL (<0.06)
[2019-07-02 17:59] LABS: ABSOLUTE NEUTROPHILS 18.7 thou/uL (1.4-8.2)
[2019-07-02 18:00] LABS: ANISOCYTOSIS 1+
[2019-07-02 18:04] LABS: URINE BILIRUBIN NEGATIVE (Negative); URINE BLOOD 3+ (Negative); URINE CLARITY CLEAR; URINE COLOR YELLOW; URINE GLUCOSE-RANDOM* NEGATIVE (Negative); URINE KETONES 1+ (Negative); URINE NITRITE-REFLEX NEGATIVE (Negative); URINE PROTEIN (DIPSTICK) 2+ (Negative); URINE UROBILINOGEN 0.2 E.U./dl (0.2-1.0)
[2019-07-02 18:05] LABS: URINE LEUKOCYTES-REFLEX 1+ (Negative)
[2019-07-02 18:11] LABS: CASTS None Seen /LPF (None Seen); CRYSTALS None Seen /LPF (None Seen); SQUAMOUS None Seen /LPF (0-3); URINE RBC 3-10 Few /HPF (0-2)
[2019-07-02 18:20] LABS: AMP/METHAMP Negative (Negative); BARBITURATES Negative (Negative); BENZODIAZEPINES Negative (Negative); COCAINE Negative (Negative); METHADONE Negative (Negative); OPIATES Negative (Negative); PCP Negative (Negative)
[2019-07-02 18:40] LABS: BE(vivo) 0.7 mmol/L (-2 to +3)
[2019-07-02 20:03] VITALS: BP 117/52
[2019-07-02 20:10] VITALS: BP 126/73
[2019-07-03] VITALS: BP 119/70
[2019-07-03 04:15] VITALS: BP 144/75
[2019-07-03 04:52] LABS: MCH 26.7 pg (26.0-34.0); MCHC 32.4 g/dL (28.0-37.0); MCV 82.5 fL (80.0-100.0); RBC 4.12 mil/uL (4.50-6.00); WBC 16.2 thou/uL (4.0-11.0)
[2019-07-03 05:02] LABS: CALCIUM 8.6 mg/dL (8.5-10.1); CREATININE 1.4 mg/dL (0.7-1.3); POTASSIUM 3.6 mmol/L (3.5-5.1)
--- NOTE | 2019-07-03 06:06 | NUR ---
ASSUMED CARE OF PT AT 2100 DURING ADMISSION TO UNIT. A&Ox2, KNEW HIS NAME & THAT HE IS IN THE HOSPITAL. BECAME CONFUSED DURING ASSMT QUESTIONS, OFTEN STATING YES, THEN NO, THEN I DON'T KNOW. NO FAMILY PRESENT TO ASSIST IN ASSMT. HE DOES FOLLOW DIRECTIONS AND WAS NOT IMPULSIVE THIS SHIFT. VS STABLE, SR ON TELE. UROSTOMY BAG FOUND DURING PHYSICAL EXAM, PATENT. IV ANTIBX GIVEN ORDERED. PICTURE TAKEN OF L KNEE WOUND HE SAID WAS FROM A FALL AT HOME A COUPLE DAYS AGO AND PLACED IN CHART. NOT UP THIS SHIFT D/T WEAKNESS. CURRENTLY RESTING. PROGRESSING TOWARDS POC GOALS.
[2019-07-03 07:29] VITALS: BP 104/50
--- NOTE | 2019-07-03 08:37 | EKG ---
[address] [employer] [place] [address] ELECTROCARDIOGRAM REPORT Name: OLIGERMAIN AGARWAL Room #: 353-P ADM IN M.R.#: [id number] Admission: 07/02/19 Attend Phys: Adria Hernandez MD Discharge: Date of : 32 Report #: [id number] THIS REPORT FOR: //name// [facility] ED Test Date: 2019-07-02 Test Time: 17:03:42 Pat Name: GERMAIN YADAV Department: Room: 353 Gender: M Squad Boss: CLIFFORD : 1930 Requested By: Hilario Pearce Order Number: [id number] MD: Aldo Suarez Measurements Intervals Lantry Rate: 86 P: 68 MN: 171 QRS: -66 QRSD: 93 T: 92 QT: 378 QTc: 452 Interpretive Statements Sinus rhythm Probable left atrial enlargement Inferior infarct, 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
--- NOTE | 2019-07-03 11:10 | 2DMMODE ---
[facility] [address] [place] [address] 2 D/M-MODE ECHOCARDIOGRAM Name: GERMAIN YADAV Room #: 353-P ADM IN .R.#: [id number] Admission: 07/02/19 Attend Phys: Adria Hernandez MD Discharge: Date of : 32 Report #: [id number] THIS REPORT FOR: //name// APPROVED REPORT Study performed: 07/03/2019 09:37:38 EXAM: Comprehensive 2D, Doppler, and color-flow Echocardiogram Patient Location: In-Patient Room #: 353 Status: routine BSA: 1.84 HR: 66 bpm BP: 104/50 mmHg Rhythm: Irregular Other Information Study Quality: Good Indications Diabetes CAD Hypertension/HDD Elevated BNP, CABG 2D Dimensions RVDd: 31.11 mm IVSd: 11.84 (7-11mm) LVOT Diam: 20.36 (18-24mm) LVDd: 53.70 mm PWd: 10.07 (7-11mm) Ascending Ao: 30.59 (22-36mm) LVDs: 44.49 (25-40mm) Aortic Root: 31.09 mm IVC: 26.00 mm Volumes Left Atrial Volume (Systole) Single Plane 4CH: 71.48 mL Single Plane 2CH: 71.49 mL LA ESV Index: 41.00 mL/m2 Aortic Valve AoV Peak Jorge L.: 1.68 m/s AO Peak Gr.: 11.32 mmHg LVOT Max P.84 mmHg LVOT Max V: 0.98 m/s COLEMAN Vmax: 1.89 cm2 [facility] [address] [place] [address] 2 D/M-MODE ECHOCARDIOGRAM Name: GERMAIN YADAV Room #: 353-P [facility] IN [facility].#: [id number] Admission: 07/02/19 Attend Phys: Adria Hernandez MD Discharge: Date of : 32 Report #: [id number] Mitral Valve E/A Ratio: 0.8 MV Decel. Time: 189.76 ms MV E Max Jorge L.: 0.97 m/s MV A Jorge L.: 1.21 m/s MV PHT: 55.03 ms Pulmonary Valve PV Peak Jorge L.: 1.41 m/s PV Peak Gr.: 7.91 mmHg Pulmonary Vein P Vein S: 0.74 m/s P Vein A: 0.27 m/s P Vein D: 0.72 m/s P Vein A Dur.: 64.6 msec P Vein S/D Ratio: 1.03 Tricuspid Valve TR Peak Jorge L.: 3.26 m/s RAP Estimate: 15.00 mmHg TR Peak Gr.: 42.46 mmHg PA Pressure: 57.00 mmHg Left Ventricle The left ventricle is normal size. There is normal left ventricular wall thickness. Left ventricular systolic function is low normal. LVEF is 50-55%. Mild diastolic dysfunction is present (impaired relaxation pattern). Right Ventricle The right ventricle is normal size. The right ventricular systolic function is normal. Atria Left atrium is mildly dilated. The right atrium size is normal. Aortic Valve The aortic valve is normal in structure. Trace aortic regurgitation. There is no aortic valvular stenosis. Mitral Valve Mitral valve leaflets are thickened. Moderate mitral regurgitation. No evidence of mitral valve stenosis. Tricuspid Valve The tricuspid valve is normal in structure. Mild tricuspid regurgitation. Estimated PAP is 57mmHg. [facility] [address] [place] [address] 2 D/M-MODE ECHOCARDIOGRAM Name: GERMAIN YADAV Room #: 353-P ADM IN M.R.#: [id number] Admission: 07/02/19 Attend Phys: Adria Hernandez MD Discharge: Date of : 32 Report #: [id number] Pulmonic Valve The pulmonary valve is normal in structure. Trace pulmonic regurgitation. Great Vessels The aortic root is normal in size. IVC is dilated and collapses <50% with inspiration. Pericardium There is no pericardial effusion. <Conclusion> The left ventricle is normal size. LVEF is 50-55%. Left atrium is mildly dilated. The aortic valve is normal in structure. Trace aortic regurgitation. Mitral valve leaflets are thickened. Moderate mitral regurgitation. The tricuspid valve is normal in structure. Mild tricuspid regurgitation. Estimated PAP is 57mmHg. The pulmonary valve is normal in structure. Trace pulmonic regurgitation. There is no pericardial effusion. <ELECTRONICALLY SIGNED> By: Doron Duran MD 07/03/19 111 09 09 Doron Duran MD /INF
[2019-07-03 14:59] VITALS: BP 120/47
--- NOTE | 2019-07-03 15:43 | NUR ---
Pt A & O x2 to person and place. Refused breakfast, ate 100% lunch. Resting in bed throughout the day. Pleasant mood. Wanting to talk to daughter, helped call and no answer. Tolerating antibiotics well.
--- NOTE | 2019-07-03 15:46 | NUR ---
ASSESSMENT: CM REVIEWED CHART AND MET WITH PATIENT AT THE BEDSIDE WELL SPOKE WITH PATIENTS DAUGHTER KEISHA. PT LIVES AT HOME WITH HIS DAUGHTER AND RECENTLY LEFT [facility] ABOUT 6 DAYS AGO. PTS HOME WHERE HE LIVES WITH HIS DAUGHTER HAS ABOUT 4 STEPS WITH HANDRAILS AND ANOTHER 9 STEPS WITH HANDRAILS TO HIS BEDROOM. PT USES A WALKER FOR AMBULATION. PT HAS A GRAB BAR IN THE SHOWER. PT REPORTS HAVING [facility] AT HOME. CM DISCUSSED ROLE. PT ANTICIPATES BEING ABLE TO DISCHARGE BACK HOME WITH [facility]. CM NOTIFIED [facility] AND FAXED REFERRAL.
--- NOTE | 2019-07-03 17:49 | NUR ---
ASSUMED PATIENT CARE AT 0700, A/O X2. VSS. AFEBRILE ON THIS SHIFT. DENIES PAIN. FOLLOW COMMAND. SLOWLY TOWARDS POC GOALS.
[2019-07-03 19:20] VITALS: BP 103/50
[2019-07-04 03:46] VITALS: BP 122/52
--- NOTE | 2019-07-04 06:36 | NUR ---
ASSUMED CARE OF PT AT 1900. A&Ox2, PLEASANT. VS STABLE, SR, AFEBRILE. DENIED RESPIRATORY DISTRESS, DENIED PAIN. CONFUSED AT TIMES, PULLED OUT IV AND PULLED OFF TELEMETRY, REPLACED AND PT WAS RE-ORIENTED. DID NOT SLEEP VERY MUCH OVER NOC, HALF HOUR HERE AND THERE, TOTAL AROUND 2-3 HOURS. IV ANTIBX INFUSING ORDERED. PROGRESSING TOWARDS POC GOALS.
[2019-07-04 07:24] VITALS: BP 157/57
--- NOTE | 2019-07-04 12:27 | NUR ---
ON-GOING ASSESSMENT: CM REVIEWED CHART AND SPOKE WITH ATTENDING. PT IS SLOWLY PROGRESSING TOWARDS DISCHARGE GOALS. PT/OT WORKING WITH PATIENT AND PT RECOMMENDING PATIENT CAN RETURN HOME WITH HH. PLANS ARE FOR PATIENT TO RETURN HOME WITH HIS DAUGHTER WITH [facility] ONCE MEDICALLY STABLE. CM WILL CONTINUE TO FOLLOW TO ASSIST NEEDED.
[2019-07-04 12:40] LABS: CALCIUM 8.6 mg/dL (8.5-10.1); CREATININE 1.5 mg/dL (0.7-1.3); POTASSIUM 3.6 mmol/L (3.5-5.1)
[2019-07-04 15:20] VITALS: BP 142/82
--- NOTE | 2019-07-04 17:38 | NUR ---
ASSUMED CARE OF PATIENT AT 0700. VSS. ALERT AND ORIENTED X 3. FORGETFUL, CONFUSED AND IMPULSIVE AT TIMES. PATIENT HAS GOTTEN UP MULTIPLE TIMES REGARDLESS OF FALL REEDUCATION. NSR. ROOM AIR. LUNGS CLEAR/DIMINISHED. CONTINUING TO MONITOR
[2019-07-04 19:13] VITALS: BP 150/60
--- NOTE | 2019-07-05 00:57 | NUR ---
0000 PT C/O SOB, PLACED PT ON 3L O2 SATS 92% CALL PLACED TO RT AND SHE SAID SHE WAS ON 2N AND WOULD COME AFTER SHE FINISHED THAT TX SHE WAS CURRENTLY DOING. FREQUENT CHECKS ON PT IN THE MEANTIME DO INCREASED SOB. AROUND 0036 PT HR WENT TACHY TO 150 BUT DID NOT SUSTAIN, NO CHANGE IN SYMPTOMS. BP TAKEN AND WAS 159/79 REMAINS HTN. CALL PLACED TO EZRA BETTS AND ORDERS RECEIVED. CALL AGAIN TO RT AND SHE SAID SHE WAS NOW ON THE WAY.
[2019-07-05 01:37] LABS: CALCIUM 8.9 mg/dL (8.5-10.1); CREATININE 1.4 mg/dL (0.7-1.3); MAGNESIUM 1.8 mg/dL (1.8-2.4); POTASSIUM 3.6 mmol/L (3.5-5.1)
[2019-07-05 03:33] VITALS: BP 155/80
[2019-07-05 08:00] VITALS: BP 151/61
[2019-07-05] MEDS ORDERED: AUGMENTIN 875-1 EACH PO (08:05)
[2019-07-05] MEDS ORDERED: HUMALOG100 UNIT/1 SUBQ (08:07)
--- NOTE | 2019-07-05 10:36 | NUR ---
ON-GOING ASSESSMENT: CM SPOKE WITH LIASON FROM [facility] WHO STATES PATIENT IS IN HIS COPAY DAYS DUE TO RECENTLY BEING AT [facility] AND HAS A COPAY OF 170/DAY. CM SPOKE WITH PATIENTS DAUGHTER KEISHA AND THEY ARE UNABLE TO AFFORD THAT COPAY. CM SPOKE WITH ATTENDING AND [facility] CONSULT WAS PLACED FOR PT. [facility] IS TO EVAL PT AND CM WILL CONTINUE TO FOLLOW AND AWAIT FOR INPUT FROM [facility].
--- NOTE | 2019-07-05 12:16 | NUR ---
on-GOING ASSESSMENT: MAGDY SPOKE WITH [facility] WHO STATES THEY CAN ACCEPT PATIENT IF FAMILY UNDERSTANDS PATIENT MAY NOT BE ABLE TO DO 13 STEPS AT HOME ONCE DISCHARGING FROM THEM AND WILL LIKELY NEED 24/HR SUPERVISION. MAGDY SPOKE WITH DAUGHTER KEISHA WHO STATES SHE AND HER ARE THERE WITH PATIENT 28/03 AND IF HE IS UNABLE TO DO STEPS AT DISCHARGE THEY WILL MAKE LIVING ARRANGEMENTS FOR HIM ON THE FIRST FLOOR SHE JUST WANTS HIM TO HAVE REHAB WHERE HE IS ABLE TO GET STRONGER BEFORE COMING HOME. CM NOTIFIED HER [facility] LIKELY DOES NOT HAVE A BED UNTIL TOMORROW. PTS DAUGHTER ALSO STATES THAT WHEN PT WAS AT [facility] THEY HELPED HIM APPLY FOR MEDICAID. CM NOTIFIED [facility] IN ATTEMPTS TO VERIFY THIS.
--- NOTE | 2019-07-05 13:46 | NUR ---
Lab called about VRE culture in wrong specimen container. Paola (infection control nurse) spoke with and Paola said the patient will already stay in contact isolation for ESBL in the urine anyway, so it shouldn't be necessary to waste another lab specimen. Paola said she will go speak with lab and let the nurse know of any changes.
[2019-07-05 16:35] VITALS: BP 134/68
--- NOTE | 2019-07-05 19:23 | NUR ---
Assumed care approx. 0700 this AM. Patient intermittently confused, and stating that no doctors have seen him today nor discussed discharge planning; although, this RN was in the room this AM with Dr. Alvarez while she spoke with the patient. 2LNC dc'd and patient on room air with 02 sat check of 95%. Poor appetite noted most of the day, although the patient did well with lunch consumption. Possible discussion of patient discharging to rehab or skilled facility tomorrow. Pts daughter Cheyenne updated on the phone this AM. Patient progressing toward plan of care goals.
[2019-07-05 19:35] VITALS: BP 137/66
[2019-07-06 03:40] VITALS: BP 138/68
--- NOTE | 2019-07-06 07:38 | NUR ---
PT A/O X3, BUT VERY FORGETFUL. REDIRECTED PT OVER AND OVER LAST NIGHT. PT TRIES TO GET OUT OF BED. RETAPED ILL CONDUIT TO BLOOM DRAIN MULTIPLE TIMES. FOLLOWING POC WITH PO ANTIBIOTICS AND VTE PROTOCOL. VSS AND PT HAS NO COMPLAINTS. PT SHOULD DC TO [facility] TODAY.
[2019-07-06 07:57] VITALS: BP 148/74
--- NOTE | 2019-07-06 10:26 | NUR ---
ON-GOING ASSESSMENT: CM REVIEWED CHART. CM SPOKE WITH [facility] WHO STATES THEY CAN ACCEPT PATIENT TO [facility] TODAY. CM NOTIFIED PATIENTS DAUGHTER AND SHE IS AGREEABLE WITH PLAN (SEE PREVIOUS CM NOTE). CM ALSO NOTIFIED ATTENDING. PLANS ARE FOR PATIENT TO GO TO [facility] LATER THIS AFTERNOON.
[2019-07-06] MEDS ORDERED: LANTUS100 UNIT/M SUBQ (10:45)
--- NOTE | 2019-07-06 14:49 | NUR ---
REPORT CALLED TO [address] [place] [address].
== END 2019-07-06 15:11 | DRG 871 ==
LOC: ER 16:57 → 3W 19:06 → EROBS 19:06 → 3W 20:16
PROVIDERS: Emergency Medicine; Nurse Practitioner Acute Care; ADMIT Hospitalist
DX: A41.9 Sepsis, unspecified organism (principal); J18.9 Pneumonia, unspecified organism; G93.41 Metabolic encephalopathy; N39.0 Urinary tract infection, site not specified; N17.9 Acute kidney failure, unspecified; E46 Unspecified protein-calorie malnutrition; F03.90 Unspecified dementia, unspecified severity, without behavioral disturbance, psychotic disturbance, mood disturbance, and anxiety; E86.0 Dehydration; E78.5 Hyperlipidemia, unspecified; I25.10 Atherosclerotic heart disease of native coronary artery without angina pectoris; Z28.21 Immunization not carried out because of patient refusal; D64.89 Other specified anemias; E53.8 Deficiency of other specified B group vitamins; N18.9 Chronic kidney disease, unspecified; R13.10 Dysphagia, unspecified; E11.22 Type 2 diabetes mellitus with diabetic chronic kidney disease; Z95.1 Presence of aortocoronary bypass graft; Z87.891 Personal history of nicotine dependence; Z85.51 Personal history of malignant neoplasm of bladder; Z79.82 Long term (current) use of aspirin; Z79.899 Other long term (current) drug therapy; Z90.6 Acquired absence of other parts of urinary tract; Z93.2 Ileostomy status; Z68.25 Body mass index [BMI] 25.0-25.9, adult; I12.9 Hypertensive chronic kidney disease with stage 1 through stage 4 chronic kidney disease, or unspecified chronic kidney disease
CPT/HCPCS: 10879

== ENCOUNTER 2019-07-06 11:53 | Inpatient (IN) | payer OTHER ==
[~2019-07-06] VITALS: Ht 172.7 cm; Wt 70.8 kg
[~2019-07-06 11:53] MED LIST changes: +HUMALOG100 UNIT/1 SUBQ
[2019-07-06 15:30] VITALS: BP 145/71
--- NOTE | 2019-07-06 16:20 | NUR ---
PT ARRIVED AT 1530 FROM 3W. VITALS REMAIN STABLE. PT DENIES PAIN. BRUISE ON RIGHT ARM AND ABRASION ON LEFT KNEE FROM A FALL. ILLEOCONDUIT REMAINS INTACT AND PATENT, URINE IS LIGHT YELLOW AND CLEAR. IV ON LEFT FOREARM REMAINS INTACT AND PATENT. MONITORING WITH MEALS R/T ASPIRATION PRECAUTIONS. ISOLATION PRECAUTIONS MAINTAINED. UP WITH 1 MIN-MOD ASSIST, GB AND WALKER. Q1H VISUAL CHECKS. CALL LIGHT WITHIN REACH. FALL PRECAUTIONS IN PLACE
[2019-07-06 19:30] VITALS: BP 151/77
--- NOTE | 2019-07-07 04:24 | NUR ---
assumed care at approx 1900 evening 07/06. pt confused and impulsive at beginning of shift however fell asleep shortly after risperidone given. pts urostomy emptied before he fell asleep. pt slept until approx 2300 when he woke up confused and urostomy bag clamp leaking. assisted with pad and gown change. pt given hs meds with applesauce tolerating well. pt with poor appetite and remain confused until falling asleep again. pt appears to be sleeping soundly at present. bed alarm on and call light in reach. will continue to monitor.
[2019-07-07 08:02] LABS: HEMATOCRIT 33.8 % (42.0-52.0); HEMOGLOBIN 11.1 gm/dL (14.0-18.0); MCHC 32.7 g/dL (28.0-37.0); MCV 82.7 fL (80.0-100.0); RBC 4.09 mil/uL (4.50-6.00); RDW 16.8 % (10.5-14.5); WBC 5.4 thou/uL (4.0-11.0)
[2019-07-07 08:15] LABS: CALCIUM 8.6 mg/dL (8.5-10.1); CREATININE 1.2 mg/dL (0.7-1.3); POTASSIUM 3.5 mmol/L (3.5-5.1)
[2019-07-07 10:23] VITALS: BP 125/42
--- NOTE | 2019-07-07 13:26 | NUR ---
ASSUMED CARES AT 0700. PT ORIENTED TO PERSON AND PLACE ONLY, CONFUSED AND FORGETFUL. STATED THAT HE WAS WAITING FOR HIS DAUGHTER TO TAKE HIM HOME THIS AM, DAUGHTER AND SON-IN-LAW HERE TO VISIT AND THEY EXPLAINED TO HIM WHY HE WAS HERE AND WHAT HE NEEDS TO DO TO GET BETTER. PT VERY IMPULSIVE AND AGITATED, RISPERDOL ADMINISTERED NEEDED. PT DENIES PAIN. VITALS REMAIN INTACT. ILLEOCONDUIT REMAINS INTACT AND PATENT, URINE IS LIGHT YELLOW AND CLEAR. PT PARTICIPATED IN ALL THERAPIES AND TOLERATED WELL. FREQUENT VISUAL CHECKS. CALL LIGHT WITHIN REACH. FALL PRECAUTIONS IN PLACE
[2019-07-07 21:00] VITALS: BP 112/73
--- NOTE | 2019-07-08 01:41 | NUR ---
pt getting up out of bed complaining of urostomy bag leaking and wet on gown and linens. pt assisted with bag change, gown and linen change. pt tolerated well and back to bed now appears to be sleeping soundly and bag not leaking, pt dry. bed alarm on and call light in reach. will continue to monitor.
--- NOTE | 2019-07-08 18:07 | NUR ---
ASSUMED CARE OF PT AT 0715. PT IS A&OX2, CONFUSED, AGITATED, ANXIOUS, AND IMPULSIVE. PT FREQUENTLY UP WITHOUT CALLING FOR STAFF ASSISTANCE. PT STATES THAT HE DOES NOT WANT TO BE "HERE" AND THAT NURSING NEEDS TO CALL FAMILY TO PICK HIM UP BECAUSE THEY DON'T KNOW HE IS IN THE HOSPITAL. DAUGHTER WAS CALLED AND NOTIFIED OF PT REQUESTS TO LEAVE THE HOSPITAL AND DAUGHTER SPOKE TO PT ON PHONE. PT GIVEN PRN MEDICAITONS FOR AGITATION AND DID CALM DOWN IN AFTERNOON AND SLEPT IN CHAIR. ACCU CHECK ACHS AND MANAGED WITH INSULIN. INSULIN HELD AT LUNCH DUE TO PT REFUSAL TO EAT MEAL TRAY WHEN TOLD BY FAMILY THAT HE WOULD BE UNABLE TO LEAVE THE HOSPITAL TODAY. PT CONTINUES TO BE IMPULSIVE THROUGHOUT SHIFT AND MAKES NO ATTEMPT TO CALL STAFF DESPITE NURSE EDUCATING PT MULTIPLE. TIMES. ORDERS TO SCHEDULE AGITATION MEDICAITON BID. FALL PRECAUTIONS IN PLACE AND NURSING WILL CONTINUE TO MONITOR.
[2019-07-08 19:55] VITALS: BP 123/71
--- NOTE | 2019-07-09 05:08 | NUR ---
ASSUMED PT CARE AT 1900. PT A/O TO SELF AND PLACE OCCASSIONALLY. CONFUSED AND IMPULSIVE. CONTACT PRECAUTIONS MAINTAINED. NO COMPLAINTS OF PAIN. UROSTOMY IN PLACE. OUTPUT RECORDED. PT FORGETS LIMITATIONS. CLOSE TO NURSING STATION. RESTYED WELL THROUGH THE NIGHT. PROGRESSING TOWARD PLAN OF CARE. WILOL CONTINUE TO MONITOR.
[2019-07-09 09:45] VITALS: BP 146/64
--- NOTE | 2019-07-09 10:59 | NUR ---
ASSUMED PT CARE AT 0730. VSS ON RA. BS WAS 66 THIS AM. GAVE APPLE JUICE. PT ATE ALL HIS BREAKFAST. RECHECK BS 94. PT ALERT AND ORIENTED X4, FORGETFUL. PT IS GETTING ALONG WITH THIS VAN DRIVER HELPER. DISCUSSED ABOUT CARE PLAN AND ENCOURAGED PT TO FOLLOW UP WITH THERAPY TODAY. DISCUSSED ABOUT FALL PRECAUTION AND PT PROMISES HE WILL CALL BEFORE GET UP. CONTACT PRECAUTIONS MAINTAINED. UROSTOMY INTACT WITH RACHAEL CLEAR URINE. OUTPUT RECORDED THROUGH THE SHIFT. REASSESSMENT PER CHART. LUNG SOUND CLEAR, BS PRESENT. DENIES CONSTIPATION. COMPLAINTS OF PAIN. UROSTOMY IN PT FORGETS LIMITATIONS. CLOSE TO NURSING STATION. PT UP WITH SBA/GB/WALKER. OFFERED SUPPORTIVE CARE. MORNING MEDS GIVEN WITH APPLE SAUCE. FALL PRECAUTION IN PLACE. WILL CONTINUE TO MONITOR.
--- NOTE | 2019-07-09 12:44 | NUR ---
Nutrition: Pt admitted with acute metabolic encephalopathy, sepsis, dysphagia and seen due to consult stating poor po intake. Observed pt eating very well during visit and po intake documented as 75-100% most meals. Pt enjoys the ensure pudding supplement which he receives once daily. ST follows for mild to moderate dysphagia. BG 66-197. Noted lantus D/C'ed due to erratic po (did refuse one meal yesterday). RD adding carb controlled to diet order also. Noted pt with prior weight loss from 220# 2 years ago however weights have remained stable now for several months. 155-160#. Pt voices no complaints related to meals. Consider low nutrition risk for now.
--- NOTE | 2019-07-09 13:09 | NUR ---
chart review. pt lives with daughter laisha. has leslie espinosa in shower. 4 steps enter with hand rail and 9 steps up to bedroom. had [facility] home [facility] in past. been to centers in past as well. will cont following as needed for dc needs.
[2019-07-09 20:10] VITALS: BP 140/70
--- NOTE | 2019-07-10 00:55 | NUR ---
ASSESSMENT COMPLETED. PT IS ALERT TO SELF AND PLACE. HE IS FORGETFUL. BEEN IMPULSIVE MOST OF THE NIGHT. DENIES PAIN. WAS ABLE TO TAKE MEDS WELL WITH APPLESAUCE.UROSTOMY WITH GOOD U/O.PT USES WALKER TO AMBULATE.FALL PREC IN PLACE.
[2019-07-10 07:28] VITALS: BP 142/59
--- NOTE | 2019-07-10 07:44 | NUR ---
ASSUMED PT CARE AT 0700. VSS ON RA. BS WAS 87 THIS AM. DENIES PAIN. UP TO BATHROOM WITHOUT CALLING, ALARM IS ON. PT ABLE TO DO MORNING HYGIENE IN BATHROOM WITH SUPERVISION. STEADY ON HIS GAIT WITH AND WITHOUT A WALKER. PT ALERT AND ORIENTED X4, FORGETFUL. IS GETTING ALONG WITH THIS ALUMINUM POOL INSTALLER. DISCUSSED ABOUT CARE PLAN AND ENCOURAGED TO FOLLOW UP WITH THERAPY TODAY. DISCUSSED ABOUT FALL PRECAUTION AND PT PROMISES HE WILL CALL BEFORE GET UP. CONTACT PRECAUTIONS MAINTAINED. UROSTO INTACT WITH RACHAEL CLEAR URINE. DEMONSTRATE PT HOW TO EMPTY IT. HAS 150CC OUT NOW. WILL CONTINUE TO MONTIOR OUTPUT RECORDED THROUGH THE SHIFT. REASSESSMEN PER CHART. LUNG SOUND CLEAR, BS PRESENT. LAST BM WAS 3 DAYS AGO. WILL GIVE PRN COLACE AND MONITOR BM. PT FORGETS LIMITATIONS. CLOSE TO NURSING STATION. PT UP WI SBA/GB/WALKER. OFFERED SUPPORTIVE CARE. MORNING MEDS GIVEN WITH APPLE SAUCE. FALL PRECAUTION IN PLACE. WILL CONTINUE TO MONITOR.
--- NOTE | 2019-07-10 14:08 | NUR ---
team meeting recommendation: 8th with intermit supervision with meal. mech soft with nectar thick liquids. check with daughter to see how much time he will be alone. hh ( pt, ot, st ,nursing).
[2019-07-10 19:50] VITALS: BP 119/53
--- NOTE | 2019-07-11 03:19 | NUR ---
ASSUMED CARE OF PT @ 1900 PT ASSESSED AT START OF SHIFT A&OX3 WITH CONFUSION. GETS UP FROM BED WITHOUT CALLING FALL PREC INPLACE DUE TO WEAKNESS IN MOBILITY. UROSTOMY INTACT DRAINED OUT 125ML AT MIDNIGHT WILL CONT TO MONITOR OUTPUT. TAKES MEDS WITH APPLE SAUCE. ISOLATION MAINTAINED FOR VRE NON RESP. BLOOD SUGAR CHECKS AND BED TIME INSULIN GIVEN. APPLE SAUCE AND SUPLEMENT CUP GIVEN BEFORE BED FOR SNACK. PT STATES HES READY TO GO HOME THIS NURSE INFORMS PT THAT D/C IS NOT SET YET. PT EASILY REDIRECTABLE. ROOM INFRONT OF NURSES STATION, FREQ ROUNDING DONE AND WILL CONT WITH POC TILL EOS.
[2019-07-11 07:13] VITALS: BP 139/71
--- NOTE | 2019-07-11 10:23 | NUR ---
DISCHARGE PLANNING. ANTICIPATED DISCHARGE TO HOME 07/13 PER UNIT CM. HOME HEALTH RECOMMENDED AT DISCHARGE. PATIENT REFERRAL FAXED TO [facility] PER REQUEST. CALL PLACED TO [facility] TO NOTIFY. JULIETTE TO REVIEW AND CONTACT CM. FOLLOWING.
--- NOTE | 2019-07-11 10:53 | NUR ---
ASSUMED CARES AT 0700. PT AWAKE, ALERT AND ORIENTED*2. CONFUSED AND FORGETFUL. IMPULSIVE. VITALS REMAIN STABLE. DENIES PAIN. UROSTOMY REMAINS INTACT AND PATENT WITH YELLOW CLEAR URINE. ISOLATION PRECAUTIONS MAINTAINED. PT REMAINS ON ASPIRATION PRECAUTIONS, ON NECTAR THICK FLUIDS. FALL PRECAUTIONS IN PLACE, ROOM NEAR NURSE'S DESK. FREQUENT VISUAL CHECKS
[2019-07-11 20:02] VITALS: BP 131/67
--- NOTE | 2019-07-12 04:33 | NUR ---
assumed care at approx 1900 evening 07/11. pt sitting in recliner at change of shift very impulsive getting up and walking around in his room despite repeated instruction to call staff for assistance. pt pleasantly confused needing redirection several times. pt assisted with gown at hs and did take hs meds with no problems. pt c/o cough and order recd for cough med. since given pt has been sleeping more soundly. bed alarm on and call light in reach. will continue to monitor.
--- NOTE | 2019-07-12 08:07 | NUR ---
OSTOMY CARE called to see pt as pouch was leaking and removed, no supplies in room, jamin 1 09/12' urostomy convex pouch applied, pt states he is familiar w/ jamin products and uses this kind at home, stoma pinkish red viable slightly budded, clear yellow urine noted, peristomal skin intact, supplies placed at bs w/ adaptor to connect to night time drainage system if pt/staff desires, engineer technical staff informed of care
[2019-07-12 10:38] VITALS: BP 131/71
--- NOTE | 2019-07-12 18:09 | NUR ---
ASSUMED CARE OF PT AT 0715. PT IS A&OX2-3, CONFUSED, AND VITAL SIGNS ARE STABLE. PT IS IMPULSIVE AND REQURES FREQUENT OBSERVATION. PT NON-COMPLIANT WITH FALL PRECAUTIONS. PT DENIES PAIN AND PARTICIPATED IN SCHEDULED THERAPIES. PLANS FOR DISCHARGE TOMORROW. FALL PRECUATIONS IN PLACE. ACCU CHECKS ACHS AND MANAGED WITH INSULIN. FALL PRECAUTIONS IN PLACE AND NURSING WILL CONTINUE TO MONITOR.
[2019-07-12 21:06] VITALS: BP 126/59
--- NOTE | 2019-07-13 02:46 | NUR ---
RECEIVED REPORT FROM OFFGOING DAY NURSE, ASSUMED CARE @ 19:20 ON 07/12/19. VS STABLE, A&OX2-3 PATIENT IS IMPULSIVE WITH STANDING AND WALKING WITHOUT CALLING FOR ASSISTANCE. REPEATS IMPULSIVELY STANDING, DESPIRTE DISCUSSION WITH STAFF TO SAFETY. UROSTOMY BAG INTACT, DRAINING CLEAR YELLOW URINE TO GRAVITY. @ HS, BLOOM LINE AND BAG ATTACHED, AND CONTINUES TO DRAIN CLEAR YELLOW URINE TO GRAVITY. NECTAR THICK LIQUIDS PROVIDED WITH HS MEDS, WHICH PT REQUESTED TO BE GIVEN IN APPLESAUCE. ACCUCHECK TAKEN AND INSULIN GIVEN PER SLIDING SCALE. FALL PRECAUTIONS IN PLACE. BED IN LOW POSITION, BED ALARM SET, WILL CONTINUE TO MONITOR Q 1 HOUR FOR PATIENT SAFET.
[2019-07-13 08:36] VITALS: BP 118/54
[2019-07-13 11:39] LABS: HEMOGLOBIN 12.6 gm/dL (14.0-18.0); MCH 26.9 pg (26.0-34.0); MCHC 32.4 g/dL (28.0-37.0); MCV 83.1 fL (80.0-100.0); RBC 4.7 mil/uL (4.50-6.00); RDW 17.4 % (10.5-14.5); WBC 8.7 thou/uL (4.0-11.0)
[2019-07-13 11:44] LABS: CALCIUM 9.2 mg/dL (8.5-10.1); CREATININE 1.3 mg/dL (0.7-1.3)
--- NOTE | 2019-07-13 12:41 | NUR ---
chau sent message to md to see about getting completed dc order. left message with daughter laisha to see what time she is planning on picking up balta today. dc home with tom velez.
[2019-07-13] MEDS ORDERED: RISPERIDONE 00.25 M1 PO (14:58)
[2019-07-13] MEDS ORDERED: LANTUS SUBQ (14:59)
[2019-07-13 15:07] VITALS: BP 131/71
--- NOTE | 2019-07-13 17:07 | NUR ---
ASSUMED CARE OF PT AT 0715. PT IS A&OX2-3, FORGETFUL, IMPULSIVE AND RESTLES, VITAL SIGNS ARE STABLE. ORDERS FOR PT TO DISCHARGE HOME WITH HH TODAY. PT DENIES PAIN. AMBULATING WITH STAFF AND IN DINING ROOM FOR MEALS. UROSTOMY IN PLACE AND DRAINING APPROPRIATELY. ISOLATION FOR VRE IN URINE. NO COUGH NOTED THIS SHIFT. ACCU CHECKS ACHS AND MANAGED WITH INSULIN. DISCHARGE INSTRUCTIONS, EDUCATION, AND MEDICATIONS GIVEN. DAUGHTER ON UNIT WITH PT FOR DISCHARGE. BELONGINGS REMOVED FROM ROOM BY DAUGHTER. DISCHARGE PAPERS SIGNED BY DAUGHTER AT 1545 AND PT AND DAUGHTER ASSISTED TO MEDICAL MALL BY [facility]SPORT AT 1600.
--- NOTE | 2019-07-16 09:34 | NUR ---
CALL RECEIVED FROM [facility]TA[facility]IA[facility]. [facility]UL[facility]ETTE [facility]IV[facility] DID NOT RECEIVED PATIENTS DISCHARGE/HH ORDERS AT DISCHARGE. [facility] STATES SHE CALLED THE UNIT TO SEE IF SHE COULD HAVE THE UNIT RN FAX HER DISCHARGE/HH ORDERS. [facility] UNIT RN STATED THAT HE COULD NOT ACCESS PATIENTS ORDERS AND WAS UNABLE TO OBTAIN DISCHARGE/HH ORDERS OVER THE WEEKEND. DISCHARGE/HH ORDERS FAXED TO JULIETTE THIS AM.
--- NOTE | 2019-07-17 12:00 | PLAN ---
[facility] [place] [address] REHAB UNIT PLAN OF CARE Name: GERMAIN YADAV Room #: 504-1 DIS IN M.R.#: [id number] Admission: 07/06/19 Attend Phys: Ashish Llamas MD Discharge: 07/13/19 Date of : 32 Report #: [id number] THIS REPORT FOR: //name// CC: Ahsish Merinoh Basilio DATE OF SERVICE: 07/09/2019 PROGRESS NOTE/OVERALL OF CARE SUBJECTIVE: The patient seen back today in followup. He is in no distress. Temperature 97.5, pulse 64, respirations 20, blood pressure 123/71. He is working in therapies with transfers, contact guard assistance. Gait contact guard assistance, 200 feet with a front-wheeled walker. He is going up and down 12 steps with contact guard assistance. In occupational therapy, lower body dressing is min assist. In speech therapy, he is on a mechanical soft diet with nectar thickened liquids. ASSESSMENT: 1. Toxic metabolic encephalopathy. 2. Sepsis secondary to urinary tract infection and pneumonia. 3. Dysphagia. 4. Medical complexity with generalized debilitation. 5. Recurrent falls. 6. History of premorbid dementia, nevertheless living in the community with family. 7. Mild acute renal insufficiency superimposed on chronic kidney disease. 8. Type 2 diabetes mellitus. 9. Hypertension. PLAN: The overall plan of care is based on the preadmission screen, post-admission physician evaluation and information garnered from therapy assessments. 1. Estimated length of stay is probably 7-14 days pending progress. 2. Medical prognosis is reasonably good. 3. Anticipated interventions includes the interdisciplinary acute inpatient rehabilitation program. 4. Anticipated functional outcomes would be for the patient to become modified independent with transfers, mobility, ADLs, cognition and swallowing, so that he can return back to the home setting. 5. Discharge destination would be back home where he lives with family. 6. Expected therapy by discipline includes PT, OT and speech 1 hour per day [address] [address] REHAB UNIT PLAN OF CARE Name: GERMAIN YADAV EITAN Room #: 504-1 [facility] [place] ..#: [id number] Admission: 07/06/19 Attend Phys: Ashish Llamas MD Discharge: 07/13/19 Date of : 32 Report #: [id number] each five days a week throughout the duration of the acute inpatient rehabilitation stay. <ELECTRONICALLY SIGNED> By: Ashish Llamas MD 07/17/19 1200 0828 1059 Ashish Llamas MD /nt
--- NOTE | 2019-07-17 12:00 | H ---
[facility] [place] [address] HISTORY AND PHYSICAL Name: GERMAIN YADAV Room #: 504-1 [facility] IN M.R.#: [id number] Admission: 07/06/19 Attend Phys: Ashish Llamas MD Discharge: 07/13/19 Date of : 32 Report #: [id number] THIS REPORT FOR: //name// CC: [facility]ish [facility] DATE OF SERVICE: 07/06/2019 HISTORY AND PHYSICAL/POST-ADMISSION PHYSICIAN EVALUATION HISTORY OF PRESENT ILLNESS: The patient is an 88-year-old male who has been admitted for acute in-hospital inpatient rehabilitation. Please see the full history and physical. I agree with the examination findings. ASSESSMENT AND PLAN: All as noted in the history and physical. He was originally admitted with worsening mentation, falls, tremors, diagnosed with sepsis due to UTI and pneumonia, was noted to have an acute encephalopathy. Past medical history, allergies, social history, habits, please see the history and physical. He had been living in the community with his , daughter and son-in-law. MEDICATIONS: Please see the full medication listing. REVIEW OF SYSTEMS: No current complaints of chest pain, shortness of breath or abdominal discomfort. PHYSICAL EXAMINATION: GENERAL: Pleasant 88-year-old white male in no obvious distress. VITAL SIGNS: Last recorded temperature 97.3, pulse 60, respirations 20, blood pressure is 125/42. The patient is alert, pleasant, and talkative. HEAD, EYES, EARS, NOSE, AND THROAT: Facies are symmetric. CHEST: Sounded clear to auscultation. CARDIOVASCULAR: Regular rate and rhythm. ABDOMEN: Bowel sounds positive, nontender. GENITOURINARY AND RECTAL: Deferred. No calf swelling. EXTREMITIES: At least a grade 4-/5 upper and lower extremities. Min assist with basic transfers prior to admission to the rehab singleton. SKIN: Normal color some scabbing from his falls. NEUROLOGIC: There is some delay to his answers and cognitive processing. ASSESSMENT: 1. Toxic metabolic encephalopathy. 2. Sepsis secondary to urinary tract infection and pneumonia. 3. Dysphagia. 4. Medical complexity with generalized debilitation. [facility] [address] [place] [address] HISTORY AND PHYSICAL Name: GERMAIN YADAV Room #: 504-1 [facility] IN M.R.#: [id number] Admission: 07/06/19 Attend Phys: Ashish Llamas MD Discharge: 07/13/19 Date of : 32 Report #: [id number] 5. Prior leukocytosis. 6. Recurrent falls. 7. History of some dementia premorbidly. Nevertheless, living in the community with family. 8. Mild acute renal insufficiency superimposed on chronic kidney disease. 9. Type 2 diabetes mellitus. 10. Hypertension. PLAN: The patient has been admitted for acute in-hospital inpatient rehabilitation. From a postadmission physician evaluation perspective, there are no relevant changes since the preadmission screening. Please see the above review of prior and current medical and functional conditions and comorbidities. Please see the patient's previous and current functional status. As far as risk of complications, the patient has multiple medical comorbidities as noted above. The initial plan of care involves the interdisciplinary acute inpatient rehabilitation program. Measurable functional goals would be for the patient to become modified independent with transfers, mobility, ADLs and cognition, so that he can return back to the home setting. Prognosis is reasonably good with estimated length of stay probably 10-14 days. Potential barriers would include his multiple medical comorbidities and decreased functional status. <ELECTRONICALLY SIGNED> By: Ashish Llamas MD 07/17/19 1200 0914 1052 Ashish Llamas MD /[facility]
== END 2019-07-13 15:45 | disposition home health service (06) | DRG 91 ==
PROVIDERS: Nurse Practitioner Family; ADMIT Physical Medicine & Rehabilitation
DX: G92 Toxic encephalopathy (principal); A41.9 Sepsis, unspecified organism; J18.9 Pneumonia, unspecified organism; N39.0 Urinary tract infection, site not specified; N17.9 Acute kidney failure, unspecified; F01.51 Vascular dementia, unspecified severity, with behavioral disturbance; R13.10 Dysphagia, unspecified; H54.62 Unqualified visual loss, left eye, normal vision right eye; R29.6 Repeated falls; I12.9 Hypertensive chronic kidney disease with stage 1 through stage 4 chronic kidney disease, or unspecified chronic kidney disease; E11.22 Type 2 diabetes mellitus with diabetic chronic kidney disease; R53.81 Other malaise; E78.5 Hyperlipidemia, unspecified; I27.21 Secondary pulmonary arterial hypertension; N18.2 Chronic kidney disease, stage 2 (mild); D64.89 Other specified anemias; I25.10 Atherosclerotic heart disease of native coronary artery without angina pectoris; Z95.1 Presence of aortocoronary bypass graft; Z85.51 Personal history of malignant neoplasm of bladder; Z87.891 Personal history of nicotine dependence; Z23 Encounter for immunization; Z79.899 Other long term (current) drug therapy; Z79.82 Long term (current) use of aspirin; Z79.4 Long term (current) use of insulin; Z90.79 Acquired absence of other genital organ(s)
CPT/HCPCS: 10112

== ENCOUNTER 2019-08-17 14:58 | Emergency (ER) | payer MEDICARE, OTHER ==
[~2019-08-17] VITALS: Ht 172.7 cm; Wt 74.8 kg
[~2019-08-17 14:58] MED LIST changes: +LANTUS SUBQ; +RISPERIDONE 00.25 M1 PO
[2019-08-17 15:42] LABS: HEMATOCRIT 43.4 % (42.0-52.0); HEMOGLOBIN 14.2 gm/dL (14.0-18.0); MCH 27.6 pg (26.0-34.0); MCHC 32.8 g/dL (28.0-37.0); MCV 84.1 fL (80.0-100.0); RBC 5.15 mil/uL (4.50-6.00); RDW 17.9 % (10.5-14.5); WBC 6.3 thou/uL (4.0-11.0)
[2019-08-17 15:43] LABS: URINE BILIRUBIN NEGATIVE (Negative); URINE BLOOD NEGATIVE (Negative); URINE CLARITY CLOUDY; URINE COLOR YELLOW; URINE GLUCOSE-RANDOM* NEGATIVE (Negative); URINE KETONES NEGATIVE (Negative); URINE LEUKOCYTES-REFLEX 1+ (Negative); URINE NITRITE-REFLEX POSITIVE (Negative); URINE PROTEIN (DIPSTICK) 2+ (Negative); URINE SPECIFIC GRAVITY 1.015 (1.005-1.035); URINE UROBILINOGEN 0.2 E.U./dl (0.2-1.0)
[2019-08-17 15:50] LABS: CALCIUM 9.4 mg/dL (8.5-10.1); CREATININE 1.7 mg/dL (0.7-1.3)
[2019-08-17 16:18] LABS: SQUAMOUS None Seen /LPF (0-3)
[2019-08-17 16:19] LABS: BACTERIA-REFLEX >30 Many /HPF (None Seen); CASTS None Seen /LPF (None Seen); URINE RBC None Seen /HPF (0-2); URINE WBC-REFLEX 6-15 Few /HPF (0-5)
[2019-08-17 16:20] LABS: AMORPHOUS PHOSPHATES Few /LPF (None Seen); TRIPLE PHOSPHATE CRYSTALS 4-10 Moderate /LPF (None Seen)
[2019-08-17] MEDS ORDERED: TRAMADOL 50 MG50 MG PO (17:11)
[2019-08-17 17:26] VITALS: BP 140/74
== END 2019-08-17 17:40 | disposition home or self-care (01) ==
LOC: ER 14:58
PROVIDERS: Emergency Medicine
DX: N48.89 Other specified disorders of penis (principal); R82.71 Bacteriuria; I25.10 Atherosclerotic heart disease of native coronary artery without angina pectoris; I12.9 Hypertensive chronic kidney disease with stage 1 through stage 4 chronic kidney disease, or unspecified chronic kidney disease; E11.22 Type 2 diabetes mellitus with diabetic chronic kidney disease; N18.9 Chronic kidney disease, unspecified; E78.5 Hyperlipidemia, unspecified; Z93.6 Other artificial openings of urinary tract status; Z87.891 Personal history of nicotine dependence; Z79.899 Other long term (current) drug therapy; Z79.4 Long term (current) use of insulin; Z95.1 Presence of aortocoronary bypass graft

== ENCOUNTER 2019-08-19 12:02 | Inpatient (IN) | payer OTHER ==
[~2019-08-19] VITALS: Ht 172.7 cm; Wt 71.2 kg
[~2019-08-19 12:02] MED LIST changes: +TRAMADOL 50 MG50 MG PO
[2019-08-19 12:03] VITALS: BP 128/72
[2019-08-19 13:07] LABS: URINE BILIRUBIN NEGATIVE (Negative); URINE BLOOD NEGATIVE (Negative); URINE COLOR YELLOW; URINE GLUCOSE-RANDOM* NEGATIVE (Negative); URINE KETONES NEGATIVE (Negative); URINE PROTEIN (DIPSTICK) 2+ (Negative); URINE UROBILINOGEN 0.2 E.U./dl (0.2-1.0)
[2019-08-19 13:08] LABS: URINE CLARITY HAZY; URINE LEUKOCYTES-REFLEX 2+ (Negative); URINE NITRITE-REFLEX POSITIVE (Negative)
[2019-08-19 13:08] LABS: CALCIUM 9.4 mg/dL (8.5-10.1); CREATININE 1.4 mg/dL (0.7-1.3); POTASSIUM 4.3 mmol/L (3.5-5.1)
[2019-08-19 13:14] LABS: ALBUMIN 3.2 g/dL (3.4-5.0); DIRECT BILIRUBIN 0.1 mg/dL (<0.1-0.2); TOTAL BILIRUBIN 0.6 mg/dL (<0.1-1.0); TOTAL PROTEIN 7.3 g/dL (6.4-8.2)
[2019-08-19 13:19] LABS: CASTS None Seen /LPF (None Seen); SQUAMOUS None Seen /LPF (0-3)
[2019-08-19 13:20] LABS: TRIPLE PHOSPHATE CRYSTALS 4-10 Moderate /LPF (None Seen)
[2019-08-19 13:21] LABS: BACTERIA-REFLEX >30 Many /HPF (None Seen); URINE RBC None Seen /HPF (0-2); URINE WBC-REFLEX 6-15 Few /HPF (0-5)
[2019-08-19 13:25] LABS: ABSOLUTE NEUTROPHILS 4.1 thou/uL (1.4-8.2); BASOPHILS 0.4 % (0.0-2.0); EOSINOPHILS 1.3 % (0.0-3.0); HEMATOCRIT 40.6 % (42.0-52.0); HEMOGLOBIN 12.9 gm/dL (14.0-18.0); LYMPHOCYTES 22.7 % (24.0-44.0); MCH 27.2 pg (26.0-34.0); MCHC 31.9 g/dL (28.0-37.0); MCV 85.4 fL (80.0-100.0); MONOCYTES 8.9 % (1.0-8.0); PLATELET COUNT 186 thou/uL (150-400); POLYS 66.7 % (36.0-66.0); RBC 4.75 mil/uL (4.50-6.00); RDW 17.7 % (10.5-14.5); WBC 6.1 thou/uL (4.0-11.0)
[2019-08-19 14:03] VITALS: BP 133/71
[2019-08-19 14:53] LABS: ALBUMIN 3.2 g/dL (3.4-5.0); TOTAL PROTEIN 7.4 g/dL (6.4-8.2)
[2019-08-19 15:31] VITALS: BP 145/63
[2019-08-19 15:45] LABS: TSH 1.909 uIU/mL (0.358-3.740)
[2019-08-19 17:23] VITALS: BP 132/68
--- NOTE | 2019-08-19 18:28 | NUR ---
PATIENT ARRIVED FROM ED AT 1445, ALERT AND ORIENTED BUT FORGETFUL. ADMISSION COMPLETED, SPOKE WITH PATIENT DAUGHTER KEISHA AND UPDATED HER IN HIS CONDITION. VSS AND SR ON THE MONITOR. WILL CONTINUE WITH POC.
[2019-08-19 20:33] VITALS: BP 108/66
[2019-08-20 03:06] LABS: GLYCOHEMOGLOBIN (HGB A1C) 6.5 % (4.8-5.6)
[2019-08-20 03:59] VITALS: BP 135/56
--- NOTE | 2019-08-20 06:15 | NUR ---
ASSUMED PT CARE AROUND 1900. PT VSS. PT HAS NO C/O N/V/D. PT AOX4 BUT FORGETFUL AT TIMES. PT SLEPT THRU NIGHT WITH MINIMAL INTERRUPTIONS. PT ASSESSMENT CHARTED AND PT PROGRESSING TOWARDS POC. WILL CONTINUE TO MONITOR.
[2019-08-20 08:00] VITALS: BP 146/72
--- NOTE | 2019-08-20 10:12 | NUR ---
OSTOMY CARE pt states he changes pouch evry 3-4 days, did not bring urostomy supplies to hosp, changed today using jamin one inch precut convex #8484, states he does not connect to dep drainage at hs, stoma red viable budded, peristomal skin intact, clear yellow urine present, cooperative, supplies left at bs, will follow prn RECOMMENDATIONS rt urostomy care q 3-4 days w/ jamin pouch #8484, chief of staff doctor informed
[2019-08-20 12:25] VITALS: BP 131/61
[2019-08-20 16:00] VITALS: BP 131/72
--- NOTE | 2019-08-20 19:00 | NUR ---
ASSUMED CARE 0700. ALERT X4, FORGETFULL WITH HX OF ALZHIEMER. DENIES PAIN BUT ADMITTED TO DR GRAHAM HE HAD PENIAL PAIN. DECLINED PAIN MEDICATIONS. SELF CARE WITH UROSTOMEY. NO BM NOTED TODAY. WILL NOT CALL FOR ASSISTANCE. MOVED CLOSER TO NURSES STATION FOR OVERSITE. CALL LIGHT IN REACH. COMPLAIN WITH CARES. NSR ON TELE. FALL PRECAUTIONS IN PLACE.
[2019-08-20 20:00] VITALS: BP 143/64
[2019-08-21 04:00] VITALS: BP 153/71
[2019-08-21 07:20] VITALS: BP 148/84
[2019-08-21 07:47] LABS: HEMATOCRIT 39.8 % (42.0-52.0); HEMOGLOBIN 12.8 gm/dL (14.0-18.0); MCH 27.5 pg (26.0-34.0); MCHC 32.2 g/dL (28.0-37.0); MCV 85.3 fL (80.0-100.0); RBC 4.66 mil/uL (4.50-6.00); RDW 17.7 % (10.5-14.5); WBC 7.6 thou/uL (4.0-11.0)
[2019-08-21 07:53] LABS: CALCIUM 9.3 mg/dL (8.5-10.1); CREATININE 1.5 mg/dL (0.7-1.3); MAGNESIUM 1.9 mg/dL (1.8-2.4); POTASSIUM 3.9 mmol/L (3.5-5.1)
--- NOTE | 2019-08-21 08:03 | NUR ---
ALERT,ANSWERS QUESTIONS AT THE BEGINNING OF THE SHIFT.GRADUALLY PATIENT BECAME CONFUSED AT NIGHT TRYING TO LEAVE THE HOSPITAL AND WANTS TO HIT THE NURSES.SECURITY WAS HERE.HALDOL GIVEN BY THE DERRICK BUILDER.PATIENT PULLED HIS UROSTOMY BAG THIS MORNING.MONITOR SHOWS SINUS RHYTHM.
--- NOTE | 2019-08-21 08:14 | NUR ---
OSTOMY CARE night RN states pt was confused last linnette and took urostomy pouch off, RN applied guaze and abd pad over stoma, supplies were in the room, convex 1' jamin urostomy pouch reapplied, pt awake and cooperative but confused, suggested to connect pouch to dep drainage system at hs so as to not have to empty appliance so often, pt states he does not do this at home and prefers to just get up and empty pouch when needed, reminded to not get out to bed w/out assist, more supplies left in room
[2019-08-21 10:40] VITALS: BP 138/75
--- NOTE | 2019-08-21 14:54 | NUR ---
met with patient who has some confusion he reports his dtr kalin is a Rn here. Sp with patients dtr. patient resides in independent home one steps to enter home. 4 steps inside 10 steps to basement. Dtr reports patient independent with walking at home and uses walker in community. Therapy evals in process who recommend HH at [place]. Patient prev rec [facility] who came to home and reported patient did not need HH. Dtr open to another HH agency and agreeable to [facility].
[2019-08-21 16:30] VITALS: BP 139/83
--- NOTE | 2019-08-21 18:01 | NUR ---
DISCUSSED WITH PT'S RN THAT PIV NOT LASTING AFTER SPEAKING TO DR WOODARD REQUESTED MIDLINE. DISCUSSED BENEFITS AND RISK WITH PT ,VERBALIZED UNDERSTANDING AND GAVE CONSENT. RUBI BASILIC WAS WIDELY PATENT WITH USG 4FR POWER MIDLINE TRIMMED TO 11CM INSERTED TO 0CM WITH BRISK BLOOD RETURN. ML RELEASED FOR IMMEDIATE USE TO OMAR MUIR PER PROTOCOL.
--- NOTE | 2019-08-21 18:03 | NUR ---
ASSUMMED PT CARE AT APPROXIMATELY 0700. PT AWAKE AND ORIENTED TO PERSON, PLACE, AND TIME. PT C HX OF DEMENTIA. FREQUENT REORIENTATION PROVIDED. PT DENIES HAVING CHEST PAIN. PT DENIES HAVING SOB. PT DENIES HAVING ACUTE PAIN. PT EDUCATED ABOUT POC. PT STATED UNDERSTANDING AND DENIED HAVING FURTHER QUESTIONS. NOTIFIED OF PT'S LAST BM SEVERAL DAYS AGO. ORDERED NEW MEDS. NEW MEDS IMPLEMENTED. WILL CONTINUE TO MONITOR FOR PT TO HAVE A BM. PT HAD A MIDLINE PLACED DUE TO PT'S IV'S FREQUENTLY BECOMING INFILTRATED. VITAL SIGNS STABLE. BLOOD SUGARS STABLE. PT COMFORTABLE IN BED. PT DENIES HAVING FURTHER CONCERNS.
[2019-08-21 20:10] VITALS: BP 155/97
--- NOTE | 2019-08-22 04:25 | NUR ---
ASSUMED PT CARE AT 1900. PT IS AWAKE AND LAYING IN BED. NO FAMILY AT BEDSIDE. NO SIGN OF DISTRESS NOTED IN PT. FALL PRECAUTION IN PLACE. ASSESSMENT COMPLETED AND DOCUMENTED. SCHEDULED MEDS ADMINISTERED TO PT NEEDED. PT RESTS AND SLEEPS THROUGH THE NIGHT. DENIES ANY PAIN. NO FURTHER NEEDS REQUESTED AT THIS TIME.
[2019-08-22 05:10] VITALS: BP 131/79
[2019-08-22 05:13] LABS: HEMATOCRIT 38.2 % (42.0-52.0); HEMOGLOBIN 12.5 gm/dL (14.0-18.0); MCH 27.8 pg (26.0-34.0); MCHC 32.7 g/dL (28.0-37.0); MCV 85.1 fL (80.0-100.0); RBC 4.49 mil/uL (4.50-6.00); WBC 6.9 thou/uL (4.0-11.0)
[2019-08-22 05:16] LABS: CALCIUM 8.6 mg/dL (8.5-10.1); CREATININE 1.3 mg/dL (0.7-1.3); MAGNESIUM 1.9 mg/dL (1.8-2.4); POTASSIUM 3.9 mmol/L (3.5-5.1)
[2019-08-22 07:10] VITALS: BP 158/79
[2019-08-22 14:31] VITALS: BP 135/73
[2019-08-22 16:46] VITALS: BP 154/69
--- NOTE | 2019-08-22 18:15 | NUR ---
ASSUMMED PT CARE AT APPROXIMATELY 0700. PT AWAKE AND ORIENTED TO PERSON, PLACE, AND TIME. PT C HX OF DEMENTIA. FREQUENT REORIENTATION PROVIDED. PT DENIES HAVING CHEST PAIN. PT DENIES HAVING SOB. PT DENIES HAVING ACUTE PAIN. PT UPDATED AND PROVIDED EDUCATION OF POC. PT STATED UNDERSTANDING AND DENIED HAVING FURTHER QUESTIONS. NOTIFIED OF PT NOT HAVING A BM SINCE THE . IMPLEMENTED NEW ORDERS. NEW ORDERS IMPLEMENTED. PT HAS NOT HAD A BM. CONTINUING TO MONITOR BM. VITAL SIGNS STABLE. PT COMFORTABLE IN BED. PT UP C STANDBY ASSIST. PT DENIES HAVING FURTHER CONCERNS. FAMILY UPDATED ON POC. PT FAMILY STATED UNDERSTANDING AND DENIED HAVING FURTHER QUESTIONS. PAGED TWO TIMES TO NOTIFY THAT NEW MEDS DID NOT MAKE PT HAVE A BM. AWAITING TO CALL BACK.
[2019-08-22 19:30] VITALS: BP 155/94
[2019-08-23 05:01] VITALS: BP 142/79
--- NOTE | 2019-08-23 06:16 | NUR ---
ASSESSMENT: PT HAD A VERY LARGE SOFT BM. UROSTOMY BAG INTACT. YELLOW PURULENT URINE. VSS, AFEBRILE. SR PER MONITOR. ALERT AND ORIENT TIMES ONE. CONFUSED TO PLACE, TIME AND SITUATION. DOES COOPERATE AND FOLLOW SIMPLE COMMANDS. SLOW PROGRESS TOWARDS DC GOALS, WILL CONTINUE TO MONITOR.
[2019-08-23 07:30] VITALS: BP 143/82
--- NOTE | 2019-08-23 19:23 | NUR ---
ASSUMED CARE AT SHIFT CHANGE, ALERT TO SELF ONLY. ASKING TO DISCHARGE HOME, SPOKE WITH DAUGHTER X2, AND SHE EXPLAINED TO HIM THAT HE WAS NOT RELEASED. VSS AND SR ON THE MONITOR, PATIENT IS RESTLESS AND CONFUSED.HE PULLED HIS MIDLINE AND DR SMALL NOTIFIED. WILL CALL ID REQUESTED PER DR SMALL AND ASK FOR RECOMENDATION. WILL CONTINUE WITH POC.
[2019-08-23 19:28] VITALS: BP 146/84
--- NOTE | 2019-08-24 03:09 | NUR ---
ASSESSMENTS CHARTED, MEDS GIVEN CHARTED. PATIENT DRESSED AND READY TO LEAVE AT START OF SHIFT, BUT STAYING. IN ISOLATION FOR E COLI ESBL IN URINE. PATIENT PULLED OUT PICC LINE AT SHIFT CHANGE. PIV STARTED IN LEFT FOREARM BY IV TEAM. UP WITH STANDBY ASSIST. UROSTOMY BAG EMPTIED NEEDED. DENIED PAIN. PATIENT BECAME CONFUSED WITH SURROUNDINGS AND OBSESSED ABOUT ORGANIZING/CLEANING ROOM. MED GIVEN CHARTED. PLAN OF CARE TO SWITCH TO PO MEDS AND CONTINUE ANTIBIOTIC TREATMENT.
[2019-08-24 04:45] VITALS: BP 96/59
[2019-08-24 07:50] VITALS: BP 138/83
[2019-08-24] MEDS ORDERED: LIPITOR 20 MG T20 M1 PO (08:59)
[2019-08-24] MEDS ORDERED: TRAMADOL 50 MG50 MG PO (08:59)
[2019-08-24] MEDS ORDERED: LANTUS SUBQ (09:00)
[2019-08-24 10:07] VITALS: BP 138/83
--- NOTE | 2019-08-24 10:16 | NUR ---
Pt dcing home today with his dtr and HH. Dc account planner faxing referral and orders to [facility] for nursing and therapy. Pt has needed dme in the home. Care team updated.
[2019-08-24 10:22] VITALS: BP 138/83
[2019-08-24 11:00] VITALS: BP 142/64
--- NOTE | 2019-08-24 11:15 | NUR ---
OSTOMY CARE pt requested pouch change, states he changes it 2x week, alert but still some confusion present, stoma pink viable budded w/ clear yellow urine present, jamin precut convex 1' applied, peristomal skin intact, pt declines connection to dep drainage, supplies at bs, nursing staffing coordinator informed RECOMMENDATIONS cont w/ precut jamin 1 inch pouch #8481, change 2x week and prn
--- NOTE | 2019-08-24 11:34 | NUR ---
FAXED DC ORDERS/SUMMARY TO [facility] SPOKE WITH MELANIE IN INTAKE AND THEY RECEIVED DC ORDERS AND WILL NOTIFY PT'S FAMILY TIME OF VISITS.
--- NOTE | 2019-08-24 12:34 | NUR ---
PATIENT ALERT X3 WITH CONFUSION, DENIES PAIN, UP WITH STAND BY TO TOILET. PROGRESSED TOWARD GOALS WITH PLANS TO DC HOME WITH HOME HEALTH. SPOKE TO KEISHA TO INFORM HER OF DISCHARGE.
== END 2019-08-24 15:34 | disposition home health service (06) | DRG 689 ==
LOC: ER 12:02 → 2N 15:01
PROVIDERS: Emergency Medicine; ADMIT Internal Medicine
DX: N39.0 Urinary tract infection, site not specified (principal); G92 Toxic encephalopathy; F02.81 Dementia in other diseases classified elsewhere, unspecified severity, with behavioral disturbance; N17.9 Acute kidney failure, unspecified; R78.81 Bacteremia; I25.10 Atherosclerotic heart disease of native coronary artery without angina pectoris; E78.5 Hyperlipidemia, unspecified; G30.9 Alzheimer's disease, unspecified; Z66 Do not resuscitate; R13.10 Dysphagia, unspecified; E86.0 Dehydration; I12.9 Hypertensive chronic kidney disease with stage 1 through stage 4 chronic kidney disease, or unspecified chronic kidney disease; N18.3 Chronic kidney disease, stage 3 (moderate); E11.22 Type 2 diabetes mellitus with diabetic chronic kidney disease; D64.9 Anemia, unspecified; K59.00 Constipation, unspecified; B95.7 Other staphylococcus as the cause of diseases classified elsewhere; Z95.1 Presence of aortocoronary bypass graft; Z85.51 Personal history of malignant neoplasm of bladder; Z87.891 Personal history of nicotine dependence; Z79.82 Long term (current) use of aspirin; Z79.899 Other long term (current) drug therapy; Z93.2 Ileostomy status; Z90.6 Acquired absence of other parts of urinary tract
CPT/HCPCS: 10081; 27000

== ENCOUNTER 2019-10-31 14:16 | Inpatient (IN) | payer OTHER ==
[~2019-10-31] VITALS: Ht 172.7 cm; Wt 71.4 kg
[2019-10-31 13:00] VITALS: BP 124/76
[~2019-10-31 14:16] MED LIST changes: +LIPITOR 20 MG T20 M1 PO
[2019-10-31] MEDS ORDERED: ANUSOL-HC25 MG RECTAL (15:29)
[2019-10-31] MEDS ORDERED: LISINOPRIL2.5 MG PO (15:34)
[2019-10-31] MEDS ORDERED: MIRALAX119 GM PO (15:35)
[2019-10-31 17:59] LABS: ABSOLUTE NEUTROPHILS 4.2 thou/uL (1.4-8.2); BASOPHILS 0.7 % (0.0-2.0); EOSINOPHILS 0.6 % (0.0-3.0); HEMATOCRIT 41.5 % (42.0-52.0); HEMOGLOBIN 13.4 gm/dL (14.0-18.0); LYMPHOCYTES 18.6 % (24.0-44.0); MCH 27.5 pg (26.0-34.0); MCHC 32.3 g/dL (28.0-37.0); MONOCYTES 10.2 % (1.0-8.0); PLATELET COUNT 180 thou/uL (150-400); POLYS 69.9 % (36.0-66.0); RBC 4.88 mil/uL (4.50-6.00); RDW 15.9 % (10.5-14.5); WBC 6.1 thou/uL (4.0-11.0)
[2019-10-31 18:05] LABS: CALCIUM 9.7 mg/dL (8.5-10.1); CREATININE 1.5 mg/dL (0.7-1.3)
[2019-10-31 18:46] LABS: URINE BILIRUBIN NEGATIVE (Negative); URINE BLOOD TRACE (Negative); URINE CLARITY SL CLOUDY; URINE COLOR YELLOW; URINE GLUCOSE-RANDOM* NEGATIVE (Negative); URINE KETONES NEGATIVE (Negative); URINE LEUKOCYTES-REFLEX 1+ (Negative); URINE NITRITE-REFLEX POSITIVE (Negative); URINE PROTEIN (DIPSTICK) 2+ (Negative); URINE SPECIFIC GRAVITY <= 1.005 (1.005-1.035)
[2019-10-31 19:04] LABS: BACTERIA-REFLEX >30 Many /HPF (None Seen); CASTS None Seen /LPF (None Seen); SQUAMOUS None Seen /LPF (0-3); TRIPLE PHOSPHATE CRYSTALS 4-10 Moderate /LPF (None Seen); URINE RBC 0-2 Rare /HPF (0-2); URINE WBC-REFLEX 6-15 Few /HPF (0-5)
[2019-10-31 19:34] VITALS: BP 117/51
[2019-11-01 08:35] VITALS: BP 115/54
[2019-11-01 08:48] LABS: CREATININE 1.5 mg/dL (0.7-1.3); POTASSIUM 5.1 mmol/L (3.5-5.1)
[2019-11-01 20:00] VITALS: BP 119/62
[2019-11-01 21:40] VITALS: BP 119/62
[2019-11-02 09:28] VITALS: BP 101/55
[2019-11-02 21:30] VITALS: BP 108/60
[2019-11-03 09:06] VITALS: BP 99/60
[2019-11-03 09:15] VITALS: BP 118/63
[2019-11-03 13:55] LABS: ABSOLUTE NEUTROPHILS 2.9 thou/uL (1.4-8.2); BASOPHILS 0.6 % (0.0-2.0); EOSINOPHILS 1.7 % (0.0-3.0); HEMOGLOBIN 13.6 gm/dL (14.0-18.0); LYMPHOCYTES 20.9 % (24.0-44.0); MCH 27.6 pg (26.0-34.0); MCHC 32.4 g/dL (28.0-37.0); MCV 85.4 fL (80.0-100.0); MONOCYTES 8.3 % (1.0-8.0); PLATELET COUNT 157 thou/uL (150-400); POLYS 68.5 % (36.0-66.0); RBC 4.92 mil/uL (4.50-6.00); WBC 4.3 thou/uL (4.0-11.0)
[2019-11-03 14:06] LABS: CALCIUM 9.6 mg/dL (8.5-10.1); CREATININE 1.6 mg/dL (0.7-1.3); POTASSIUM 4.4 mmol/L (3.5-5.1)
--- NOTE | 2019-11-03 14:41 | H ---
[facility] [place] [address] HISTORY AND PHYSICAL Name: GERMAIN YADAV Room #: 523B-B ADM IN M.R.#: [id number] Admission: 10/31/19 Attend Phys: Nino Murphy DO Discharge: Date of : 34 Report #: [id number] THIS REPORT FOR: //name// CC: Nino Murphy Jada Basalt DATE OF SERVICE: 10/31/2019 INPATIENT PSYCHIATRIC EVALUATION ATTENDING PSYCHIATRIST: Nino Murphy D.O. STRAIGHT KNIFE CUTTER MACHINE: Kvng Funes M.D. REASON FOR ADMISSION: Alleged aggressive behavior, living with his daughter, Nguyen Cabrera, and son-in-law, Nguyen Cabrera. SOURCES OF INFORMATION: Records from [facility] where he originated. Past records from prior hospitalization here at [facility] from looks like last one [facility] in 2019. HISTORY OF PRESENT ILLNESS: The patient presented to [facility] ED with aggression in the home. He denied suicidal or homicidal ideations and psychosis. Daughter, Nguyen Cabrera, and son-in-law, Nguyen Cabrera, state the patient was assaultive when he began to fall, son-in-law called him, he was upset because he did not want to do what his daughter wanted him to do. The patient states "they try to control me and are aggressive towards me and not the other way round." He states they are just interested in taking his money. The patient has too many medical issues to list. 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 The patient has been living with his daughter and son-in-law in the house, which he claims issues, they feel that he is too much to handle at home and report that he has been physically assaultive and making threats on their lives. They report that he "is now welcome to come back and has only been agreed to come back to the ED for the patient." I explained that in the later stages of dementia, aggression often becomes problem. I am not supportive with the patient having a psychiatric illness, but rather feel that this is progression of his medical diagnosis of dementia. Apparently, the ER counselor explained to the family that he needs to be placed in long-term care facility and these arrangements cannot be done in the ED. The patient does not want to go in any hospitals, states he wants to go home. It is not clear whether the daughter is his DPOA or his guardian, she claims that she is his guardian, not just the DPOA, but the hospital has no record of this her being a DPOA. The situation was discussed with Dr. Em and he reports understanding of not placing the patient in [facility] [address] [place] [address] HISTORY AND PHYSICAL Name: GERMAIN YADAV Room #: 523B-B ADM IN M.R.#: [id number] Admission: 10/31/19 Attend Phys: Nino Murphy DO Discharge: Date of : 32 Report #: [id number] short-term psychiatric treatment. The patient and the family's questions and concerns were addressed. Apparently, this was a telemedicine assessment done at 1:45 p.m. on 10/29/2019, so it looks like he did get admitted medically to [facility]. Unfortunately, there is not any lab work handed from [facility], which is not good, but reality of this situation for my past history and physical, he was brought to the Emergency Room by [place], [place] CIT officer for repeated calls to the police. This was back 12/19/2018, believes his was in the residence, though she had been placed several weeks back at a skilled nursing. PAST MEDICAL HISTORY: Includes hypertension, diabetes mellitus, hyperlipidemia, bladder and prostate removed in 2005, urostomy placed. PAST SURGICAL HISTORY: CABG x 3, herniorrhaphy, tonsillectomy, cystectomy, bladder removal with urostomy placement as well as prostatectomy. MEDICATIONS: His current home medication after checking with the daughter, I believe, the name is actually Debbie, are lisinopril 5 mg daily and aspirin 81 mg p.o. daily. SOCIAL HISTORY: Denied alcohol, recreational, or tobacco use. ALLERGIES: No known drug intolerances. REVIEW OF SYSTEMS: Cannot be reliably done with the patient, he basically will say no to everything. VITAL SIGNS: On the Geriatric Psych Unit, temperature 36.1, pulse 79, respirations 16, BP 124/66, O2 sat 94%. Blood sugar this evening at 1706 was 255. Given I do not have laboratories from [facility], I order CBC, BMP and urinalysis. I went ahead and made several medication adjustments already and will review those in the plan. PHYSICAL EXAMINATION: Frail, weight diminishing, BMI 24.5, weight 73.057 kilos. MENTAL STATUS EXAMINATION: This is a well-developed, frail-appearing male, appearing stated age. Attention limited. Concentration limited. Speech is normal in rate, volume and tone. Thought process linear and very limited. Thought content focused on the present. No psychomotor agitation. No psychomotor retardation. Denied suicidal intent or plan. Denied homicidal intent or plan. Memory known to be grossly impaired. Insight impaired. Judgment impaired. Fund of knowledge well below average. FORMULATION: An 88-year-old male, brought to [facility] due to [facility] [address] [place] [address] HISTORY AND PHYSICAL Name: GERMAIN YADAV Room #: 523B-B ADM IN M.R.#: [id number] Admission: 10/31/19 Attend Phys: Nino Murphy, DO Discharge: Date of : 32 Report #: [id number] alleged aggressive behavior and family unable to care for him. DIAGNOSES AT THIS TIME: Major neurocognitive disorder due to multiple etiologies with behavioral disturbance. PLAN: Start MiraLax 17 grams p.o. daily, lisinopril 5 mg p.o. daily, aspirin 81 mg p.o. daily for cardioprotection, Depakote started 500 mg p.o. b.i.d., Haldol 2 mg p.o. b.i.d., house PRNs were ordered. Evaluate, stabilize, obtain collateral. ESTIMATED LENGTH OF STAY: 10-14 days. CBC, BMP, urinalysis will be ordered. We will set up a family meeting in the next few days. I am a little bit concerned as placement was attempted previously and the family wanted to take him home. We will also need to clarify who the DPOA is right now. The patient at least will be hospitalized under the [facility] doctrine. STRENGTHS: He is insured. WEAKNESSES: Limited family support. On the memory care placement. <ELECTRONICALLY SIGNED> By: Nino Murphy DO 11/03/19 [id number] [id number] Nino Murphy DO /nt
[2019-11-03 19:26] VITALS: BP 114/62
[2019-11-04 06:24] VITALS: BP 128/67
[2019-11-04 19:33] VITALS: BP 87/35
[2019-11-05 07:55] VITALS: BP 118/67
[2019-11-05 19:45] VITALS: BP 101/55
--- NOTE | 2019-11-05 21:56 | H ---
[facility] [place] [address] HISTORY AND PHYSICAL Name: GERMAIN YADAV Room #: 523B-B ADM IN M.R.#: [id number] Admission: 10/31/19 Attend Phys: Nino Murphy DO Discharge: Date of : 32 Report #: [id number] THIS REPORT FOR: cc: Jada Feliciano MD,Jada Funes,Kvng Ivy MD ~ CC: Nino Feliciano This is a medical consult on the psychiatric service of Dr. Nino Murphy. 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 He became exceedingly worse after the of his approximately a year ago. Apparently most recently, he has been living with his daughter, Cheyenne, and her , Nguyen Dobbins, in their home. He had been living in a long-term for at that time, I do not know when this ended. Because of alleged aggressive behavior, the patient was taken to [facility]. The patient, with a history of paranoia, believes that his family is trying to control him and take his money. He is admitted for further evaluation and treatment and possible placement. He is on the Adult Behavioral Health Unit at the time of my exam. PAST MEDICAL HISTORY: The patient has known type 2 diabetes mellitus for greater than 25 years. He has had bladder cancer and cystectomy and prostatectomy and has a functioning urostomy times many years. He has a history of coronary artery disease and has had coronary bypass surgery in the remote past. He was a smoker, but quit at the time of his coronary bypass surgery. There is a history of hypertension and hyperlipidemia. 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 He has known hypertension. 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 He has had cataract surgeries in the past bilaterally. At the time of his last discharge, he was on the following medications: According to the discharge note from this hospital, lisinopril 5 mg by mouth daily, donepezil 10 mg by mouth daily, Tylenol on a p.r.n. basis, divalproex 250 mg by mouth twice daily, gabapentin 100 mg by mouth twice daily, risperidone 0.25 mg by mouth twice daily, atorvastatin 20 mg by mouth daily, tramadol 25 mg every 4 hours as needed for pain on a scale of 4-6/10, Lantus 4 units nightly at bedtime. [address] [address] HISTORY AND PHYSICAL Name: GERMAIN YADAV Room #: 523B-B ADM IN M.R.#: [id number] Admission: 10/31/19 Attend Phys: Nino Murphy DO Discharge: Date of : 32 Report #: [id number] ALLERGIES: He has no known drug allergies. His last hemoglobin A1c at this facility was 6.5. Please note, he has chronic right testicular pain and an ultrasound was done during August 2019 visit, which suggested chronic enlargement of the right epididymis and this could be reflecting old epididymitis and moderate right hydrocele. The right testicle was described as inhomogeneous with band of low density changes along one side, possibly reflecting an old testicular injury. SOCIAL HISTORY: The patient is for about a year. He has 2 grown daughters. He is an ex-smoker. There is no history of alcohol or recreational drug abuse. FAMILY HISTORY: Significant for longevity. REVIEW OF SYSTEMS: The patient was in an angry mood and limited his response to questions regarding his general health. No other significant symptoms were noted during our visit. PHYSICAL EXAMINATION: VITAL SIGNS: Temperature 97.0, pulse 78, respirations 16, oxygen saturation on room air is 94% and the blood pressure is 124/76. His bed scale weight is recorded as 161.0 pounds and his height 5 feet 8 inches. GENERAL: The patient is an elderly male who is somewhat angry, but not at me, during our examination. HEENT: Extraocular muscles are intact. Oropharynx is moist and pink. No lesions or exudates or thrush. NECK: Supple. There is no adenopathy, thyromegaly, mass, JVD or significant bruit. LUNGS: Fairly clear bilaterally. CARDIOVASCULAR: Reveals a regular rhythm with no significant murmur, gallop or rub. ABDOMEN: Soft. Bowel sounds are present. No visceromegaly of the liver or spleen is noted. The urostomy is noted in the lower quadrant. EXTREMITIES: There is no cyanosis or clubbing or significant peripheral edema. He does have mild stasis changes in bilateral lower extremities. No evidence of skin breakdown on heels or lower back. The patient is able to walk without difficulty. MENTAL STATUS: The patient is alert. He is oriented to person, but not place or time. He is somewhat paranoid about family members being out to get him and get his money. No overt hallucinations. Affect is somewhat blunted by his anger. He was otherwise cooperative and pleasant with me. NEUROLOGICAL EXAM: The patient has a stocking and glove distribution sensory deficit chronically. His gait is fairly stable at this time and there is no Romberg sign. Babinski's was negative bilaterally. His general motor strength is 5/5 without any focal deficits. [facility] [address] [place] [address] HISTORY AND PHYSICAL Name: GERMAIN YADAV Room #: 523B-B ADM IN M.R.#: [id number] Admission: 10/31/19 Attend Phys: Nino Murphy, DO Discharge: Date of : 32 Report #: [id number] ASSESSMENT AND PLAN: 1. Dementia with behaviors -- I will defer on this to Dr. Murphy. It is my attention to avoid excessive polypharmacy whenever possible. 2. Type 2 diabetes mellitus. We will start the patient on a sliding scale and check his blood sugars several times every day to make sure that his level of control remains adequate. 3. Hypertension. We will monitor and treat accordingly. Goal is to keep systolic blood pressure less than 140 on the average. 4. Coronary artery disease -- no current symptoms or evidence of cardiac decompensation. 5. Ileostomy, status post cystectomy and prostatectomy in the past. Continue current maintenance. It is noted that the patient has a chronic urinary colonization with multiple organisms and I do not recommend treating for infection unless the patient develops any signs or symptoms of urinary tract infection including but not limited to fever, low back pain, further alteration of mental status and evidence of ongoing infectious problems such as tachycardia or sepsis. 6. Rest of medical history is as outlined above. <ELECTRONICALLY SIGNED> By: Kvng Funes MD 11/05/19 [id number] Kvng Funes MD /nt
[2019-11-06 08:52] VITALS: BP 121/70
[2019-11-06 19:43] VITALS: BP 120/67
[2019-11-07 08:42] VITALS: BP 104/60
[2019-11-07 08:45] VITALS: BP 100/60
[2019-11-07] MEDS ORDERED: LISINOPRIL2.5 MG PO (09:30)
[2019-11-07] MEDS ORDERED: DEPAKOTE SPRIN125 MG PO (09:31)
[2019-11-07] MEDS ORDERED: HALOPERIDOL 1 MG1 MG PO (09:32)
--- NOTE | 2019-11-08 21:29 | D ---
[facility] [place] [address] DISCHARGE SUMMARY Name: GERMAIN YADAV Room #: 523B-B [facility] IN M.R.#: [id number] Admission: 10/31/19 Attend Phys: Nino Murphy DO Discharge: 11/07/19 Date of : 32 Report #: [id number] THIS REPORT FOR: cc: Jada Feliciano MD, Lynda MD Kerstein, Andrew H. DO ~ THIS REPORT FOR: //name// CC: Nino Feliciano DATE OF SERVICE: 11/07/2019 ATTENDING PHYSICIAN: Nino Murphy DO. 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 The patient's comorbidities include hypertension, resolved; coronary artery disease, status post bypass graft without angina; diabetes mellitus type 2 without complications. The patient has a urostomy in place and has had resection of his bladder. Reportedly, the patient will be discharging to [facility]. The patient will need memory care. The patient does require 24-hour supervision and assistance. DIET: Regular. ACTIVITY LEVEL: As tolerated. His gait has been declining, so he should be a min assist initially at [facility]. MEDICATIONS: Lisinopril 2.5 mg p.o. daily for hypertension; Depakote Sprinkles 625 mg p.o. b.i.d., recommend Depakote level in 1 week; Haldol 2 mg p.o. b.i.d. for additional mood stabilizing effect; aspirin 81 mg p.o. daily for cardioprotection. Otherwise, his medications are being minimized due to his advanced dementia, frailty, age. LABORATORY DATA: This admission, most recent CBC on 11/03/2019 was normal except hemoglobin 13.6, RDW 16.0. Segmented neutrophil percentage 68.5, and lymphocyte percentage 20.9, monocyte percentage of 8.3. Apparently, there were none done on this visit at this hospital. Urinalysis had numerous abnormalities including bacteria, epithelial cells, leukocyte esterase. Microbiology showed E. coli and Proteus mirabilis. I had discussion with Dr. Funes who had followed him most of the admission and he felt with his urostomy this is most likely colonization unless he was febrile or very ill, he would not treat him [address] [address] DISCHARGE SUMMARY Name: GERMAIN YADAV Room #: 523B-B [facility] IN [facility]#: [id number] Admission: 10/31/19 Attend Phys: Nino Murphy, Discharge: 11/07/19 Date of : 32 Report #: [id number] further. So the patient was not given antibiotics after the initial day. REASON FOR ADMISSION: Back on 10/31/2019, he was living with his daughter, Edith, allegedly aggressive behavior at home. He was taken to the [facility] ED and he did not want to do what his daughter wanted him to do, felt they were trying to control him. The ER advised placement. HOSPITAL COURSE: The patient was admitted to Geriatric Psychiatry Unit. I had had this patient previously in December or early 01/2019. At that time, placement in Memory Care Facility was advised and the family had decided to take him home, that effort was in progress. Obviously at this point, the patient has appeared to have acceleration in his neurodegenerative disease and placement is essential. Other notes this admission, EKG showed QTC 466, QT 399, GA interval 187, ventricular rate 82. PHYSICAL EXAMINATION: VITAL SIGNS: On the day of discharge, temperature 35.9, pulse 71, respirations 15, BP 104/60, O2 sat 99%. MUSCULOSKELETAL: Sitting reclined in a lounge chair. MENTAL STATUS EXAMINATION: This is a well-developed, ill, frail appearing male apparently stated age. Attention limited. Concentration limited. Oriented to self. Thought process linear and very limited. Thought content, relative poverty of thought. No psychomotor agitation, some psychomotor retardation. Denied SI or HI. Denied auditory, visual, or tactile hallucinations. Memory formally tested. Insight impaired. Judgment impaired. Fund of knowledge well below average. PROGNOSIS: For this patient is guarded to poor. Family was advised of this and if he stops eating, he should meet hospice criteria. <ELECTRONICALLY SIGNED> By: Nino Murphy DO 11/08/19 2129 [id number] Nino Murphy DO /nt
--- NOTE | 2019-11-09 15:32 | EKG ---
[facility] [place] [address] ELECTROCARDIOGRAM REPORT Name: GERMAIN YADAV Room #: [facility] DIS IN M.R.#: [id number] Admission: 10/31/19 Attend Phys: Nino Murphy DO Discharge: 11/07/19 Date of : 32 Report #: [id number] THIS REPORT FOR: cc: Jada Feliciano MD, Lynda MD Lundgren,Misael De La Paz MD [facility] ~ THIS REPORT FOR: //name// [facility] Test Date: 2019-10-31 Test Time: 17:55:47 Pat Name: GERMAIN YADAV Department: Room: [facility] B Gender: M Field Software Engineer: Demar FORRESTER : 1930 Requested By: Nino Murphy Order Number: [id number] MD: Misael Ye Measurements Intervals [place] Rate: 82 P: 104 DE: 187 QRS: -65 QRSD: 102 T: 104 QT: 399 QTc: 466 Interpretive Statements Sinus rhythm Poor R wave progression Anterior infarct, age indeterminate Nonspecific ST and T wave abnormality Compared to ECG 07/02/2019 17:03:42 No significant change was found Electronically Signed On 11-02-2019 9:20:22 JOURNEYMAN GLAZIER by Misael Ye [email or web address] <ELECTRONICALLY SIGNED> By: Misael Ye MD, FAC 11/02/19 0920 54 54 Misael Ye MD, [facility] /EPI
== END 2019-11-07 11:13 | DRG 57 ==
LOC: SBH
PROVIDERS: Internal Medicine; ADMIT Psychiatry & Neurology Psychiatry
DX: G30.9 Alzheimer's disease, unspecified (principal); F02.81 Dementia in other diseases classified elsewhere, unspecified severity, with behavioral disturbance; Z93.2 Ileostomy status; F01.51 Vascular dementia, unspecified severity, with behavioral disturbance; I10 Essential (primary) hypertension; I95.9 Hypotension, unspecified; F29 Unspecified psychosis not due to a substance or known physiological condition; I25.10 Atherosclerotic heart disease of native coronary artery without angina pectoris; E11.9 Type 2 diabetes mellitus without complications; E78.5 Hyperlipidemia, unspecified; Z90.6 Acquired absence of other parts of urinary tract; Z95.1 Presence of aortocoronary bypass graft; Z90.89 Acquired absence of other organs; Z79.899 Other long term (current) drug therapy
CPT/HCPCS: 10880